=== PATIENT | female | born 1950 | race Caucasian/White ===

== ENCOUNTER 2018-02-19 07:14 | Day surgery (SDC) | payer MEDICARE ==
--- NOTE | 2018-02-10 16:38 | HP ---
CC: Dr. Padma Desouza * PREOPERATIVE HISTORY AND PHYSICAL: DATE OF ADMISSION/SURGERY: This patient is scheduled for same-day surgery admission by Dr. Allen on 02/19/18. DATE OF PREOPERATIVE HISTORY AND PHYSICAL EXAMINATION: 02/10/18. ATTENDING SURGEON: Dr. Opal Allen * (dictated by Maria Elena Michele NP). CHIEF COMPLAINT: Left breast nipple discharge. HISTORY OF PRESENT ILLNESS: The patient is a 67-year-old female, recently evaluated by Dr. Allen for left breast nipple discharge. The patient reports that for the past few months, her left breast was enlarged and about the same time, she noticed clear discharge from a duct in the left nipple. The nipple discharge was described as clear and spontaneous and unilateral. It did not appear bloody. She denies any other breast problems such as lumps or changes in the texture of the breast and she does do routine self-breast exam. She has never had radiation to the chest. She did have a breast biopsy 15 or 20 years ago, reportedly benign and knows that she has a clip in place. There are no first-degree relatives with breast cancer, but her maternal grandmother had breast cancer at age 76. There is no family history of ovarian cancer. She was on control pills for about 15 years, 38 years ago. She was 13 with her first menstrual period, 29 with the of her first child and she did breastfeed. She underwent an hysterectomy at age 40, although the ovaries were left in. Dr. Allen examined the patient and noted clear discharge from a central duct in the left breast. The discharge was heme negative. Dr. Allen has discussed the findings with the patient and has recommended left breast terminal duct excision as a same-day surgery procedure. She discussed the nature of the surgical procedure, the relevant risks and benefits and today, I reviewed the expected postoperative care and recovery. The patient has had a chance to ask questions and stated that she understands the information and is satisfied with the answers given to her questions. She will sign surgical consent on the day of surgery. PAST MEDICAL HISTORY: Significant for hypertension, type 2 diabetes mellitus, chronic non-alcoholic liver disease, and primary osteoarthritis. PAST SURGICAL HISTORY: section, July 1980; open cholecystectomy, October 1980; hysterectomy around 1989; partial thyroidectomy, date unknown; D and C x2 in the . OB HISTORY: 1, para 1. Status post hysterectomy. Last pelvic and Pap smear in 2015. Last mammogram, December 2017. MEDICATIONS: 1. Losartan/hydrochlorothiazide 50/12.5 mg 1 tablet daily every morning. 2. Pravachol 20 mg 1 tablet p.o. at bedtime. 3. Metformin 500 mg 2 tablets by mouth at bedtime, and she will hold that dose on the night before surgery. 4. Aspirin 81 mg p.o. daily, and she will hold that for 5 days before surgery. 5. Multivitamin daily. 6. Os-Saad plus D daily. ALLERGIES: PENICILLIN causes hives, SULFIDES cause shortness of breath and flushing of the face, HOLTER MONITOR GEL caused rash, CECLOR caused some type of unspecified reaction. FAMILY HISTORY: Maternal grandmother had breast cancer at age 76. No family history of ovarian cancer. No known anesthesia complications, bleeding tendencies, or clotting disorders. SOCIAL HISTORY: She is and lives alone. A friend will bring her to the hospital and pick her up after surgery. She is a non-smoker and rarely drinks alcohol. She denies the use of other substances. She routinely exercises with water, yoga, and Pilates. REVIEW OF SYSTEMS: Constitutional: No recent infections. No fevers, chills, excessive fatigue, or weight loss. Endocrine: Type 2 diabetes and she does not check fingersticks routinely, but her last hemoglobin A1c in November was 6.9 ; she has had thyroid disease and had a partial thyroidectomy many years ago. Hematologic: No easy bruising or bleeding. She did receive a blood transfusion in 1979 after the section. Breast Exam: As described in history of present illness. Respiratory: No dyspnea on exertion or chronic cough. Cardiovascular: No anginal chest pain or palpitations. Gastrointestinal : No nausea, vomiting, diarrhea, GI bleeding, or constipation. Genitourinary: No dysuria. Musculoskeletal: Osteoarthritis with no current complaints of joint or back pain. Neurologic: No headache, blurred vision. No areas of focal weakness or numbness. General: No previous anesthesia complications. No history of DVT or pulmonary embolism. While she has been on baby aspirin daily , she has noticed that she bleeds a little easier. PHYSICAL EXAMINATION GENERAL SURVEY: The patient is a 67-year-old female, well-developed, overweight , in no acute distress. VITAL SIGNS: Height 65 inches, weight 185 pounds, body mass index 30.8. Blood pressure 150/90, pulse 76 and regular, respiratory rate 16, temperature 97.4 tympanic. HEENT: Benign. NECK: Supple. No cervical lymphadenopathy. No supraclavicular lymphadenopathy. BREASTS: Slightly asymmetric with the left being slightly larger than the right. No skin dimpling or nipple retraction. Palpation of the right breast reveals no discrete masses and there is no nipple discharge; palpation of the left breast reveals no discrete masses, there is clear discharge from a central duct and the discharge is heme negative. No axillary adenopathy bilaterally. LUNGS: Breath sounds bilaterally clear and equal. HEART: Regular rate and rhythm. No murmurs or rubs appreciated. BACK: No CVA tenderness. ABDOMEN: Well-healed surgical scars. Active bowel sounds. Soft, nondistended , and nontender throughout. No obvious masses or organomegaly, or evidence of ventral hernia. PELVIC EXAM: Deferred. RECTAL EXAM: Deferred. EXTREMITIES: Warm without edema or skin ulceration. NEUROLOGIC: Alert and oriented x3. Steady gait. SKIN: Warm, dry, and intact. IMPRESSION: Left breast nipple discharge. PLAN: Same-day surgery admission to Dr. Allen's service on 02/19/18, for left breast terminal duct excision. SHELBY MICHELE, MATIAS [id number]/[facility] #: [id number] MICHAEL
[~2018-02-19 07:14] MED LIST: Buffered Lidocaine 0.9% SYRIN* 5 ML/SYR SYRINGE INTRADERM ONE; Sodium Citrate/Citric Acid* 15 ML UDC PO ONE
[2018-02-19] MEDS ORDERED: Clindamycin 900 MG IVPREMIX(* 900 MG/50 ML SDV IV ONE (07:22)
[2018-02-19] MEDS ORDERED: Sodium Citrate/Citric Acid* 15 ML UDC ONE (07:23)
[2018-02-19] MEDS ORDERED: Naloxone* 0.4 MG/ML 1 ML VIAL IV PRN (09:37)
[2018-02-19] MEDS ORDERED: Lidocaine 1% INJ* 10 MG/ML 30 ML SDV ONE (09:44)
[2018-02-19] MEDS ORDERED: Bupivacaine 0.5%* 50 ML VIAL ONE (09:44)
[2018-02-19] MEDS ORDERED: Midazolam* 1 MG/ML 2 ML VIAL (2 MG) ONE (09:59)
[2018-02-19] MEDS ORDERED: fentaNYL* 50 MCG/ML 2 ML VIAL (100 MCG VIAL) ONE (09:59)
[2018-02-19] MEDS ORDERED: Lidocaine 2% PF * 5 ML VIAL ONE (10:12)
[2018-02-19] MEDS ORDERED: Propofol* 10 MG/ML 20 ML BTL IV PUSH ONE (10:12)
--- NOTE | 2018-02-19 11:12 | BRIEFOPN ---
Brief Operative Note - Surgery Procedures: Procedures COLONOSCOPY (03/23/01) SKIN SUTURE NEC (12/18/94) 02/19/18 Op Note Pre-op dx: left breast nipple discharge Post-op dx: same Procedure: left breast terminal duct excision Surgeon: Alejandro Asst: Judd Anesth: local-MAC EBL: 10 cc SCDs on during surgery ABx: given pre-op Pt. tolerated the procedure well and was transferred to in a stable condition. CLFoster
[2018-02-19 11:59] VITALS: BP 128/78
--- NOTE | 2018-02-19 13:27 | OP ---
CC: Padma Desouza MD.* DATE OF OPERATION: 02/19/18 - SDS DATE OF : 50 SURGEON: Opal Allen MD DOCUMENT CONTROLLER: Judd. PRE-OP DIAGNOSIS: Left breast pathologic nipple discharge POST-OP DIAGNOSIS: Left breast pathologic nipple discharge OPERATIVE PROCEDURE: Left breast terminal duct excision INDICATIONS: Ms. Funes is a 67-year-old woman who presented to the office with symptomatic pathologic nipple discharge, prompting the plan for surgical intervention. DESCRIPTION OF PROCEDURE: She was brought to the operating room, placed on the OR table in a supine position and given IV sedation. The left breast was prepped and draped in the usual sterile fashion. After infiltrating with local anesthetic, a lacrimal probe was placed in the duct that was producing the discharge. This was somewhat difficult but it was very clear which duct was producing the discharge, so it was accurate. Then a curvilinear and circumareolar incision was made after infiltrating with local anesthetic and the subcutaneous tissue was divided with electrocautery in a subareolar fashion until the duct with the probe in it was encountered. This duct was then dissected free and doubly clamped and divided, and then ligated. The nipple side of the duct had a little bit of inspissated material that came out that was sent with the specimen ultimately. Then a cone of glandular tissue surrounding the duct was excised using electrocautery, marked in the usual fashion with the additional kassie of a double stitch marking the duct and handed off as a specimen. Hemostasis was assured with electrocautery. Once this appeared adequate closure was accomplished after instilling some additional local with 3-0 Vicryl in the subcutaneous layer and the skin was closed with 4- 0 Prolene in a subcuticular fashion. Steri-Strips and a dry sterile dressing were applied. All sponge and instrument counts were correct. The patient tolerated the procedure well and was transferred to Recovery in a stable condition. [id number]/[facility] #: [id number] [facility]
== END 2018-02-19 12:04 | disposition home or self-care (01) ==
LOC: OR 07:14
PROVIDERS: ATTEND Surgery
DX: D24.2 Benign neoplasm of left breast (principal); N64.52 Nipple discharge; I10 Essential (primary) hypertension; E11.9 Type 2 diabetes mellitus without complications; Z79.84 Long term (current) use of oral hypoglycemic drugs; M19.90 Unspecified osteoarthritis, unspecified site; K76.89 Other specified diseases of liver
CPT/HCPCS: 88307; A9270-GY; J2250; J2704; J3010

== ENCOUNTER 2018-11-16 06:18 | Inpatient (IN) | payer MEDICARE ==
--- NOTE | 2018-10-28 11:14 | HP ---
HISTORY AND PHYSICAL: DATE OF ADMISSION/SURGERY: 11/16/18. DATE OF OFFICE VISIT: 10/27/18. SURGEON: Danica Stoddard MD.* (DICTATED BY SANTANA SMITH) PROCEDURE: Left total knee arthroplasty. CHIEF COMPLAINT: Left knee pain. HISTORY OF PRESENT ILLNESS: Ms. Funes is a 67-year-old female with continued complaints of left knee pain. She has failed conservative treatment and elected to proceed with a left total knee arthroplasty. PAST MEDICAL HISTORY: Diabetes, hypertension, hyperlipidemia, and sleep apnea. PAST SURGICAL HISTORY: Hysterectomy, partial thyroidectomy, , D and C , left breast ductal excision, and cholecystectomy. CURRENT MEDICATIONS: 1. Trulicity 0.75 mg/0.5 mL injection once a week. 2. Atorvastatin calcium 10 mg daily. 3. Losartan potassium/hydrochlorothiazide 50/12.5 mg daily. 4. Metformin 500 mg 3 tablets once a day. 5. Aspirin 81 mg daily. ALLERGIES: PENICILLIN, SULFIDES, and CECLOR. FAMILY HISTORY: Coronary artery disease and diabetes. SOCIAL HISTORY: She is a 67-year-old female. She lives alone. She does not smoke or use drugs. Uses occasional alcohol. REVIEW OF SYSTEMS: A complete 14-point review of systems was reviewed with the patient. It was positive for diabetes. She denies history of DVT, PE, hepatitis, HIV or anesthesia problems. PHYSICAL EXAMINATION GENERAL: She is well developed, well nourished, in no acute distress. VITAL SIGNS: She stands 5 feet 5 inches tall, weighs 180 pounds. Her blood pressure is 138/86 and heart rate is 100. HEENT: Normocephalic, atraumatic. NECK: Supple. No palpable lymph nodes. PULMONARY: The lungs are clear to auscultation bilaterally. CARDIO: Regular rate and rhythm. Strong S1, S2. ABDOMEN: Soft, nontender, nondistended. NEUROLOGICAL: She is alert and oriented x3. MUSCULOSKELETAL: Left lower extremity: The skin is intact. There are no open wounds or abrasions. There is a moderate joint effusion of the left knee. She has some tenderness over the medial and lateral joint line. She walks with an antalgic type gait, favoring her left knee. Range of motion is 5 to 110 degrees of flexion with patellofemoral crepitus. She has 2+ dorsalis pedis pulse, intact sensation and her lower extremity muscle group strengths are intact at 5/5. ASSESSMENT AND PLAN: Ms. Funes is a 67-year-old female with end-stage osteoarthritis of the left knee. She has failed conservative treatment and elected to proceed with a left total knee arthroplasty. Her surgery is scheduled for 11/16/[address] Stoddard discussed the risks and benefits of the surgery at today's visit and all of her questions were answered. She will follow up with Dr. Stoddard 2 weeks after the surgery. SANTANA SMITH [id number]/[facility] #: [id number] MICHAEL
[~2018-11-16 06:18] MED LIST changes: -Sodium Citrate/Citric Acid* 15 ML UDC PO ONE; +Tranexamic Acid 1,000 MG in NS 0.9% 50 ML* (outpatient use) IV SCH
--- OUTSIDE RECORDS SUMMARY | 2018-11-16 06:21 | XMS REPORT | Continuity of Care Document ---
:1950 External Reference #:[id number] Author Name Rico Sue M.D. Address [address] [place] [address] Care Team Providers Name Role Phone Padma Desouza M.D. Primary Care Physician Unavailable Payers Type Date Identification Numbers Payment Provider Subscriber Policy Number: [id number] Medicare - [facility] Melissa Funes PayID: [id number] [address] [place] [address] Policy Number: [id number] [facility] Melissa Funes PayID: [id number] [address] [place] [address] Advance Directives Description No Information Available Problems Date Description Provider Status Onset: Essential hypertension Active Onset: 09/18/2015 Hypercholesterolemia Rico Sue M.D. Active Onset: 09/20/2015 Nuclear senile cataract Rico Sue M.D. Active Onset: 09/20/2015 Type 2 diabetes mellitus with mild Rico Sue M.D. 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 Onset: 10/09/2016 Type 2 diabetes mellitus with mild Rico Sue M.D. 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 Atorvastatin Active Tablets 10mg Unknown Calcium 000 Trulicity Active Solution 0.75mg/0.5 Inject Unknown 000 Pen-Inject ML 0.75MG Once A Week Losartan Active Tablets 50-12.5mg Cotton, Potassium/Peggs 000 Padma chlorothiazide M.D. Pravastatin Hx Tablets 20mg Cotton, Sodium 000 - Padma M.D. 018 Lisinopril Hx Tablets 10mg Cotton, 000 - Padma M.D. 016 Aspirin Ec Hx Tablets DR 81mg 1 daily Unknown 000 - 018 Lisinopril-Hydr Hx Tablets 10-12.5mg every Unknown ochlorothiazide 000 - day 017 Multiple Hx Tablets Unknown Vitamins 000 - 018 Calcium 500+D Hx Tablets 500-400mg- Unknown High Potency 000 - Unit 018 Immunizations Description No Information Available Vital Signs Description No Information Available Results Description No Information Available Procedures Date Code Description Status 05/11/2018 44401 Scanning Computerized Opthalmic Diagnostic Posterior Seg Completed Retina 05/11/2018 95074 Est Patient Comprehensive Exam Completed 10/16/2017 68492 Scanning Computerized Opthalmic Diagnostic Posterior Seg Completed Retina 10/16/2017 75358 Determination Of Refractive State Completed 10/16/2017 40341 Est Patient Comprehensive Exam Completed 04/14/2017 33843 Scanning Computerized Opthalmic Diagnostic Posterior Seg Completed Retina 04/14/2017 77013 Est Patient Comprehensive Exam Completed 10/09/2016 90448 Scanning Computerized Opthalmic Diagnostic Posterior Seg Completed Retina 10/09/2016 97895 Est Patient Comprehensive Exam Completed 09/20/2015 45554 Scanning Computerized Opthalmic Diagnostic Posterior Seg Completed Retina 09/20/2015 61814 Est Patient Comprehensive Exam Completed 09/19/2014 84301 Est Patient Comprehensive Exam Completed 09/19/2014 60277 Fundus Photography With Interpretation And Report Completed 09/19/2013 97871 Scanning Computerized Opthalmic Diagnostic Posterior Seg Completed Retina 09/19/2013 84792 Est Patient Comprehensive Exam Completed 09/09/2012 16382 Scanning Computerized Opthalmic Diagnostic Posterior Seg Completed Retina 09/09/2012 47943 Est Patient Intermediate Exam Completed 03/08/2012 05095 Scanning Computerized Opthalmic Diagnostic Posterior Seg Completed Retina 03/08/2012 46913 Determination Of Refractive State Completed 03/08/2012 06154 Est Patient Comprehensive Exam Completed 03/07/2011 82774 Scanning Computerized Opthalmic Diagnostic Posterior Seg Completed Retina 03/07/2011 00607 Est Patient Comprehensive Exam Completed 09/06/2010 36372 Est Patient Intermediate Exam Completed 03/07/2010 11803 Est Patient Intermediate Exam Completed 03/07/2010 18866 Determination Of Refractive State Completed 03/07/2010 76526 Scanning Laser W/Interp And Report Completed 09/06/2009 59567 Scanning Laser W/Interp And Report Completed 09/06/2009 77843 Est Patient Intermediate Exam Completed 03/06/2009 34592 Scanning Laser W/Interp And Report Completed 03/06/2009 20082 Est Patient Intermediate Exam Completed 10/12/2008 28260 Fundus Photography With Interpretation And Report Completed 10/12/2008 69042 Determination Of Refractive State Completed 10/12/2008 90086 Est Patient Intermediate Exam Completed 06/05/2008 09819 Scanning Laser W/Interp And Report Completed 06/05/2008 54880 Est Patient Intermediate Exam Completed 12/02/2007 66969 Est Patient Intermediate Exam Completed 12/02/2007 19518 Scanning Laser W/Interp And Report Completed 08/30/2007 33942 Scanning Laser W/Interp And Report Completed 08/30/2007 49939 Est Patient Comprehensive Exam Completed 06/01/2007 21445 Scanning Laser W/Interp And Report Completed 06/01/2007 27747 Est Patient Intermediate Exam Completed 06/05/2006 44522 Determination Of Refractive State Completed 06/05/2006 09332 Est Patient Comprehensive Exam Completed 05/30/2005 98302 Fundus Photography With Interpretation And Report Completed 05/30/2005 81859 Determination Of Refractive State Completed 05/30/2005 88833 Est Patient Comprehensive Exam Completed 02/23/2004 114 Polycarb SV Completed Encounters Type Date Location Provider Dx Diagnosis Office Visit 12/07/2006 Rico Cota, 250.00 Diabetes/ Type 2 W/O 1:00p gray STRANGE M.D. Complication Office Visit 02/23/2004 Rico Cota, 250.00 Diabetes/ Type 2 W/O 12:30p gray STRANGE M.D. Complication Plan of Treatment 11/15/2018 - Rico Sue M.D.[id number] Type 2 diabetes mellitus with mild nonproliferative diabetic retinopathy without macular edema, bilateralComments: Smoking can increase the risk of developing or worsening any eye related disease , as well as affect your overall health. If you are a smoker, we strongly recommend that you quit.If you are not a smoker, we strongly recommend that you do not start. I can detect diabetic changes in your eyes. Proper control of your diabetes is important for the health of your eyes. It is important that you keep all of your follow up appointments. Dr. Sue has sent a report to your primary care doctor, letting them know the current status of your retina.Follow up:6 Month Follow Up Diagnostic Refraction IOP Check Visual Field , 30-2 At your next visit, we are not planning to dilate your eyes. However, if you have any changes in your vision or new symptoms, there are certain situations that require us to dilate your eyes. If Dr. Sue requests any additional testing, that may require extra time. If you have any questions before your next appointment, please call our office at .H25.13 Age-related nuclear cataract, bilateralComments:You have been diagnosed with cataracts. If you are happy with your vision as it is now, then we willsee you at your next scheduled appointment. If you feel like your vision is getting worse before your scheduled appointment, please call Maria Elena or Rossy at .
--- OUTSIDE RECORDS SUMMARY | 2018-11-16 06:22 | XMS REPORT | Continuity of Care Document ---
:1950 External Reference #:[id number] Author Name Ankita Monteiro Care Team Providers Name Role Phone Padma Desouza MD Primary Care Physician Unavailable Payers Type Date Identification Numbers Payment Provider Subscriber Policy Number: [id number] Medicare Melissa Funes PayID: [id number] [address] [place] [address] Effective: 2015 Policy Number: [id number] Medicare Melissa Funes Expires: 2018 PayID: [id number] [address] [place] [address] Effective: 2015 Policy Number: [facility] Melissa Funes [id number] PayID: [id number] [address] [place] [address] Effective: 2012 Policy Number: [id number] [employer]ets Melissa Funes Expires: 2015 PayID: [id number] [address] [address] [place] [address] Effective: 2010 Policy Number: [id number] [facility] Melissa Funes Expires: 2012 Group Name: [facility] [address] [address] PayID: [id number] [place] Wilde [id number] Advance Directives Description No Information Available Problems Date Description Provider Status Onset: 12/06/2009 Type 2 diabetes mellitus Padma Desouza M.D. Active Onset: 12/06/2009 Benign essential hypertension Padma Desouza M.D. Active Onset: 11/09/2012 Chronic nonalcoholic liver disease Padma Desouza M.D. Active Onset: 12/21/2017 Localized, primary osteoarthritis Danica Stoddard M.D. Active Onset: 10/21/2018 Obstructive sleep apnea syndrome Padma Desouza M.D. Active Note: Dx 2006, never treated Family History Date Family Member(s) Problem(s) Comments General Diabetes General Heart Disease General Cancer General dimentia : (age 30 Father due to Auto Years) Accident Mother Heart Disease Mother Pacemaker Mother Atrial Fibrillation Siblings 3 1 sister and 2 brothers. All are First Brother due to Muscular () dystrophy : (age 30 Second Brother due to Muscular Years) dystrophy : (age 63 First Sister due to Alzheimer's Long course Years) Disease Social History Type Date Description Comments Sex Unknown Marital Status Lives With Alone Occupation 2010 Retired Tobacco Use Start: Unknown Never Smoked Exposed to 2nd hand Cigarettes smoke until age 22 ETOH Use Drinks Alcoholic Beverages Rarely Recreational Drug Use Denies Drug Use Tobacco Use Start: Unknown Patient has never smoked Smoking Status Reviewed: 11/11/18 Patient has never smoked Exercise Type/Frequency Exercises regularly aqua class 2x week, frequently carries firewood Allergies, Adverse Reactions, Alerts Date Description Reaction Status Severity Comments 06/16/2010 Penicillins HIVES Active Moderate 08/01/2010 Sulfites FLUSHED Active Moderate 07/04/2011 Holter Monitor Gel itchy spots Active rash 12/25/2014 Ceclor Active unknown 06/16/2010 NKDA Inactive Medications Medication Date Status Form Strength Qnty SIG Indications Ordering Provider Trulicmadelaine 05/26 Active Solution 0.75mg/0. 2ml inject Pen-Inject 5ML 0.75mg Cotton, once a M.D. week Atorvastatin 03/02 Active Tablets 10mg 90tab 1 by E78.5 Padma Calcium s mouth Cotton, every day M.D. Losartan 11/27 Active Tablets 50-12.5mg 30tab 1 by Padma Potassium/Hydroch s mouth Cotton, lorothiazide every day M.D. Freestyle Lite 12/21 Active 50uni for use Padma Test Strip ts once Cotton, daily M.D. Freestyle Lite 12/21 Active 50uni for Padma Lancets ts testing Cotton, once M.D. daily Metformin HCL ER 03/02 Active Tablets ER 500mg 270ta take 3 24HR bs tablets Cotton, by mouth M.D. once daily Blood Pressure 07/04 Active Kit 1unit 785.0 Padma Monitor /2010 s Leticia Desouza Wrist Splint 10/25 Active Misc 2unit wear at 782.0 [facility] Right And Left /2009 s night Leticia Desouza Aspirin Active Chewtabs 81mg 1 by Unknown /0000 mouth once daily Multi-Day Active Tablets 1 by Unknown Vitamins /0000 mouth every day Oscal+D Active 500/200mg daily Unknown /0000 Losartan 09/24 Hx Tablets 50mg 30tab 1 by [facility] Potassium s mouth Cotton, - every day M.D. 11/27 Losartan 08/24 Hx Tablets 50-12.5mg 30tab 1 by Nadiya Potassium/Hydroch s mouth Varn, N.P. lorothiazide - every day 09/24 Ventolin HFA 07/21 Hx Aerosol 108(90Bas 18uni Take 1 To e) ts 2 Puffs Varn, N.P. mcg/Act Every 4 Hours as Needed Asmanex HFA 07/17 Hx Aerosol 100mcg/Ac 13gm 1 R05 t inhalatio Varn, N.P. - n bid 08/16 Fluticasone 07/17 Hx Suspension 50mcg/Act 48gm 2 sprays R0 each Varn, N.P. - nostril 08/16 daily needed Cheratussin ac 06/16 Hx Solution 100-10mg/ 473ml 5 - 10 J06.9 5ML millilite Varn, N.P. - rs every 06/23 6 hours /2016 as needed cough Ventolin HFA 06/16 Hx Aerosol 108(90Bas 24gm 1 to 2 J06.9 e) inhalatio Varn, N.P. - mcg/Act ns every 06/30 4 hours /2016 as needed Bupropion HCL ER 06/16 Hx Tablets ER 150mg 90tab 1 by F32.9 Padma (XL) 24HR s mouth Cotton, - every day M.D. 10/07 Lisinopril-Hydroc 10/06 Hx Tablets 10-12.5mg 30tab 1 by Padma hlorothiazide s mouth Cotton, - every day M.D. 08/24 Triamcinolone 04/01 Hx Ointment 0.5% 30gm apply to R21 Padma Acetonide affected Cotton, - area M.D. 10/07 sparingly twice a day as needed for up to 2 weeks at a time Lisinopril 02/13 Hx Tablets 10mg 90tab take 1 s tablet by Cotton, - mouth M.D. 10/06 every day Pravachol 12/19 Hx Tablets 20mg 90tab take 1 E78.5 s tablet by Cotton, - mouth at M.D. 03/02 bedtime /2017 Hydrocortisone 11/15 Hx Lotion 2.5% 118un apply a 782.1 its thin film Cotton, - topically M.D. 11/20 two times /2014 a day Azithromycin 05/18 Hx Tablets 250mg 6tabs two tabs 786.2 day one, Hugo, - one daily M.D. 06/11 till Proair HFA 05/18 Hx Aerosol 108(90Bas 1unit two puffs 786.2 e) mcg/ac s every , - hours as M.D. 06/11 needed for wheeze and chest tightness . Transderm-Scop 11/13 Hx Patches 1.5mg 4unit apply to 250.00 72HR s skin Cotton, - behind M.D. 03/15 the ear /2011 once every 3 days Azithromycin 10/29 Hx Tablets 250mg 6tabs two tabs 461.9 Padma /2011 day one, Cotton, - one daily M.D. 11/08 till Fluticasone 10/29 Hx Suspension 50mcg/Act 1Mont 2 sprays 461.9 Padma Propionate h each Cotton, - nostril M.D. 11/12 daily needed Vivotif Luz 10/[address] 4caps 1 tablet every Cotton, - other day M.D. 03/15 until gone Freestyle Lite 09/18 Hx 100un two times Padma Lancets its daily or Cotton, - as needed M.D. 03/15 Glucometer - Free 09/05 Hx as Padma Style Lite /2010 directed Cotton, - M.D. 03/15 Freestyle Lite 09/05 Hx 100un use as Padma Test Strip its directed Cotton, - two times M.D. 03/15 daily or as needed dx:pcos/i gt Multi Vitamin 03/03 Hx Tablets 1 tablet once Cotton, - daily M.D. 04/05 OS-Saad 500 + D 03/03 Hx Tablets 500-200mg 1 tablet -Unit twice Cotton, - daily M.D. 04/05 Pravastatin 10/25 Hx Tablets 20mg 30tab Take 1 Padma s Tablet By Cotton, - Mouth AT M.D. 12/19 Bedtime Hydrochlorothiazi Hx Tablets 25mg 30tab 1/2 Unknown s tablet by - mouth 08/02 daily Metformin ER Hx 500mg 120un 4 tablets Padma /0000 its by mouth Cotton, - once M.D. 03/02 Pravastatin Hx Tablets 20mg 30tab 1 by Padma / s mouth Cotton, - once M.D. 10/25 daily at bedtime Omeprazole Hx 20mg 1 po hs Unknown /0000 - 12/21 Lisinopril Hx Tablets 40mg 30tab Take 1/2 Padma /0000 s Tablet Cotton, - Every Day M.D. 02/13 Doxycycline 00 Hx Capsules 100mg not Gonyou, Hyclate /0000 taking Alee E - PA-C 10/05 Hydrocodone-Aceta Hx Tablets 5-325mg not Gonyou, minophen /0000 taking Alee E, - PA-C 06/16 Calcium 1000 + D Hx Tablets 1000-800m once Unknown /0000 g-Unit daily - 10/07 Medications Administered in Office Medication Date Status Form Strength Qnty SIG Indications Ordering Provider Depomedrol Administered Injection Danica 40MG 018 Leticia Stoddard Depomedrol Administered Injection Danica 40MG 018 Leticia Stoddard Immunizations CPT Code Status Date Vaccine Reaction Lot # [id number] Given 07/21/2018 Influenza Virus Vaccine, Quadrivalent, Split, Preservative Free 83319 Given 07/17/2017 Pneumonia Vaccine [id number] 93998 Given 07/17/2017 Influenza Virus Vaccine, [id number] Quadrivalent, Split, Preservative Free 34735 Given 10/06/2016 Influenza Virus Vaccine, no immeditate [id number] Quadrivalent, Split Virus, reaction noted .. [place] [address] Given 04/01/2016 Pneumococcal Conjugate [id number] Vaccine 13 Valent For Intramuscular Use 46673 Given 10/02/2015 Influenza Virus Vaccine, [id number] Quadrivalent, Split, Preservative Free 71687 Given 09/26/2014 Flu Vaccine Split Virus [id number] Preservative Free For Indiv 3Yr Older 14201 Given 08/15/2013 Flu Vaccine Split Virus [id number] Preservative Free For Indiv 3Yr Older Q2037 Given 09/16/2012 Fluvirin Im 3Yrs And Older [id number] 00028 Given 09/16/2012 Tdap - [id number] Tetanus/Diptheria/Acellula r Pertussis 98079 Given 04/30/2012 Hepatitis A Vaccine Adult [id number] Dosage 01700 Given 04/30/2012 Zoster (Zostavax) [id number] 82687 Given 10/29/2011 Hepatitis A Vaccine Adult [id number] Dosage 15564 Given 09/04/2011 Influenza Virus 3Yrs & [id number] Over 59305 Given 08/02/2010 Influenza Virus 3Yrs & Over 37113 Given 10/16/2009 Influenza Virus Vaccine, Pandemic Formulation 27840 Given 10/16/2009 Administration Swine Flu Shot 30280 Given 09/13/2008 Influenza Virus 3Yrs & Over 80275 Given 09/13/2008 Influenza Virus 3Yrs & Over 28569 Given 08/17/2007 Influenza Virus 3Yrs & Over 56650 Given 08/31/2006 Influenza Virus 3Yrs & Over 07093 Given 08/31/2006 Influenza Virus 3Yrs & Over Vital Signs Date Vital Result Comment 11/11/2018 2:11pm Height 65 inches 5'5" Weight 181.00 lb Heart Rate 75 /min BP Systolic Sitting 127 mmHg BP Diastolic Sitting 73 mmHg O2 % BldC Oximetry 100 % BMI (Body Mass Index) 30.1 kg/m2 10/27/2018 8:13am Height 65 inches 5'5" Weight 179.00 lb Heart Rate 100 /min BP Systolic 138 mmHg BP Diastolic 86 mmHg BMI (Body Mass Index) 29.8 kg/m2 10/21/2018 10:24am Height 65 inches 5'5" Weight 179.00 lb Heart Rate 94 /min BP Systolic Sitting 140 mmHg BP Diastolic Sitting 88 mmHg O2 % BldC Oximetry 98 % BMI (Body Mass Index) 29.8 kg/m2 06/30/2018 8:15am Height 65 inches 5'5" Weight 186.00 lb Heart Rate 77 /min BP Systolic 134 mmHg BP Diastolic 79 mmHg Body Temperature 97.1 F Pain Level 2 BMI (Body Mass Index) 30.9 kg/m2 06/25/2018 9:27am Height 65 inches 5'5" Weight 183.00 lb Heart Rate 74 /min BP Systolic Sitting 120 mmHg BP Diastolic Sitting 77 mmHg O2 % BldC Oximetry 98 % BMI (Body Mass Index) 30.4 kg/m2 05/31/2018 9:01am Height 65 inches 5'5" Weight 186.00 lb BP Systolic 136 mmHg BP Diastolic 70 mmHg Respiratory Rate 18 /min Pain Level 4 BMI (Body Mass Index) 30.9 kg/m2 03/24/2018 8:03am Height 65 inches 5'5" Weight 186.00 lb Heart Rate 88 /min BP Systolic 144 mmHg BP Diastolic 76 mmHg BMI (Body Mass Index) 30.9 kg/m2 03/02/2018 8:54am Weight 187.00 lb Heart Rate 66 /min BP Systolic 138 mmHg BP Diastolic 76 mmHg Body Temperature 97.4 F O2 % BldC Oximetry 99 % 03/01/2018 3:30pm Heart Rate 72 /min BP Systolic Sitting 160 mmHg BP Diastolic Sitting 90 mmHg Respiratory Rate 18 /min Body Temperature 97.6 F 02/10/2018 1:56pm Height 65 inches 5'5" Weight 185.00 lb Heart Rate 76 /min BP Systolic 150 mmHg BP Diastolic 90 mmHg Respiratory Rate 16 /min Body Temperature 97.4 F BMI (Body Mass Index) 30.8 kg/m2 02/02/2018 10:19am Height 65 inches 5'5" Weight 185.00 lb Heart Rate 66 /min BP Systolic Sitting 144 mmHg BP Diastolic Sitting 82 mmHg Respiratory Rate 16 /min Body Temperature 97.3 F BMI (Body Mass Index) 30.8 kg/m2 12/21/2017 7:59am Height 65 inches 5'5" Weight 182.00 lb Heart Rate 76 /min BP Systolic 130 mmHg BP Diastolic 70 mmHg BMI (Body Mass Index) 30.3 kg/m2 11/27/2017 8:35am Height 65 inches 5'5" Weight 183.38 lb Heart Rate 79 /min BP Systolic 136 mmHg BP Diastolic 80 mmHg Body Temperature 98.1 F O2 % BldC Oximetry 98 % BMI (Body Mass Index) 30.5 kg/m2 10/08/2017 8:00am Height 65 inches 5'5" Weight 185.00 lb Heart Rate 72 /min BP Systolic Sitting 128 mmHg BP Diastolic Sitting 96 mmHg Respiratory Rate 14 /min O2 % BldC Oximetry 98 % BMI (Body Mass Index) 30.8 kg/m2 Neck Circumference in inches 16.5 09/24/2017 10:31am Weight 187.75 lb Heart Rate 87 /min BP Systolic 130 mmHg BP Diastolic 80 mmHg O2 % BldC Oximetry 98 % 07/17/2017 8:44am Weight 181.25 lb Heart Rate 84 /min BP Systolic 112 mmHg BP Diastolic 70 mmHg Body Temperature 97.3 F O2 % BldC Oximetry 97 % 06/23/2017 11:15am Height 65 inches 5'5" Weight 184.25 lb Heart Rate 93 /min BP Systolic 130 mmHg BP Diastolic 60 mmHg Body Temperature 98.1 F O2 % BldC Oximetry 98 % BMI (Body Mass Index) 30.7 kg/m2 06/16/2017 11:32am Weight 185.50 lb Heart Rate 89 /min BP Systolic 120 mmHg BP Diastolic 72 mmHg Body Temperature 98.7 F O2 % BldC Oximetry 97 % 10/06/2016 8:39am Weight 186.00 lb Heart Rate 57 /min BP Systolic Sitting 140 mmHg BP Diastolic Sitting 80 mmHg O2 % BldC Oximetry 98 % 04/01/2016 3:50pm Height 64 inches 5'4" Weight 178.00 lb Heart Rate 90 /min BP Systolic Sitting 140 mmHg BP Diastolic Sitting 74 mmHg Body Temperature 97.1 F O2 % BldC Oximetry 98 % BMI (Body Mass Index) 30.6 kg/m2 01/17/2016 3:40pm Height 64.25 inches 5'4.25" Weight 176.50 lb Heart Rate 53 /min BP Systolic Sitting 141 mmHg BP Diastolic Sitting 74 mmHg Body Temperature 97.0 F Pain Level 0 BMI (Body Mass Index) 30.1 kg/m2 01/15/2016 11:40am Height 64.25 inches 5'4.25" Weight 176.00 lb Heart Rate 60 /min BP Systolic Sitting 149 mmHg BP Diastolic Sitting 77 mmHg Body Temperature 97.2 F Pain Level 4 O2 % BldC Oximetry 97 % BMI (Body Mass Index) 30.0 kg/m2 10/02/2015 3:56pm Height 64.25 inches 5'4.25" Weight 178.00 lb Heart Rate 69 /min BP Systolic Sitting 135 mmHg BP Diastolic Sitting 76 mmHg Body Temperature 97.6 F O2 % BldC Oximetry 97 % BMI (Body Mass Index) 30.3 kg/m2 04/09/2015 11:02am Weight 174.00 lb Heart Rate 73 /min BP Systolic Sitting 141 mmHg BP Diastolic Sitting 87 mmHg Body Temperature 98.0 F 12/25/2014 1:57pm Height 64 inches 5'4" Weight 170.00 lb BP Systolic 140 mmHg BP Diastolic 82 mmHg Pain Level 4 BMI (Body Mass Index) 29.2 kg/m2 11/21/2014 4:41pm Height 64.5 inches 5'4.50" Weight 173.50 lb Heart Rate 58 /min BP Systolic Sitting 126 mmHg BP Diastolic Sitting 68 mmHg Body Temperature 97.8 F O2 % BldC Oximetry 98 % BMI (Body Mass Index) 29.3 kg/m2 09/26/2014 2:59pm Height 64.5 inches 5'4.50" Weight 169.00 lb Heart Rate 66 /min BP Systolic Sitting 128 mmHg BP Diastolic Sitting 74 mmHg Body Temperature 98.1 F BMI (Body Mass Index) 28.6 kg/m2 04/05/2014 9:02am Weight 170.50 lb Heart Rate 64 /min BP Systolic 120 mmHg BP Diastolic 58 mmHg Respiratory Rate 16 /min Body Temperature 97.1 F 12/21/2013 9:49am Weight 176.50 lb Heart Rate 62 /min BP Systolic Sitting 114 mmHg BP Diastolic Sitting 60 mmHg 11/15/2013 11:07am Weight 187.25 lb Heart Rate 70 /min BP Systolic Sitting 128 mmHg BP Diastolic Sitting 80 mmHg 08/15/2013 1:24pm Weight 186.00 lb Heart Rate 60 /min BP Systolic Sitting 142 mmHg BP Diastolic Sitting 76 mmHg 05/10/2013 9:21am Weight 182.00 lb Heart Rate 80 /min BP Systolic Sitting 122 mmHg BP Diastolic Sitting 76 mmHg 03/23/2013 3:09pm Height 182 inches 15'2" Heart Rate 68 /min BP Systolic Sitting 128 mmHg BP Diastolic Sitting 78 mmHg 12/17/2012 9:03am Height 64.5 inches 5'4.50" Weight 182.25 lb Heart Rate 80 /min BP Systolic Sitting 130 mmHg BP Diastolic Sitting 76 mmHg BMI (Body Mass Index) 30.8 kg/m2 09/16/2012 9:23am Height 64.5 inches 5'4.50" Weight 185.00 lb Heart Rate 78 /min BP Systolic Sitting 124 mmHg BP Diastolic Sitting 76 mmHg BMI (Body Mass Index) 31.3 kg/m2 06/11/2012 12:48pm Height 64.5 inches 5'4.50" Weight 182.00 lb Heart Rate 72 /min BP Systolic Sitting 122 mmHg BP Diastolic Sitting 74 mmHg BMI (Body Mass Index) 30.8 kg/m2 05/18/2012 4:04pm Height 64.5 inches 5'4.50" Weight 184.00 lb Heart Rate 88 /min BP Systolic Sitting 138 mmHg BP Diastolic Sitting 84 mmHg Body Temperature 98.6 F O2 % BldC Oximetry 96 % BMI (Body Mass Index) 31.1 kg/m2 03/16/2012 8:55am Height 64.5 inches 5'4.50" Weight 185.00 lb Heart Rate 72 /min BP Systolic Sitting 142 mmHg BP Diastolic Sitting 78 mmHg BMI (Body Mass Index) 31.3 kg/m2 11/13/2011 10:41am Height 64.5 inches 5'4.50" Weight 184.00 lb Heart Rate 80 /min BP Systolic Standing 138 mmHg BP Diastolic Standing 82 mmHg BMI (Body Mass Index) 31.1 kg/m2 10/29/2011 10:09am Height 64.5 inches 5'4.50" Weight 183.00 lb Heart Rate 76 /min BP Systolic Sitting 136 mmHg BP Diastolic Sitting 76 mmHg BMI (Body Mass Index) 30.9 kg/m2 10/15/2011 9:36am Height 64.5 inches 5'4.50" Weight 183.00 lb Heart Rate 80 /min BP Systolic Sitting 120 mmHg BP Diastolic Sitting 64 mmHg BMI (Body Mass Index) 30.9 kg/m2 09/04/2011 11:28am Height 64.5 inches 5'4.50" Weight 183.00 lb Heart Rate 76 /min BP Systolic Sitting 128 mmHg BP Diastolic Sitting 74 mmHg BMI (Body Mass Index) 30.9 kg/m2 07/04/2011 8:38am Height 64.5 inches 5'4.50" Weight 183.00 lb Heart Rate 68 /min supine: 60, standin BP Systolic Sitting 128 mmHg supine: 126/78 BP Diastolic Sitting 78 mmHg supine: 126/78 BMI (Body Mass Index) 30.9 kg/m2 06/12/2011 2:42pm Height 64.5 inches 5'4.50" Weight 182.00 lb Heart Rate 72 /min BP Systolic Sitting 112 mmHg BP Diastolic Sitting 64 mmHg BMI (Body Mass Index) 30.8 kg/m2 03/03/2011 3:39pm Weight 188.00 lb Heart Rate 72 /min BP Systolic 110 mmHg BP Diastolic 78 mmHg 10/25/2010 1:40pm Height 64.75 inches 5'4.75" Weight 187.00 lb Heart Rate 78 /min BP Systolic 118 mmHg BP Diastolic 80 mmHg BMI (Body Mass Index) 31.4 kg/m2 08/02/2010 4:14pm Weight 185.50 lb Heart Rate 60 /min BP Systolic 130 mmHg BP Diastolic 70 mmHg Results Test Date Facility Test Result H/L Range Note CBC Auto Diff 11/04/2018 [facility] White Blood 6.5 10^3/uL N 3.5-10.[address] [place] [address] [phone] Red Blood Count 4.11 10^6/uL N 4.00-5.40 Hemoglobin 12.2 g/dL N 12.0-16.0 Hematocrit 37 % N 35-47 Mean Corpuscular Volume 90 fL N 80-97 Mean Corpuscular Hemoglobin 30 pg N 27-31 Mean Corpuscular HGB Conc 33 g/dL N 31-36 Red Cell Distribution Width 14 % N 10.5-15 Platelet Count 226 10^3/uL N 150-450 Mean Platelet Volume 9.8 fL N 7.4-10.4 Abs Neutrophils 3.6 10^3/uL N 1.5-7.7 Abs Lymphocytes 2.3 10^3/uL N 1.0-4.8 Abs Monocytes 0.5 10^3/uL N 0-0.8 Abs Eosinophils 0.1 10^3/uL N 0-0.6 Abs Basophils 0 10^3/uL N 0-0.2 Abs Nucleated RBC 0 10^3/uL Granulocyte % 54.6 % Lymphocyte % 34.6 % Monocyte % 8.1 % Eosinophil % 2.1 % Basophil % 0.6 % Nucleated Red Blood Cells % 0 Urinalysis Profile 11/04/2018 [facility] Urine Color Straw [address] [place] [address] [phone] Urine Appearance Clear Urine Specific [place] 1.008 Low 1.010-1.030 Urine pH 7.0 N 5-9 Urine Urobilinogen Negative Negative Urine Ketones Negative Negative Urine Protein Negative Negative Urine Leukocytes Negative Negative Urine Blood Negative Negative Urine Nitrite Negative Negative Urine Bilirubin Negative Negative Urine Glucose Negative Negative Inr/Protime 11/04/2018 [facility] Inr 0.90 N 0.77-1.02 [address] [place] [address] [phone] Laboratory test 11/04/2018 [facility] Partial 33.3 seconds N 26.0-36.3 finding [address] [facility] [place] [address] PTT [phone] Comp Metabolic 11/04/2018 [facility] Sodium 138 mmol/L N 135- 145 Panel [address] [place] [address] [phone] Potassium 4.3 mmol/L N 3.5-5.0 Chloride 101 mmol/L N 101-111 Co2 Carbon Dioxide 31 mmol/L N 22-32 Anion Gap 6 mmol/L N 2-11 Glucose 109 mg/dL High 70-100 Blood Urea Nitrogen 13 mg/dL N 6-24 Creatinine 0.81 mg/dL N 0.51-0.95 BUN/Creatinine Ratio 16.0 N 8-20 Calcium 9.7 mg/dL N 8.6-10.3 Total Protein 7.1 g/dL N 6.4-8.9 Albumin 4.1 g/dL N 3.2-5.2 Globulin 3.0 g/dL N 2-4 Albumin/Globulin Ratio 1.4 N 1-3 Total Bilirubin 0.40 mg/dL N 0.2-1.0 Alkaline Phosphatase 78 U/L N 34-104 Alt 37 U/L N 7-52 Ast 31 U/L N 13-39 Egfr Non- 70.3 >60 Egfr 85.1 >60 1 Type & Screen 11/04/2018 [facility] Patient Blood Type O Positive [address] [place] [address] [phone] Antibody Screen NEGATIVE Urine Culture And 11/04/2018 [facility] Urine Culture SEE RESULT [address] [place] [address] [phone] Laboratory test 10/21/2018 [facility] Hemoglobin A1c 6.4 5-7 finding Lipid Profile 06/11/2018 [facility] Triglycerides 115 mg/dL 3 (Trig/Chol/HDL) [address] [place] [address] [phone] Cholesterol 100 mg/dL 4 HDL Cholesterol 45.4 mg/dL 5 LDL Cholesterol 32 mg/dL 6 Comp Metabolic Panel 06/11/2018 [facility] Sodium 138 mmol/L N 135-[address] [place] [address] [phone] Potassium 4.6 mmol/L N 3.5-5.0 Chloride 101 mmol/L N 101-111 Co2 Carbon Dioxide 30 mmol/L N 22-32 Anion Gap 7 mmol/L N 2-11 Glucose 102 mg/dL High 70-100 Blood Urea Nitrogen 14 mg/dL N 6-24 Creatinine 0.90 mg/dL N 0.51-0.95 BUN/Creatinine Ratio 15.6 N 8-20 Calcium 10.2 mg/dL N 8.6-10.3 Total Protein 6.9 g/dL N 6.4-8.9 Albumin 4.0 g/dL N 3.2-5.2 Globulin 2.9 g/dL N 2-4 Albumin/Globulin Ratio 1.4 N 1-3 Total Bilirubin 0.60 mg/dL N 0.2-1.0 Alkaline Phosphatase 63 U/L N 34-104 Alt 50 U/L N 7-52 Ast 43 U/L High 13-39 Egfr Non- 62.5 >60 Egfr 75.6 >60 7 Laboratory test 06/11/2018 [facility] Hemoglobin A1c 6.9 % High 4.0-5.6 [address] (Glyco HGB) [place] [address] [phone] Urine 06/11/2018 [facility] Ur Microalbumin < 15.[address] (mg/L) [place] [address] [phone] Urine Creatinine 126.07 mg/dL Urine Microalbumin/Creatinine TNP <31 9 Laboratory test 06/11/2018 [facility] Vitamin B12 333 pg/mL N 180-914 [address] [place] [address] [phone] Laboratory test 02/25/2018 [facility] Hemoglobin A1c 7.1 % High 4.0-5.[address] (Glyco HGB) [place] [address] [phone] Comp Metabolic 02/25/2018 [facility] Sodium 137 Low 139-[address] mmol/[place] [address] [phone] Potassium 4.4 mmol/L N 3.5-5.0 Chloride 101 mmol/L N 101-111 Co2 Carbon Dioxide 28 mmol/L N 22-32 Anion Gap 8 mmol/L N 2-11 Glucose 136 mg/dL High 70-100 Blood Urea Nitrogen 18 mg/dL N 6-24 Creatinine 0.94 mg/dL N 0.51-0.95 BUN/Creatinine Ratio 19.1 N 8-20 Calcium 10.1 mg/dL N 8.6-10.3 Total Protein 7.2 g/dL N 6.4-8.9 Albumin 3.9 g/dL N 3.2-5.2 Globulin 3.3 g/dL N 2-4 Albumin/Globulin Ratio 1.2 N 1-3 Total Bilirubin 0.40 mg/dL N 0.2-1.0 Alkaline Phosphatase 82 U/L N 34-104 Alt 79 U/L High 7-52 Ast 66 U/L High 13-39 Egfr Non- 59.4 >60 Egfr 76.4 >60 12 Laboratory test 02/19/2018 [facility] Surgical SEE RESULT [address] [place] [address] [phone] Laboratory test 02/19/2018 [facility] Point of Care 148 mg/dL High 70-10 [address] Glucose 0 [place] [address] [phone] Liver Function 09/10/2017 [facility] Total Protein 6.9 g/dL N 6.4-[address] [place] [address] [phone] Albumin 3.7 g/dL N 3.2-5.2 Globulin 3.2 g/dL N 2-4 Albumin/Globulin Ratio 1.2 N 1-3 Total Bilirubin 0.50 mg/dL N 0.2-1.0 Direct Bilirubin 0.10 mg/dL N 0.03-0.18 Indirect Bilirubin 0.4 mg/dL N 0.3-1.0 Alkaline Phosphatase 66 U/L N 34-104 Alt 71 U/L High 7-52 Ast 59 U/L High 13-39 Laboratory test 09/10/2017 [facility] Hemoglobin A1c 6.9 % High 4.0-5.6 [address] [place] [address] [phone] Lipid Profile 06/05/2017 [facility] Triglycerides 138 N 16 (Trig/Chol/HDL) [address] mg/[place] [address] [phone] Cholesterol 142 mg/dL N 17 HDL Cholesterol 44.2 mg/dL N 18 LDL Cholesterol 70 mg/dL N 19 Comp Metabolic Panel 06/05/2017 [facility] Sodium 132 mmol/L Low 133-[address] [place] [address] [phone] Potassium 4.4 mmol/L N 3.5-5.0 Chloride 98 mmol/L Low 101-111 Co2 Carbon Dioxide 28 mmol/L N 22-32 Anion Gap 6 mmol/L N 2-11 Glucose 133 mg/dL High 70-100 Blood Urea Nitrogen 15 mg/dL N 6-24 Creatinine 0.85 mg/dL N 0.51-0.95 BUN/Creatinine Ratio 17.6 N 8-20 Calcium 9.5 mg/dL N 8.6-10.3 Total Protein 7.2 g/dL N 6.4-8.9 Albumin 3.9 g/dL N 3.2-5.2 Globulin 3.3 g/dL N 2-4 Albumin/Globulin Ratio 1.2 N 1-3 Total Bilirubin 0.60 mg/dL N 0.2-1.0 Alkaline Phosphatase 59 U/L N 34-104 Alt 86 U/L High 7-52 Ast 73 U/L High 13-39 Egfr Non- 66.9 N >60 Egfr 86.1 N >60 20 Laboratory test 06/05/2017 [facility] Hemoglobin A1c 7.1 % High Less [address] (Glyco HGB) than 6.0 [place] [address] [phone] Urine 06/05/2017 [facility] Urine 172.44 N Microalbumin [address] Creatinine mg/[place] [address] [phone] Ur Microalbumin (mg/L) < 15.0 mg/L N Urine Microalbumin/Creatinine TNP ug/mg N <31 22 Laboratory test 10/06/2016 [facility] Hemoglobin A1c 6.5 5-7 finding Lipid Profile 03/31/2016 [facility] Triglycerides 153 mg/dL N 23 (Trig/Chol/HDL) [address] [place] [address] [phone] Cholesterol 154 mg/dL N 24 HDL Cholesterol 49.7 mg/dL N 25 LDL Cholesterol 74 mg/dL N 26 Comp Metabolic Panel 03/31/2016 [facility] Sodium 136 mmol/L N 133-[address] [place] [address] [phone] Potassium 4.6 mmol/L N 3.5-5.0 Chloride 102 mmol/L N 101-111 Co2 Carbon Dioxide 29 mmol/L N 22-32 Anion Gap 5 mmol/L N 2-11 Glucose 112 mg/dL High 70-100 Blood Urea Nitrogen 13 mg/dL N 6-24 Creatinine 0.91 mg/dL N 0.51-0.95 BUN/Creatinine Ratio 14.3 N 8-20 Calcium 9.5 mg/dL N 8.6-10.3 Total Protein 7.1 g/dL N 6.4-8.9 Albumin 3.9 g/dL N 3.2-5.2 Globulin 3.2 g/dL N 2-4 Albumin/Globulin Ratio 1.2 N 1-3 Total Bilirubin 0.50 mg/dL N 0.2-1.0 Alkaline Phosphatase 57 U/L N 34-104 Alt 31 U/L N 7-52 Ast 28 U/L N 13-39 Egfr Non- 62.0 N >60 Egfr 79.8 N >60 27 Laboratory test 03/31/2016 [facility] Hemoglobin A1c 6.0 % N Less [address] (Glyco HGB) than 6.0 [place] [address] [phone] Urine 03/31/2016 [facility] Ur Microalbumin 14.0 N Microalbumin [address] (mg/L) mg/[place] [address] [phone] Urine Creatinine 210.95 mg/dL N Urine Microalbumin/Creatinine 6.6 ug/mg N <31 Comp Metabolic Panel 09/20/2015 [facility] Sodium 135 mmol/L N 133-[address] [place] [address] [phone] Potassium 4.7 mmol/L N 3.5-5.0 Chloride 100 mmol/L Low 101-111 Co2 Carbon Dioxide 29 mmol/L N 22-32 Anion Gap 6 mmol/L N 2-11 Glucose 122 mg/dL High 70-100 Blood Urea Nitrogen 15 mg/dL N 6-24 Creatinine 0.85 mg/dL N 0.51-0.95 BUN/Creatinine Ratio 17.6 N 8-20 Calcium 9.5 mg/dL N 8.6-10.3 Total Protein 7.2 g/dL N 6.4-8.9 Albumin 4.1 g/dL N 3.2-5.2 Globulin 3.1 g/dL N 2-4 Albumin/Globulin Ratio 1.3 N 1-3 Total Bilirubin 0.40 mg/dL N 0.2-1.0 Alkaline Phosphatase 64 U/L N 34-104 Alt 28 U/L N 7-52 Ast 27 U/L N 13-39 Egfr Non- 67.3 N >60 Egfr 86.6 N >60 29 Laboratory test 09/20/2015 [facility] Hemoglobin A1c 6.3 % High Less [address] (Glyco HGB) than 6.0 [place] [address] [phone] Urine 03/13/2015 [facility] Ur Microalbumin < 5.0 N [address] (mg/L) mg/[place] [address] [phone] Urine Creatinine 75.40 mg/dL N Urine Microalbumin/Creatinine TNP ug/mg N <31 32 Comp Metabolic Panel 03/13/2015 [facility] Sodium 137 mmol/L N 133-[address] [place], [place] [id number] [phone] Potassium 4.3 mmol/L N 3.5-5.0 Chloride 104 mmol/L N 101-111 Co2 Carbon Dioxide 29 mmol/L N 22-32 Anion Gap 4 mmol/L N 2-11 Glucose 121 mg/dL High 70-100 Blood Urea Nitrogen 14 mg/dL N 6-24 Creatinine 0.87 mg/dL N 0.51-0.95 BUN/Creatinine Ratio 16.1 N 8-20 Calcium 9.3 mg/dL N 8.6-10.3 Total Protein 6.7 g/dL N 6.4-8.9 Albumin 3.9 g/dL N 3.2-5.2 Globulin 2.8 g/dL N 2-4 Albumin/Globulin Ratio 1.4 N 1-3 Total Bilirubin 0.30 mg/dL N 0.2-1.0 Alkaline Phosphatase 58 U/L N 34-104 Alt 26 U/L N 7-52 Ast 24 U/L N 13-39 Egfr Non- 65.6 N >60 Egfr 84.3 N >60 33 Lipid Profile 03/13/2015 [facility] Triglycerides 132 mg/dL N 34 (Trig/Chol/HDL) [address] [place] [address] [phone] Cholesterol 133 mg/dL N 35 HDL Cholesterol 47.9 mg/dL N 36 LDL Cholesterol 59 mg/dL N 37 Laboratory test 03/13/2015 [facility] TSH (Thyroid 0.80 N 0.34 -5.[address] Stimulating IU/[place] [address] Horm) [phone] Hemoglobin A1c 6.3 % High Less than 6.0 39 Comp Metabolic Panel 02/19/2015 [facility] Sodium 135 mmol/L N 133-[address] [place], [place] [id number] [phone] Potassium 4.6 mmol/L N 3.5-5.0 Chloride 102 mmol/L N 101-111 Co2 Carbon Dioxide 29 mmol/L N 22-32 Anion Gap 4 mmol/L N 2-11 Glucose 114 mg/dL High 70-100 Blood Urea Nitrogen 20 mg/dL N 6-24 Creatinine 0.89 mg/dL N 0.51-0.95 BUN/Creatinine Ratio 22.5 High 8-20 Calcium 9.4 mg/dL N 8.6-10.3 Total Protein 7.0 g/dL N 6.4-8.9 Albumin 4.0 g/dL N 3.2-5.2 Globulin 3.0 g/dL N 2-4 Albumin/Globulin Ratio 1.3 N 1-3 Total Bilirubin 0.30 mg/dL N 0.2-1.0 Alkaline Phosphatase 75 U/L N 34-104 Alt 26 U/L N 7-52 Ast 25 U/L N 13-39 Egfr Non- 63.9 N >60 Egfr 82.1 N >60 41 Laboratory test 02/19/2015 [facility] Hemoglobin A1c 6.5 % High Less than [address] 6[address]0 [place] [address] [phone] Laboratory test 09/22/2014 [facility] Hemoglobin A1c 7.2 % High Less than [address] 6[address]0 [place] [address] [phone] Comp Metabolic 09/22/2014 [facility] Sodium 139 N 133-[address] mmol/[place] [address] [phone] Potassium 4.4 mmol/L N 3.5-5.0 44 Chloride 104 mmol/L N 101-111 Co2 Carbon Dioxide 30 mmol/L N 22-32 Anion Gap 5 mmol/L N 2-11 Glucose 100 mg/dL N 70-100 Blood Urea Nitrogen 14 mg/dL N 6-24 Creatinine 0.91 mg/dL N 0.51-0.95 BUN/Creatinine Ratio 15.4 N 8-20 Calcium 9.4 mg/dL N 8.6-10.3 Total Protein 6.6 g/dL N 6.4-8.9 Albumin 3.9 g/dL N 3.2-5.2 Globulin 2.7 g/dL N 2-4 Albumin/Globulin Ratio 1.4 N 1-3 Total Bilirubin 0.40 mg/dL N 0.2-1.0 Alkaline Phosphatase 66 U/L N 34-104 Alt 34 U/L N 7-52 Ast 52 U/L High 13-39 Egfr Non- 62.4 N >60 Egfr 80.3 N >60 45 Laboratory test 05/17/2014 [facility] Hemoglobin A1c 6.3 % High Less than [address] 6[address] [place] [address] [phone] Comp Metabolic 02/15/2014 [facility] Sodium 137 N 133-[address] mmol/[place] [address] [phone] Potassium 4.5 mmol/L N 3.7-5.6 Chloride 103 mmol/L N 101-111 Co2 Carbon Dioxide 27 mmol/L N 22-32 Anion Gap 7 mmol/L N 2-11 Glucose 99 mg/dL N 70-100 Blood Urea Nitrogen 18 mg/dL N 6-24 Creatinine 0.89 mg/dL N 0.51-0.95 BUN/Creatinine Ratio 20.2 High 8-20 Calcium 9.4 mg/dL N 8.6-10.3 Total Protein 7.0 g/dL N 6.4-8.9 Albumin 4.1 g/dL N 3.2-5.2 Globulin 2.9 g/dL N 2-4 Albumin/Globulin Ratio 1.4 N 1-3 Total Bilirubin 0.50 mg/dL N 0.2-1.0 Alkaline Phosphatase 54 U/L N 34-104 Alt 28 U/L N 7-52 Ast 28 U/L N 13-39 Egfr Non- 64.1 N >60 Egfr 82.4 N >60 47 Lipid Profile 02/15/2014 [facility] Triglycerides 100 mg/dL N 48 (Trig/Chol/HDL) [address] [place] [address] [phone] Cholesterol 128 mg/dL N 49 HDL Cholesterol 42.6 mg/dL N 50 LDL Cholesterol 65 mg/dL N 51 Urine Microalbumin 02/15/2014 [facility] Ur Microalbumin 5.0 mg/ dL N <30 [address] (mg/L) [place] [address] [phone] Urine Creatinine 74.90 mg/dL N Urine Microalbumin/Creatinine 6.6 N Less Than 31 Laboratory test 02/15/2014 [facility] Hemoglobin A1c 6.1 % High Less than [address] [place] [address] [phone] Liver Function 12/21/2013 [facility] Total Protein 7.3 g/dL 6.4-8.[address] [place] [address] [phone] Albumin 4.1 g/dL 3.2-5.2 Globulin 3.2 g/dL 2-4 Albumin/Globulin Ratio 1.3 1-3 Total Bilirubin 0.40 mg/dL 0.2-1.0 Direct Bilirubin 0.10 mg/dL 0.03-0.18 Indirect Bilirubin 0.3 mg/dL 0.3-1.0 Alkaline Phosphatase 60 U/L 34-104 Alt 61 U/L High 7-52 Ast 46 U/L High 13-39 Comp Metabolic Panel 11/15/2013 [facility] Sodium 137 mmol/L 133-[address] [place] [address] [phone] Potassium 4.5 mmol/L 3.5-5.0 Chloride 101 mmol/L 101-111 Co2 Carbon Dioxide 30.0 mmol/L 22-32 Anion Gap 6.0 mmol/L 2-11 Glucose 120 mg/dL High 70-100 Blood Urea Nitrogen 9 mg/dL 6-24 Creatinine 0.80 mg/dL 0.50-1.40 BUN/Creatinine Ratio 11.3 8-20 Calcium 9.5 mg/dL 8.1-9.9 Total Protein 7.3 g/dL 6.2-8.1 Albumin 3.9 g/dL 3.2-5.2 Globulin 3.4 g/dL 2-4 Albumin/Globulin Ratio 1.1 1-3 Total Bilirubin 0.6 mg/dL 0.4-1.5 Alkaline Phosphatase 88 U/L 30-110 Alt 120 U/L High 14-54 Ast 111 U/L High 12-42 Egfr Non- 72.4 >60 Egfr 93.2 >60 54 Laboratory 11/15/2013 [facility] [place] (Anti-Nuclear Negative Negative test finding [address] AB) [place] [address] [phone] Laboratory 10/27/2013 [facility] TSH (Thyroid 0.95 miu/mL 0.34-5.60 test finding [address] Stimulating Horm) [place] [address] [phone] Hemoglobin A1c 6.7 % High Less than 6.0 55 Comp Metabolic Panel 04/25/2013 [facility] Sodium 138 mmol/L 133-[address] [place] [address] [phone] Potassium 4.6 mmol/L 3.5-5.0 Chloride 104 mmol/L 101-111 Co2 Carbon Dioxide 27.0 mmol/L 22-32 Anion Gap 7.0 mmol/L 2-11 Glucose 122 mg/dL High 70-100 Blood Urea Nitrogen 11 mg/dL 6-24 Creatinine 0.80 mg/dL 0.50-1.40 BUN/Creatinine Ratio 13.8 8-20 Calcium 9.7 mg/dL 8.1-9.9 Total Protein 6.7 g/dL 6.2-8.1 Albumin 3.6 g/dL 3.2-5.2 Globulin 3.1 g/dL 2-4 Albumin/Globulin Ratio 1.2 1-3 Total Bilirubin 0.5 mg/dL 0.4-1.5 Alkaline Phosphatase 65 U/L 30-110 Alt 71 U/L High 14-54 Ast 66 U/L High 12-42 Egfr Non- 72.7 >60 Egfr 93.5 >60 56 Lipid Profile 04/25/2013 [facility] Triglycerides 137 mg/dL 40-200 (Trig/Chol/HDL) [address] [place] [address] [phone] Cholesterol 124 mg/dL Less than 200 HDL Cholesterol 48 mg/dL 40-60 57 Cholesterol/HDL Ratio 2.6 Average 1-4.44 LDL Cholesterol 48.6 Less Than 100 58 Urine Microalbumin 04/25/2013 [facility] Ur Microalbumin 4.0 mg/ L [address] (mg/L) [place] [address] [phone] Urine Creatinine 69.9 mg/dL Urine Microalbumin/Creatinine 5.7 Less Than 31 Laboratory test 04/25/2013 [facility] Hemoglobin A1c 6.6 % High Less than [address] 6[address]0 [place] [address] [phone] Laboratory test 12/17/2012 [facility] Hemoglobin A1c 6.4 5-7 finding Liver Function 10/14/2012 [facility] Total Protein 7.1 g/dL 6.2-8.[address] [place] [address] [phone] Albumin 3.9 g/dL 3.2-5.2 Globulin 3.2 g/dL 2-4 Albumin/Globulin Ratio 1.2 1-3 Total Bilirubin 0.5 mg/dL 0.4-1.5 Direct Bilirubin 0.1 mg/dL 0.1-0.5 Indirect Bilirubin 0.4 mg/dL 0.3-1.0 Alkaline Phosphatase 78 U/L 30-110 Alt 75 U/L High 14-54 Ast 69 U/L High 12-42 Laboratory test 10/14/2012 [facility] TSH (Thyroid 1.45 0.34- 5.[address] Stimulating MIU/ML [place] [phone] Horm) [phone] Cytology 10/14/2012 [facility] Racheal RUN DATE: 61 Non-Fibrous Plasterer [address] [place] [address] <SEE NOTE> [phone] Comp Metabolic 09/09/2012 [facility] Sodium 138 mmol/L 133- [address] [place], [place] [id number] [phone] Potassium 4.4 mmol/L 3.5-5.0 Chloride 103 mmol/L 101-111 Co2 Carbon Dioxide 28.0 mmol/L 22-32 Anion Gap 7.0 mmol/L 2-11 Glucose 122 mg/dL High 70-100 Blood Urea Nitrogen 14 mg/dL 6-24 Creatinine 0.80 mg/dL 0.50-1.40 BUN/Creatinine Ratio 17.5 8-20 Calcium 9.7 mg/dL 8.1-9.9 Total Protein 7.3 GM/DL 6.2-8.1 Albumin 3.7 GM/DL 3.2-5.2 Globulin 3.6 GM/DL 2-4 Albumin/Globulin Ratio 1.0 1-3 Total Bilirubin 0.6 mg/dL 0.1-1.0 62 Alkaline Phosphatase 64 U/L 30-110 Alt 68 U/L High 14-54 Ast 64 U/L High 12-42 Egfr Non- 72.9 >60 Egfr 93.8 >60 63 Laboratory test 09/09/2012 [facility] Hemoglobin A1c 6.8 % High Less [address] than 6.0 [place] [address] [phone] Urine 03/08/2012 [facility] Microalbumin 7.[address] (MG/L) mg/[place] [address] [phone] Urine Creatinine 124.7 mg/dL Yogesh Alb/Creatinine Ratio 5.6 UG/MG Less Than 30 65 Comp Metabolic Panel 03/08/2012 [facility] Sodium 137 mmol/L 135-[address] [place] [address] [phone] Potassium 4.4 mmol/L 3.5-5.0 Chloride 105 mmol/L 101-111 Co2 (Carbon Dioxide) 28.0 mmol/L 22-32 Anion Gap 4.0 mmol/L 2-11 66 Glucose 114 mg/dL High 70-100 BUN 11 mg/dL 6-24 Creatinine 0.8 mg/dL 0.50-1.40 One Over Creatinine 1.25 BUN/Creatinine Ratio 13.8 8-20 Calcium 9.2 mg/dL 8.1-9.9 Total Protein 6.6 GM/DL 6.2-8.1 Albumin 3.6 GM/DL 3.2-5.2 Globulin 3.0 GM/DL 2-4 Albumin/Globulin Ratio 1.2 1-3 Bilirubin Total 0.5 mg/dL 0.4-1.5 67 Alkaline Phosphatase 68 U/L 30-110 Alt (SGPT) 56 U/L High 14-54 Ast (Sgot) 46 U/L High 12-42 eGFR Non- 72.9 > 60 eGFR 93.8 > 60 68 Lipid Profile 03/08/2012 [facility] Triglyceride 124 mg/dL 40 -200 (Trig/Chol/HDL) [address] [place] [address] [phone] Cholesterol 129 mg/dL Less Than 200 69 High Density Lipoprotein 50 mg/dL 40-60 70 Cholesterol/HDL Ratio 2.58 AVERAGE 1-4.44 Low Density Lipoprotein 54 mg/dL Less Than 100 71 Laboratory 03/08/2012 [facility] Hemoglobin 6.4 % High Less Than 72 test finding [address] A1c 6.0 [place] [address] [phone] Laboratory 01/17/2012 [facility] Hepatitis A Positive Negative 73 test finding 101 [facility] [place] [address] Total [phone] Hepatitis B Surface Ag Nonreactive Nonreactive Hepatitis B Core AB, Total Negative Negative 74 Hepatitis C Antibody Nonreactive Nonreactive Ferritin 123 NG/ML 11.0-307 Liver Function 01/17/2012 [facility] Total Protein 7.0 GM/DL 6.2-8.1 Panel 101 [place] [address] [phone] Albumin 3.6 GM/DL 3.2-5.2 Globulin 3.4 GM/DL 2-4 Albumin/Globulin Ratio 1.1 1-3 Bilirubin Total 0.5 mg/dL 0.4-1.5 75 Bilirubin Direct 0.1 mg/dL 0.1-0.5 Indirect Bilirubin 0.4 mg/dL 0.3-1.0 76 Alkaline Phosphatase 61 U/L 30-110 Alt (SGPT) 52 U/L 14-54 Ast (Sgot) 52 U/L High 12-42 Liver Function 12/13/2011 [facility] Total Protein 6.9 GM/DL 6.2-8.1 Panel [address] [place] [address] [phone] Albumin 3.7 GM/DL 3.2-5.2 Globulin 3.2 GM/DL 2-4 Albumin/Globulin Ratio 1.2 1-3 Bilirubin Total 0.7 mg/dL 0.4-1.5 77 Bilirubin Direct 0.1 mg/dL 0.1-0.5 Indirect Bilirubin 0.6 mg/dL 0.3-1.0 78 Alkaline Phosphatase 59 U/L 30-110 Alt (SGPT) 55 U/L High 14-54 Ast (Sgot) 46 U/L High 12-42 CMP Panel 11/10/2011 [facility] Sodium 139 mmol/L 135-145 [address] [place] [address] [phone] Potassium 4.3 mmol/L 3.5-5.0 Chloride 102 mmol/L 101-111 Co2 (Carbon Dioxide) 29.0 mmol/L 22-32 Anion Gap 8.0 mmol/L 2-11 79 Glucose 100 mg/dL 70-100 BUN 11 mg/dL 6-24 Creatinine 0.8 mg/dL 0.50-1.40 One Over Creatinine 1.25 BUN/Creatinine Ratio 13.8 8-20 Calcium 9.5 mg/dL 8.1-9.9 Total Protein 7.0 GM/DL 6.2-8.1 Albumin 3.8 GM/DL 3.2-5.2 Globulin 3.2 GM/DL 2-4 Albumin/Globulin Ratio 1.2 1-3 Bilirubin Total 0.6 mg/dL 0.4-1.5 80 Alkaline Phosphatase 60 U/L 30-110 Alt (SGPT) 58 U/L High 14-54 Ast (Sgot) 46 U/L High 12-42 eGFR Non- 72.9 > 60 eGFR 93.8 > 60 81 Laboratory test 11/10/2011 [facility] Hemoglobin A1c 6.6 % High Less Than [address] 6[address] [place] [address] [phone] Urine Culture & 10/04/2011 [facility] M -------- [address] -------- [place] [address] <SEE [phone] NOTE> Laboratory test 06/12/2011 [facility] TSH 1.15 0.34-5.[address] MIU/[place] [address] [phone] Lipid Profile 05/31/2011 [facility] Triglyceride 95 mg/dL 40- 200 (Trig/Chol/HDL) [address] [place] [address] [phone] Cholesterol 107 mg/dL Less Than 200 84 High Density Lipoprotein 41 mg/dL 40-60 85 Cholesterol/HDL Ratio 2.61 AVERAGE 1-4.44 Low Density Lipoprotein 47 mg/dL Less Than 100 86 Urine Microalbumin 05/31/2011 [facility] Microalbumin (MG/L) 8.0 mg/L Random [address] [place] [address] [phone] Urine Creatinine 91.30 mg/dL Yogesh Alb/Creatinine Ratio 8.7 UG/MG Less Than 30 87 Laboratory test 05/31/2011 [facility] Hemoglobin A1c 6.8 % High Less Than [address] 6[address] [place] [address] [phone] Laboratory test 02/28/2011 [facility] TSH 1.07 0.34-5.[address] MIU/[place] [address] [phone] Hemoglobin A1c 7.0 % High Less Than 6.0 89 Lipid Profile 09/06/2010 [facility] Triglyceride 178 mg/dL 40 -200 (Trig/Chol/HDL) [address] [place] [address] [phone] Cholesterol 127 mg/dL Less Than 200 90 High Density Lipoprotein 41 mg/dL 40-60 91 Cholesterol/HDL Ratio 3.10 AVERAGE 1-4.44 Low Density Lipoprotein 50 mg/dL Less Than 100 92 Comp Metabolic Panel 09/06/2010 [facility] Sodium 134 mmol/L Low 135-[address] [place] [address] [phone] Potassium 4.6 mmol/L 3.5-5.0 Chloride 101 mmol/L 101-111 Co2 (Carbon Dioxide) 27.0 mmol/L 22-32 Anion Gap 6.0 mmol/L 2-11 93 Glucose 107 mg/dL High 70-100 94 BUN 12 mg/dL 6-24 Creatinine 0.90 mg/dL 0.50-1.40 One Over Creatinine 1.10 BUN/Creatinine Ratio 13.3 8-20 Calcium 9.0 mg/dL 8.1-9.9 Total Protein 6.7 GM/DL 6.2-8.1 Albumin 3.7 GM/DL 3.6-5.4 Globulin 3.0 GM/DL 2-4 Albumin/Globulin Ratio 1.2 1-3 Bilirubin Total 0.5 mg/dL 0.4-1.5 95 Alkaline Phosphatase 60 U/L 30-110 Alt (SGPT) 46 U/L 14-54 Ast (Sgot) 38 U/L 12-42 eGFR Non- 68.1 > 60 eGFR 82.4 > 60 96 Urine Microalbumin 09/06/2010 [facility] Microalbumin (MG/L) 3.0 mg/L Random [address] [place] [address] [phone] Urine Creatinine 77.37 mg/dL Yogesh Alb/Creatinine Ratio 3.8 UG/MG Less Than 30 97 Laboratory test 09/06/2010 [facility] TSH 1.19 MIU/ML 0.34- 5.[address] [place] [address] [phone] Hemoglobin A1c 6.8 % High Less Than 6.0 98 1 Because ethnic data is not always readily available, this report includes an eGFR for both -Americans and non- Americans. The National Kidney Disease Education Program (NKDEP) does not endorse the use of the MDRD equation for patients that are not between the ages of 18 and 70, are , have extremes of body size, muscle mass, or nutritional status, or are non- or non-. According to the National Kidney Foundation, irrespective of diagnosis, the stage of the disease is based on the level of kidney function: Stage Description GFR(mL/min/1.73 m(2)) 1 Kidney damage with normal or decreased GFR 90 2 Kidney damage with mild decrease in GFR 60-89 3 Moderate decrease in GFR 30-59 4 Severe decrease in GFR 15-29 5 Kidney failure <15 (or dialysis) 2 SEE RESULT BELOW Name: MELISSA FUNES : [address]: Danica Stoddard MD Acct: [id number] Unit: [id number] AGE: 68 Location: [facility] Re11/04/18 SEX: F Status: REG REF SPEC: [id number] EWELINA: 11/04/18-[address]: Danica Stoddard MD REQ: [id number] RECD: 11/04/18 STATUS: COMP _ SOURCE: URINE SPDESC: ORDERED: Urine Culture QUERIES: Urine Source: Clean Catch Procedure Result Reported Site Urine Culture Final 11/05/18- 1224 ML No Growth (<1,000 CFU/mL) * ML - Main Lab . END OF REPORT DEPARTMENT OF PATHOLOGY, [address] [place] [address] Umesh Le M.D. Director [facility] # [id number] 3 Desirable: <150 Borderline High: 150-199 High: 200-499 Very High: >500 4 Desirable: <200 Borderline High: 200-239 High: >239 5 Low: <40 Desirable: 40-60 High: >60 6 Desirable: <100 Near Optimal: 100-129 Borderline High: 130-159 High: 160-189 Very High: >189 7 Because ethnic data is not always readily available, this report includes an eGFR for both -Americans and non- Americans. The National Kidney Disease Education Program (NKDEP) does not endorse the use of the MDRD equation for patients that are not between the ages of 18 and 70, are , have extremes of body size, muscle mass, or nutritional status, or are non- or non-. According to the National Kidney Foundation, irrespective of diagnosis, the stage of the disease is based on the level of kidney function: Stage Description GFR(mL/min/1.73 m(2)) 1 Kidney damage with normal or decreased GFR 90 2 Kidney damage with mild decrease in GFR 60-89 3 Moderate decrease in GFR 30-59 4 Severe decrease in GFR 15-29 5 Kidney failure <15 (or dialysis) 8 Therapeutic target for the treatment of diabetes mellitus patients is <7% HBA1C, and in selective patients <6.0%. Please refer to [place] [employer] diabetic care guidelines for further information. 9 Unable to calculate due to low microalbumin 10 Normal Range 180 to 914 Indeterminate Range 145 to 180 Deficient Range <145 11 Therapeutic target for the treatment of diabetes mellitus patients is <7% HBA1C, and in selective patients <6.0%. Please refer to [place] [employer] diabetic care guidelines for further information. 12 Because ethnic data is not always readily available, this report includes an eGFR for both -Americans and non- Americans. The National Kidney Disease Education Program (NKDEP) does not endorse the use of the MDRD equation for patients that are not between the ages of 18 and 70, are , have extremes of body size, muscle mass, or nutritional status, or are non- or non-. According to the National Kidney Foundation, irrespective of diagnosis, the stage of the disease is based on the level of kidney function: Stage Description GFR(mL/min/1.73 m(2)) 1 Kidney damage with normal or decreased GFR 90 2 Kidney damage with mild decrease in GFR 60-89 3 Moderate decrease in GFR 30-59 4 Severe decrease in GFR 15-29 5 Kidney failure <15 (or dialysis) 13 SEE RESULT BELOW Name: MELISSA FUNES : [address]: Opal Allen MD Acct: [id number] Unit: [id number] AGE: 67 Location: [place] Re02/19/18 SEX: F [place] [facility] [place]: [id number] EWELINA: 02/19/18-3 [facility] [address]: Opal Allen MD REQ: [id number] RECD: 02/19/18 STATUS: SOUT _ ORDERED: LEVEL 5 FINAL DIAGNOSIS Breast, left, terminal duct dissection and excision: -- Sclerosing Intraductal papillomas (3 foci, 3 mm largest), with associated microcalcifications. 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 -- No evidence of neoplasia or atypia identified. PRE-OPERATIVE DIAGNOSIS Left breast nipple discharge; usual markings with double stitch martinez the duct GROSS DESCRIPTION The specimen is received in formalin labeled, Left Breast Terminal Duct, Usual Markings, Double Stitch Martinez the Duct, and consists of a 4.3 x 4.2 x 2.5 cm yellow- pink ovoid portion of fibrofatty soft tissue with four attached sutures which are designated as follows: long-lateral, short-superior, medium-medial and double-duct. The duct is located on the mid superior anterior surface. There is a 0.3 x 0.2 x 0.2 cm probable cyst within the medial specimen which abuts the superior deep margin. Additionally, there is a discrete 0.3 x 0.3 x 0.2 cm landaverde-white indurated focus medial to the cyst, 0.1 cm from the inferior anterior margin. The remaining cut surface consists predominantly of yellow lobulated adipose tissue with a small amount of interspersed landaverde-pink fibrous tissue. The specimen is inked as follows: superior anterior-blue, inferior anterior-green, deep-black and duct -red, serially sectioned from lateral to medial and client relations representative sections are submitted in cassettes A through H to include duct in cassettes C through E, cyst in cassettes F and G and indurated focus in cassette H. Signed (signature on file) Umesh Le MD [address] END OF REPORT DEPARTMENT OF PATHOLOGY, [address] [place] [address] Umesh Le M.D. Director [facility] # [id number] Associate Dean Of Women: [id number] Therapeutic target for the treatment of diabetes mellitus patients is <7% HBA1C, and in selective patients <6.0%. Please refer to [place] [employer] diabetic care guidelines for further information. 16 Desirable <150 Borderline high 150-199 High 200-499 Very High >500 17 Desirable <200 Borderline high 200-239 High >239 18 Low <40 Desirable: 40-60 High: >60 19 Desirable: <100 mg/dL Near Optimal: 100-129 mg/dL Borderline High: 130-159 mg/dL High: 160-189 mg/dL Very High: >189 mg/dL 20 Because ethnic data is not always readily available, this report includes an eGFR for both -Americans and non- Americans. The National Kidney Disease Education Program (NKDEP) does not endorse the use of the MDRD equation for patients that are not between the ages of 18 and 70, are , have extremes of body size, muscle mass, or nutritional status, or are non- or non-. According to the National Kidney Foundation, irrespective of diagnosis, the stage of the disease is based on the level of kidney function: Stage Description GFR(mL/min/1.73 m(2)) 1 Kidney damage with normal or decreased GFR 90 2 Kidney damage with mild decrease in GFR 60-89 3 Moderate decrease in GFR 30-59 4 Severe decrease in GFR 15-29 5 Kidney failure <15 (or dialysis) 21 Therapeutic target for the treatment of diabetes Mellitus patients is <7% HBA1C, and in selective patients <6.0%.Please refer to [place] [employer] Diabetic care guidelines for further information. 22 Unable to calculate due to low microalbumin 23 Desirable <150 Borderline high 150-199 High 200-499 Very High >500 24 Desirable <200 Borderline high 200-239 High >239 25 Low <40 Desirable: 40-60 High: >60 26 Desirable: <100 mg/dL Near Optimal: 100-129 mg/dL Borderline High: 130-159 mg/dL High: 160-189 mg/dL Very High: >189 mg/dL 27 Because ethnic data is not always readily available, this report includes an eGFR for both -Americans and non- Americans. The National Kidney Disease Education Program (NKDEP) does not endorse the use of the MDRD equation for patients that are not between the ages of 18 and 70, are , have extremes of body size, muscle mass, or nutritional status, or are non- or non-. According to the National Kidney Foundation, irrespective of diagnosis, the stage of the disease is based on the level of kidney function: Stage Description GFR(mL/min/1.73 m(2)) 1 Kidney damage with normal or decreased GFR 90 2 Kidney damage with mild decrease in GFR 60-89 3 Moderate decrease in GFR 30-59 4 Severe decrease in GFR 15-29 5 Kidney failure <15 (or dialysis) 28 Therapeutic target for the treatment of diabetes Mellitus patients is <7% HBA1C, and in selective patients <6.0%.Please refer to [place] [employer] Diabetic care guidelines for further information. 29 Because ethnic data is not always readily available, this report includes an eGFR for both -Americans and non- Americans. The National Kidney Disease Education Program (NKDEP) does not endorse the use of the MDRD equation for patients that are not between the ages of 18 and 70, are , have extremes of body size, muscle mass, or nutritional status, or are non- or non-. According to the National Kidney Foundation, irrespective of diagnosis, the stage of the disease is based on the level of kidney function: Stage Description GFR(mL/min/1.73 m(2)) 1 Kidney damage with normal or decreased GFR 90 2 Kidney damage with mild decrease in GFR 60-89 3 Moderate decrease in GFR 30-59 4 Severe decrease in GFR 15-29 5 Kidney failure <15 (or dialysis) 30 Therapeutic target for the treatment of diabetes Mellitus patients is <7% HBA1C, and in selective patients <6.0%.Please refer to [place] [employer] Diabetic care guidelines for further information. 31 PT IS FASTING 32 Unable to calculate due to low microalbumin 33 Because ethnic data is not always readily available, this report includes an eGFR for both -Americans and non- Americans. The National Kidney Disease Education Program (NKDEP) does not endorse the use of the MDRD equation for patients that are not between the ages of 18 and 70, are , have extremes of body size, muscle mass, or nutritional status, or are non- or non-. According to the National Kidney Foundation, irrespective of diagnosis, the stage of the disease is based on the level of kidney function: Stage Description GFR(mL/min/1.73 m(2)) 1 Kidney damage with normal or decreased GFR 90 2 Kidney damage with mild decrease in GFR 60-89 3 Moderate decrease in GFR 30-59 4 Severe decrease in GFR 15-29 5 Kidney failure <15 (or dialysis) 34 Desirable <150 Borderline high 150-199 High 200-499 Very High >500 35 Desirable <200 Borderline high 200-239 High >239 36 Low <40 Desirable: 40-60 High: >60 37 Desirable: <100 mg/dL Near Optimal: 100-129 mg/dL Borderline High: 130-159 mg/dL High: 160-189 mg/dL Very High: >189 mg/dL 38 PT IS FASTING 39 Therapeutic target for the treatment of diabetes Mellitus patients is <7% HBA1C, and in selective patients <6.0%.Please refer to [place] [employer] Diabetic care guidelines for further information. 40 FASTING 41 Because ethnic data is not always readily available, this report includes an eGFR for both -Americans and non- Americans. The National Kidney Disease Education Program (NKDEP) does not endorse the use of the MDRD equation for patients that are not between the ages of 18 and 70, are , have extremes of body size, muscle mass, or nutritional status, or are non- or non-. According to the National Kidney Foundation, irrespective of diagnosis, the stage of the disease is based on the level of kidney function: Stage Description GFR(mL/min/1.73 m(2)) 1 Kidney damage with normal or decreased GFR 90 2 Kidney damage with mild decrease in GFR 60-89 3 Moderate decrease in GFR 30-59 4 Severe decrease in GFR 15-29 5 Kidney failure <15 (or dialysis) 42 Therapeutic target for the treatment of diabetes Mellitus patients is <7% HBA1C, and in selective patients <6.0%.Please refer to [place] [employer] Diabetic care guidelines for further information. 43 --- 09/24/14 0731 --- Hemoglobin A1c previously reported as: 9.7 H % Corrected result! Wrong result was 9.7 . Therapeutic target for the treatment of diabetes Mellitus patients is <7% HBA1C, and in selective patients <6.0%.Please refer to [place] [employer] Diabetic care guidelines for further information. 44 Potassium reference range changed effective 09/10/14 45 Because ethnic data is not always readily available, this report includes an eGFR for both -Americans and non- Americans. The National Kidney Disease Education Program (NKDEP) does not endorse the use of the MDRD equation for patients that are not between the ages of 18 and 70, are , have extremes of body size, muscle mass, or nutritional status, or are non- or non-. According to the National Kidney Foundation, irrespective of diagnosis, the stage of the disease is based on the level of kidney function: Stage Description GFR(mL/min/1.73 m(2)) 1 Kidney damage with normal or decreased GFR 90 2 Kidney damage with mild decrease in GFR 60-89 3 Moderate decrease in GFR 30-59 4 Severe decrease in GFR 15-29 5 Kidney failure <15 (or dialysis) 46 Therapeutic target for the treatment of diabetes Mellitus patients is <7% HBA1C, and in selective patients <6.0%.Please refer to [place] [employer] Diabetic care guidelines for further information. 47 Because ethnic data is not always readily available, this report includes an eGFR for both -Americans and non- Americans. The National Kidney Disease Education Program (NKDEP) does not endorse the use of the MDRD equation for patients that are not between the ages of 18 and 70, are , have extremes of body size, muscle mass, or nutritional status, or are non- or non-. According to the National Kidney Foundation, irrespective of diagnosis, the stage of the disease is based on the level of kidney function: Stage Description GFR(mL/min/1.73 m(2)) 1 Kidney damage with normal or decreased GFR 90 2 Kidney damage with mild decrease in GFR 60-89 3 Moderate decrease in GFR 30-59 4 Severe decrease in GFR 15-29 5 Kidney failure <15 (or dialysis) 48 Desirable <150 Borderline high 150-199 High 200-499 Very High >500 49 Desirable <200 Borderline high 200-239 High >239 50 Low <40 Desirable: 40-60 High: >60 51 Desirable <100 Near Optimal 100-129 Borderline high 130-159 High 160-189 Very High >189 52 Microalbuminuria in a random sample is defined as: Microalbumin/Creatinine ratio of 30-299 ug/mg. 53 Therapeutic target for the treatment of diabetes Mellitus patients is <7% HBA1C, and in selective patients <6.0%.Please refer to [place] [employer] Diabetic care guidelines for further information. 54 Because ethnic data is not always readily available, this report includes an eGFR for both -Americans and non- Americans. The National Kidney Disease Education Program (NKDEP) does not endorse the use of the MDRD equation for patients that are not between the ages of 18 and 70, are , have extremes of body size, muscle mass, or nutritional status, or are non- or non-. According to the National Kidney Foundation, irrespective of diagnosis, the stage of the disease is based on the level of kidney function: Stage Description GFR(mL/min/1.73 m(2)) 1 Kidney damage with normal or decreased GFR 90 2 Kidney damage with mild decrease in GFR 60-89 3 Moderate decrease in GFR 30-59 4 Severe decrease in GFR 15-29 5 Kidney failure <15 (or dialysis) 55 Therapeutic target for the treatment of diabetes Mellitus patients is <7% HBA1C, and in selective patients <6.0%.Please refer to [place] [employer] Diabetic care guidelines for further information. 56 Because ethnic data is not always readily available, this report includes an eGFR for both -Americans and non- Americans. The National Kidney Disease Education Program (NKDEP) does not endorse the use of the MDRD equation for patients that are not between the ages of 18 and 70, are , have extremes of body size, muscle mass, or nutritional status, or are non- or non-. According to the National Kidney Foundation, irrespective of diagnosis, the stage of the disease is based on the level of kidney function: Stage Description GFR(mL/min/1.73 m(2)) 1 Kidney damage with normal or decreased GFR 90 2 Kidney damage with mild decrease in GFR 60-89 3 Moderate decrease in GFR 30-59 4 Severe decrease in GFR 15-29 5 Kidney failure <15 (or dialysis) 57 HDL Interpretation: Undesirable: High Risk: Less than 40 mg/dL Desirable: Low Risk: Greater than 60 mg/dL 58 LDL Interpretation: Low Risk Optimal Level: LDL Less than 100 mg/dL Near or Above Optimal: LDL 100-129 mg/dL Borderline High Risk: LDL 130-159 mg/dL High Risk: LDL 160-189 mg/dL Very High Risk: LDL Greater than 189 mg/dL 59 Microalbuminuria in a random sample is defined as: Microalbumin/Creatinine ratio of 30-299 ug/mg. 60 Therapeutic target for the treatment of diabetes Mellitus patients is <7% HBA1C, and in selective patients <6.0%.Please refer to [place] [employer] Diabetic care guidelines for further information. 61 RUN DATE: 10/14/12 [facility] LAB LIVE PAGE 1 RUN TIME: [address] [place] [address] Specimen Inquiry Name: MELISSA FUNES : [address]: Rocky Wolfe MD Acct: [id number] Unit: [id number] AGE: 61 Location: THYROID Re10/14/12 SEX: F Status: REG REF SPEC: [id number] EWELINA: 10/14/12- DR: Serge Meza MD REQ: [id number] RECD: 10/14/12 STATUS: UVALDO CHILD DR: Rocky Wolfe MD ENTERED: 10/14/12 SP TYPE: RACHEAL Desouza MD, Zoraida Fitch _ ORDERED: FN ASP DEEP, FNA [facility], LEVEL IV, FNA IMMEDIATE S FINAL DIAGNOSIS THYROID, RIGHT, US guided, fine needle aspiration: Benign thyroid nodule: Hyperplastic type (see comment) COMMENTS: The specimen demonstrates abundant watery colloid, a moderate amount of benign appearing follicular epithelium arranged in uniform sheets, medium sized follicles and only occasional small groups. No features of papillary carcinoma are seen. Cystic degenerative changes are seen. In this clinical setting the risk of malignancy is less than 3%. Clinical management of this thyroid nodule should be based on clinical and radiographic features as well as the above. A cell block was prepared in the evaluation of this specimen. Smears and cell block reveal similar findings. 1. THYROID - RIGHT, FINE NEEDLE ASPIRATION CONTINUED ON NEXT PAGE * ML=Testing performed at Main Lab DEPARTMENT OF PATHOLOGY, [address] [place] [address] Umesh Le M.D. Director [facility] Permit #[id number] RUN DATE: 10/14/12 [facility] LAB LIVE PAGE 2 RUN TIME: [address] [place] [address] Specimen Inquiry Patient: MELISSA FUNES [id number] (Continued) CLINICAL HISTORY (Continued) CLINICAL HISTORY 1.5 cm nodule right mid pole thyroid IMMEDIATE INTERPRETATION THYROID, RIGHT, US guided, fine needle aspiration, PASS 1- INADEQUATE PASS 2-ADEQUATE PRE-OPERATIVE DIAGNOSIS GROSS DESCRIPTION US guided, fine needle aspiration 6- alcohol fixed slide(s) and 1 air dried slide 2 - passes Needle rinse in Cytolyt solution for cell block. Signed (signature on file) Umesh Le MD 1045 END OF REPORT * ML=Testing performed at Main Lab DEPARTMENT OF PATHOLOGY, [address] [place] [address] Umesh Le M.D. Director [facility] Permit #[id number] 62 A metabolite of Naproxen, O-desmethylnaproxen, has been shown to interfere with the Jendrassik-Carlos method for measuring total bilirubin. Samples from patients who have taken Naproxen have shown spurious elevation in total bilirubin levels. 63 Because ethnic data is not always readily available, this report includes an eGFR for both -Americans and non- Americans. The National Kidney Disease Education Program (NKDEP) does not endorse the use of the MDRD equation for patients that are not between the ages of 18 and 70, are , have extremes of body size, muscle mass, or nutritional status, or are non- or non-. According to the National Kidney Foundation, irrespective of diagnosis, the stage of the disease is based on the level of kidney function: Stage Description GFR(mL/min/1.73 m(2)) 1 Kidney damage with normal or decreased GFR 90 2 Kidney damage with mild decrease in GFR 60-89 3 Moderate decrease in GFR 30-59 4 Severe decrease in GFR 15-29 5 Kidney failure <15 (or dialysis) 64 Therapeutic target for the treatment of diabetes Mellitus patients is <7% HBA1C, and in selective patients <6.0%.Please refer to [place] [employer] Diabetic care guidelines for further information. 65 MICROALBUMINURIA IN A RANDOM SAMPLE IS DEFINED : MICROALBUMIN/CREATININE RATIO OF 30-299 ug/mg. . 66 Anion gap measurement may be of limited value in the presence of any alkalosis, especially in a combined acid base disorder. . 67 A metabolite of Naproxen, O-desmethylnaproxen, has been shown to interfere with the Jendrassik-Carlos method for measuring total bilirubin. Samples from patients who have taken Naproxen have shown spurious elevation in total bilirubin levels. 68 Because ethnic data is not always readily available, this report includes an eGFR for both -Americans and non- Americans. The National Kidney Disease Education Program (NKDEP) does not endorse the use of the MDRD equation for patients that are not between the ages of 18 and 70, are , have extremes of body size, muscle mass, or nutritional status, or are non- or non-. According to the National Kidney Foundation, irrespective of diagnosis, the stage of the disease is based on the level of kidney function: Stage Description GFR(mL/min/1.73 m(2)) 1 Kidney damage with normal or decreased GFR 90 2 Kidney damage with mild decrease in GFR 60-89 3 Moderate decrease in GFR 30-59 4 Severe decrease in GFR 15-29 5 Kidney failure <15 (or dialysis) 69 CHOLESTEROL INTERPRETATION: Desirable: Less than 200 MG/DL Borderline-High Risk: 200-239 MG/DL High-Risk: 240 MG/DL and over 70 HDL INTERPRETATION: Undesirable: High Risk: Less than 40 MG/DL Desirable: Low Risk: Greater than 60 MG/DL 71 LDL INTERPRETATION: Low Risk Optimal Level: LDL Less than 100 MG/DL Near or Above Optimal: LDL 100-129 MG/DL Borderline High Risk: LDL 130-159 MG/DL High Risk: LDL 160-189 MG/DL Very High Risk: LDL Greater than 189 MG/DL 72 THERAPEUTIC TARGET FOR THE TREATMENT OF DIABETES MELLITUS PATIENTS IS <7% HBA1C, AND IN SELECTIVE PATIENTS <6.0%. PLEASE REFER TO [employer] [employer] DIABETIC CARE GUIDELINES FOR FURTHER INFORMATION. 73 Test Performed by: [facility] Dpt of Lab Med and Pathology [address] [place] [address] Crew Clerk: Davey Valdivia III, M.D. 74 Test Performed by: [facility] Dpt of Lab Med and Pathology [address] [place] [address] Crew Clerk: Davey Valdivia III, M.D. 75 A metabolite of Naproxen, O-desmethylnaproxen, has been shown to interfere with the Jendrassik-Carlos method for measuring total bilirubin. Samples from patients who have taken Naproxen have shown spurious elevation in total bilirubin levels. 76 Please note updated reference range, effective 05/30/10 77 A metabolite of Naproxen, O-desmethylnaproxen, has been shown to interfere with the Jendrassik-Excello method for measuring total bilirubin. Samples from patients who have taken Naproxen have shown spurious elevation in total bilirubin levels. 78 Please note updated reference range, effective 05/30/10 79 Anion gap measurement may be of limited value in the presence of any alkalosis, especially in a combined acid base disorder. . 80 A metabolite of Naproxen, O-desmethylnaproxen, has been shown to interfere with the Jendrassik-Carlos method for measuring total bilirubin. Samples from patients who have taken Naproxen have shown spurious elevation in total bilirubin levels. 81 Because ethnic data is not always readily available, this report includes an eGFR for both -Americans and non- Americans. The National Kidney Disease Education Program (NKDEP) does not endorse the use of the MDRD equation for patients that are not between the ages of 18 and 70, are , have extremes of body size, muscle mass, or nutritional status, or are non- or non-. According to the National Kidney Foundation, irrespective of diagnosis, the stage of the disease is based on the level of kidney function: Stage Description GFR(mL/min/1.73 m(2)) 1 Kidney damage with normal or decreased GFR 90 2 Kidney damage with mild decrease in GFR 60-89 3 Moderate decrease in GFR 30-59 4 Severe decrease in GFR 15-29 5 Kidney failure <15 (or dialysis) 82 THERAPEUTIC TARGET FOR THE TREATMENT OF DIABETES MELLITUS PATIENTS IS <7% HBA1C, AND IN SELECTIVE PATIENTS <6.0%. PLEASE REFER TO [employer] [employer] DIABETIC CARE GUIDELINES FOR FURTHER INFORMATION. 83 RUN DATE: 10/06/11 [facility] NMI LIVE PAGE 1 RUN TIME: 1032 Specimen Inquiry RUN USER: INTERFACE Name: MELISSA FUNES Status: DEP CLI Re10/04/11 Age/Sex: 60/F Unit#: [id number] Location: [facility]. : 50 SPEC #: [id number] EWELINA: 10/04/11 STATUS: COMP REQ #: [id number] RECD: 10/04/11 [facility] DR: Angel STRANGEGregoria SOURCE: URINE ENTR: 10/04/[address]: Deo STRANGE, Padma Fitch SPDC: ORDERED: URINE C S QUERIES: SPECIMEN DESCRIPTION: URINE, CLEAN CATCH Procedure Result Verified Site > URINE CULTURE SENSITIVI Final 10/06/11- 1032 ML Organism 1 PROTEUS MIRABILIS/PENNERI COLONY COUNT >100,000 ORGANISMS/ML (MANY) 1. PROTEUS MIRABILIS/PENNERI RX M.I.C. ------ --------- AMIKACIN S <=2 LEVOFLOXACIN S <=0.12 AMPICILLIN S <=2 CEFAZOLIN S <=4 CEFTRIAXONE S <=1 CIPROFLOXACIN S <=0.25 GENTAMICIN S <=1 CEFTAZIDIME S <=1 NITROFURANTOIN R 128 TRIMETH-SULFA S <=20 *These antibiotics are not available in the [facility] Formulary. Contact the Microbiology Department for any additional antibiotic reporting. ML - [facility] Permit #[id number] [address] [place] [address] DEPARTMENT OF PATHOLOGY, [address] [place] [address] [facility] Permit #[id number] Leticia Gomez M.D. Educational Manager 84 CHOLESTEROL INTERPRETATION: Desirable: Less than 200 MG/DL Borderline-High Risk: 200-239 MG/DL High-Risk: 240 MG/DL and over 85 HDL INTERPRETATION: Undesirable: High Risk: Less than 40 MG/DL Desirable: Low Risk: Greater than 60 MG/DL 86 LDL INTERPRETATION: Low Risk Optimal Level: LDL Less than 100 MG/DL Near or Above Optimal: LDL 100-129 MG/DL Borderline High Risk: LDL 130-159 MG/DL High Risk: LDL 160-189 MG/DL Very High Risk: LDL Greater than 189 MG/DL 87 MICROALBUMINURIA IN A RANDOM SAMPLE IS DEFINED : MICROALBUMIN/CREATININE RATIO OF 30-299 ug/mg. . 88 THERAPEUTIC TARGET FOR THE TREATMENT OF DIABETES MELLITUS PATIENTS IS <7% HBA1C, AND IN SELECTIVE PATIENTS <6.0%. PLEASE REFER TO [place] [employer] DIABETIC CARE GUIDELINES FOR FURTHER INFORMATION. 89 THERAPEUTIC TARGET FOR THE TREATMENT OF DIABETES MELLITUS PATIENTS IS <7% HBA1C, AND IN SELECTIVE PATIENTS <6.0%. PLEASE REFER TO [place] [employer] DIABETIC CARE GUIDELINES FOR FURTHER INFORMATION. 90 CHOLESTEROL INTERPRETATION: Desirable: Less than 200 MG/DL Borderline-High Risk: 200-239 MG/DL High-Risk: 240 MG/DL and over 91 HDL INTERPRETATION: Undesirable: High Risk: Less than 40 MG/DL Desirable: Low Risk: Greater than 60 MG/DL 92 LDL INTERPRETATION: Low Risk Optimal Level: LDL Less than 100 MG/DL Near or Above Optimal: LDL 100-129 MG/DL Borderline High Risk: LDL 130-159 MG/DL High Risk: LDL 160-189 MG/DL Very High Risk: LDL Greater than 189 MG/DL 93 Anion gap measurement may be of limited value in the presence of any alkalosis, especially in a combined acid base disorder. . 94 Note change in reference range as of 06/29/08. The change was based on recommendations from the [place] [employer]. 95 A metabolite of Naproxen, O-desmethylnaproxen, has been shown to interfere with the Jendrassik-Carlos method for measuring total bilirubin. Samples from patients who have taken Naproxen have shown spurious elevation in total bilirubin levels. 96 Because ethnic data is not always readily available, this report includes an eGFR for both -Americans and non- Americans. The National Kidney Disease Education Program (NKDEP) does not endorse the use of the MDRD equation for patients that are not between the ages of 18 and 70, are , have extremes of body size, muscle mass, or nutritional status, or are non- or non-. According to the National Kidney Foundation, irrespective of diagnosis, the stage of the disease is based on the level of kidney function: Stage Description GFR(mL/min/1.73 m(2)) 1 Kidney damage with normal or decreased GFR 90 2 Kidney damage with mild decrease in GFR 60-89 3 Moderate decrease in GFR 30-59 4 Severe decrease in GFR 15-29 5 Kidney failure <15 (or dialysis) 97 MICROALBUMINURIA IN A RANDOM SAMPLE IS DEFINED : MICROALBUMIN/CREATININE RATIO OF 30-299 ug/mg. . 98 THERAPEUTIC TARGET FOR THE TREATMENT OF DIABETES MELLITUS PATIENTS IS <7% HBA1C, AND IN SELECTIVE PATIENTS <6.0%. PLEASE REFER TO [employer] [employer] DIABETIC CARE GUIDELINES FOR FURTHER INFORMATION. Procedures Date Code Description Status 10/31/2018 30893 Sleep Study Unattended,HRT Rate,Oxygen Sat,Resp Completed Effort/Airflow 10/21/2018 28584 EKG Tracing & Interpretation Completed 06/30/2018 81372 Inject/Drain Joint/Bursa Major W/O US Completed 05/11/2018 [id number] Diabetic Retinal Eye Exam Completed 03/24/2018 23492 Inject/Drain Joint/Bursa Major W/O US Completed 02/19/2018 81681 Nipple Exploration Completed 12/11/2017 [id number] Mammogram Completed 10/16/2017 [id number] Diabetic Retinal Eye Exam Completed 04/14/2017 [id number] Diabetic Retinal Eye Exam Completed 10/31/2016 [id number] Mammogram Completed 10/09/2016 [id number] Diabetic Retinal Eye Exam Completed 06/11/2016 [id number] Bone Mineral Density Test Completed 2015 [id number] Mammogram Completed 09/20/2015 [id number] Diabetic Retinal Eye Exam Completed 09/19/2014 [id number] Diabetic Retinal Eye Exam Completed 08/31/2014 [id number] Mammogram Completed 09/30/2013 [id number] Diabetic Retinal Eye Exam Completed 07/14/2013 [id number] Mammogram Completed 09/10/2012 [id number] Diabetic Retinal Eye Exam Completed 05/18/2012 49978 EKG Tracing & Interpretation Completed 03/30/2012 [id number] Mammogram Completed 06/19/2011 17808 Holter Monitor Completed 06/12/2011 20215 EKG Tracing & Interpretation Completed 03/20/2011 [id number] Colonoscopy Completed 11/05/2010 [id number] Mammogram Completed 11/05/2010 [id number] Bone Mineral Density Test Completed 06/15/2009 82050 EKG Tracing & Interpretation Completed 06/07/2008 13470 EKG Tracing & Interpretation Completed 01/31/2008 62209 EKG, Interpretation Only Completed 01/31/2008 59516 EKG, Interpretation Only Completed 01/25/2007 [id number] EKG Tracing & Interpretation Completed 12/03/2005 [id number] Mammogram Completed Encounters Type Date Location Provider Dx Diagnosis Office Visit 10/21/2018 [facility] [place] Z01.818 Encounter for other 10:20a Douglas Desouza M.D. preprocedural [place] examination E11.9 Type 2 diabetes mellitus without complications I10 Essential (primary) hypertension G47.33 Obstructive sleep apnea (adult) (pediatric) M17.12 Unilateral primary osteoarthritis, left knee Office Visit 05/31/2018 [facility] M17.12 Unilateral primary 9:00a [facility] osteoarthritis, left [facility] knee M25.562 Pain in left knee M25.462 Effusion, left knee Office Visit 03/02/2018 9:00a [facility] Saida Rouse E11.9 Type 2 diabetes Douglas Desouza M.D. mellitus without [place] complications R74.0 Nonspec elev of levels of transamns & lactic acid dehydrgnse M25.562 Pain in left knee I10 Essential (primary) hypertension E78.5 Hyperlipidemia, unspecified Office Visit 02/02/2018 10:15a [facility] Opal Ruperto N64.52 Nipple discharge [facility] MD Office Visit 12/21/2017 8:00a [facility] Danicakayleen Stoddard M17.12 Unilateral [facility] primary [facility] osteoarthritis, left knee M25.562 Pain in left knee M25.462 Effusion, left knee Office Visit 11/27/2017 8:40a [facility] Saida Rouse I10 Essential ( primary) Douglas Desouza M.D. hypertension [place] N64.52 Nipple discharge E11.9 Type 2 diabetes mellitus without complications M25.562 Pain in left knee Office Visit 10/08/2017 8:00a [facility] Araceli Wolf MD R05 Cough [facility] R06.83 Snoring R06.00 Dyspnea, unspecified R53.83 Other fatigue Office Visit 09/24/2017 10:20a [facility] [place] E11.9 Type 2 diabetes Douglas Desouza M.D. mellitus without [place] complications I10 Essential (primary) hypertension F32.89 Other specified depressive episodes Office Visit 07/17/2017 8:40a [facility] Internal Nadiya Nguyen, F32.9 Major depressive Medicine - N.P. disorder, single [place] episode, unspecified R05 Cough Z23 Encounter for immunization Office Visit 06/16/2017 11:40a [facility] Internal Nadiya Nguyen, J06.9 Acute upper Medicine - N.P. respiratory [place] infection, unspecified F32.9 Major depressive disorder, single episode, unspecified Office Visit 10/06/2016 8:40a [facility] Internal [place] E11.9 Type 2 diabetes Douglas Desouza M.D. mellitus without [place] complications I10 Essential (primary) hypertension E78.2 Mixed hyperlipidemia R05 Cough Z12.31 Encntr screen mammogram for malignant neoplasm of breast Z23 Encounter for immunization Office Visit 01/17/2016 3:40p [facility] [place] S61.311D Laceration w/o Douglas Desouza M.D. fb of l idx fngr [place] w damage to nail, subs Office Visit 01/15/2016 11:40a [facility] Internal Master Cain NP S61.311D Laceration w/o Medicine - fb of l idx fngr [place] w damage to nail, subs Office Visit 10/02/2015 4:00p [facility] [place] Z00.00 Encntr for Douglas Desouza M.D. general adult [place] medical exam w/o abnormal findings E11.9 Type 2 diabetes mellitus without complications I10 Essential (primary) hypertension M77.11 Lateral epicondylitis, right elbow Z12.31 Encntr screen mammogram for malignant neoplasm of breast Z23 Encounter for immunization Office Visit 04/09/2015 11:00a [facility] [place] 250.00 Diabetes Douglas Desouza M.D. Mellitus W/O [place] Compl Type II Or Unspec Controlled 401.1 Hypertension Benign 790.4 Transaminase Or Lactic Acid Dehydrogenase Elevation Nonspec Office Visit 12/25/2014 2:00p [facility]opedic Teresa Nguyen, 727.41 Ganglion Joint [facility] 715.14 Osteoarthrosis Localized Prim Hand Office Visit 11/21/2014 4:30p [facility] Internal Master Cain NP 727.49 Cyst Synovial Medicine - Other [place] Office Visit 09/26/2014 3:00p [facility] [place] V70.0 Examination Douglas Desouza M.D. [facility] Routine AT Health Care Facility 250.00 Diabetes Mellitus W/O Compl Type II Or Unspec Controlled 401.1 Hypertension Benign 790.4 Transaminase Or Lactic Acid Dehydrogenase Elevation Nonspec V04.81 Need For Prophylactic Vaccination & Inoculation/Influenza Office Visit 04/05/2014 9:00a [facility] [place] 250.00 Julianna Desouza M.D. Mellitus W/O [place] Compl Type II Or Unspec Controlled 401.1 Hypertension Benign 790.4 Transaminase Or Lactic Acid Dehydrogenase Elevation Nonspec Office Visit 12/21/2013 9:40a [facility] [place] 790.4 Transaminase Or Douglas Desouza M.D. Lactic Acid [place] Dehydrogenase Elevation Nonspec 250.00 Diabetes Mellitus W/O Compl Type II Or Unspec Controlled 401.1 Hypertension Benign Office Visit 11/15/2013 11:00a [facility] [place] 250.00 Julianna Desouza M.D. Mellitus W/O [place] Compl Type II Or Unspec Controlled 401.1 Hypertension Benign 790.4 Transaminase Or Lactic Acid Dehydrogenase Elevation Nonspec 787.1 Heartburn 782.1 Rash & Other [place]onspec Skin Eruption Office Visit 08/15/2013 1:20p [facility] [place] 250.00 Julianna Desouza M.D. Mellitus W/O [place] Compl Type II Or Unspec Controlled 401.1 Hypertension Benign v04.81 Need For Prophylactic Vaccination & Inoculation/Influenza 787.02 Nausea Alone Office Visit 05/10/2013 9:20a [facility] [place] V70.0 Examination Douglas Desouza M.D. 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 W/O Compl Type II [place] Or Unspec Controlled 571.8 Liver Disease Chronic Nonalcoholic Other 401.1 Hypertension Benign Office Visit 09/16/2012 9:20a [facility] [place] 250.00 Julianna Desouza M.D. Mellitus W/O [place] Compl Type II Or Unspec Controlled 401.1 Hypertension Benign 790.4 Transaminase Or Lactic Acid Dehydrogenase Elevation Nonspec 246.9 Thyroid Disorders Unspec V04.81 Need For Prophylactic Vaccination & Inoculation/Influenza V06.1 Jqdqpkotgh-Sxksmkf-Glfpjijl Combined (DTaP) Office Visit 06/11/2012 12:40p [facility] Internal Medicine Daisy Hugo M.D. 786.2 Cough [place] 246.9 Thyroid Disorders Unspec Office Visit 05/18/2012 4:00p [facility] Internal Viry Hugo 786.2 Cough Medicine Daisy Kelly [place] Office Visit 03/16/2012 9:00a [facility] [place] V70.0 Examination Douglas Desouza M.D. 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 Mellitus W/O [place] Compl Type II Or Unspec Controlled 401.1 Hypertension Benign 272.0 Hypercholesterolemia Pure 790.4 Transaminase Or Lactic Acid Dehydrogenase Elevation Nonspec Office Visit 10/29/2011 10:00a DO Not Use Nadiya Nguyen, 461.9 [facility] Un[facility] v05.3 Viral Hepatitis Vaccination & Inoculation Office Visit 10/15/2011 DO Not Use Nadiya Nguyen, 599.0 UTI Urinary Tract 9:40a [facility] N.P. Infection Site Not Spec Office Visit 09/04/2011 DO Not Use [place] 401.1 Hypertension 11:20a Constantine SanD. Benign 780.4 Dizziness & Giddiness v04.81 Need For Prophylactic Vaccination & Inoculation/Influenza Office Visit 07/04/2011 DO Not Use [place] 785.0 Tachycardia 8:40a Margarita Desouza M.D. Unspec Office Visit 06/12/2011 DO Not Use [place] 250.00 Diabetes 2:40p Margarita Desouza M.D. Mellitus W/O Compl Type II Or Unspec Controlled 401.1 Hypertension Benign 272.0 Hypercholesterolemia Pure 785.0 Tachycardia Unspec Office Visit 03/03/2011 DO Not Use [place] 250.00 Diabetes 3:30p Margarita Desouza M.D. Mellitus W/O Compl Type II Or Unspec Controlled 401.1 Hypertension Benign 723.1 Cervicalgia Office Visit 10/25/2010 DO Not Use [place] V70.0 Examination 1:45p Margarita Desouza M.D. General Medical Routine AT Health Care Facility 250.00 Diabetes Mellitus W/O Compl Type II Or Unspec Controlled 401.1 Hypertension Benign 782.0 Skin Sensation Disturbance Office Visit 08/02/2010 DO Not Use [place] 250.00 Diabetes 4:00p Margarita Desouza M.D. Mellitus W/O Compl Type II Or Unspec Controlled 401.1 Hypertension Benign 272.0 Hypercholesterolemia Pure V04.81 Need For Prophylactic Vaccination & Inoculation/Influenza Office Visit 02/12/2010 DO Not Use [place], 250.00 Diabetes 10:45a Margarita Gooden M.D. 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 W/O Compl Type II Or Unspec Controlled 401.1 Hypertension Benign V04.81 Need For Prophylactic Vaccination & Inoculation/Influenza Office Visit 06/15/2009 DO Not Use [place], 250.02 Diabetes 8:45a Margarita Gooden M.D. Mellitus W/O Compl Type II Or Unspec Type Uncontrol 401.1 Hypertension Benign 272.0 Hypercholesterolemia Pure V70.0 Examination General Medical Routine AT Health Care Facility Office Visit 02/07/2009 DO Not Use [place], 250.02 Diabetes 4:00p Margarita Gooden M.D. Mellitus W/O Compl Type II Or Unspec Type Uncontrol 401.1 Hypertension Benign 272.0 Hypercholesterolemia Pure Office Visit 10/09/2008 DO Not Use [place], 250.00 Diabetes 4:00p Margarita Gooden M.D. Mellitus W/O Compl Type II Or Unspec Controlled 272.0 Hypercholesterolemia Pure 401.1 Hypertension Benign Office Visit 06/07/2008 DO Not Use [place], V70.0 Examination 8:45a Margarita Gooden M.D. General Medical Routine AT Health Care Facility 401.1 Hypertension Benign Office Visit 03/22/2008 DO Not Use [place], 250.00 Diabetes 4:00p Margarita Gooden M.D. Mellitus W/O Compl Type II Or Unspec Controlled 401.1 Hypertension Benign Office Visit 02/21/2008 DO Not Use [place], 250.00 Diabetes 10:00a Margarita Gooden M.D. Mellitus W/O Compl Type II Or Unspec Controlled 401.1 Hypertension Benign Office Visit 12/22/2007 DO Not Use [place], 242.90 Thyrotoxicosis W/O 4:00p Margarita Gooden M.D. Goiter Other Cause W/O Crisis Or Storm 250.00 Diabetes Mellitus W/O Compl Type II Or Unspec Controlled 401.1 Hypertension Benign Office Visit 08/17/2007 DO Not Use [place], 242.90 Thyrotoxicosis W/O 4:00p Margarita Gooden M.D. Goiter Other Cause W/O Crisis Or Storm 250.00 Diabetes Mellitus W/O Compl Type II Or Unspec Controlled 401.1 Hypertension Benign V04.81 Need For Prophylactic Vaccination & Inoculation/Influenza Office Visit 05/17/2007 DO Not Use [place], 250.00 Diabetes 9:45a Margarita Gooden M.D. Mellitus W/O Compl Type II Or Unspec Controlled 401.1 Hypertension Benign 780.79 Malaise And Fatigue Other 786.05 Shortness Of Breath Office Visit 01/25/2007 DO Not Use [place], 401.1 Hypertension 10:45a Margarita Gooden M.D. Benign V70.0 Examination General Medical Routine AT Health Care Facility Office Visit 11/23/2006 DO Not Use [place], 250.00 Diabetes 8:45a Margarita Gooden M.D. Mellitus W/O Compl Type II Or Unspec Controlled 401.1 Hypertension Benign 272.0 Hypercholesterolemia Pure Office Visit 08/31/2006 DO Not Use [place], 250.00 Diabetes 8:45a Margarita Gooden M.D. 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 Unspec Cause Due To Spec Agents Other Office Visit 07/17/2006 DO Not Use [place], 690.10 Seborrheic 2:00p Margarita Gooden M.D. Dermatitis Unspec Office Visit 05/26/2006 DO Not Use [place], 250.00 Diabetes 8:30a Margarita Gooden M.D. Mellitus W/O Compl Type II Or Unspec Controlled 401.1 Hypertension Benign 780.79 Malaise And Fatigue Other Plan of Treatment Future Appointment(s):01/21/2019 8:40 am - Padma Desouza M.D. at [facility] Internal Medicine - Vudxuuhfl72/21/2019 9:15 am - Danica Stoddard M.D. at [facility]11/16/2018 7:30 am - AARON Lorenzo at [facility]11/16/2018 7:30 am - SANTANA Hinds at [facility]06/30/2019 11:00 am - Padma Desouza M.D. at [facility] Internal Medicine - Elmuvkoqb33/08/2019 7:30 am - Danica Stoddard M.D. at [facility]11/11/2018 - Padma Desouza M.D.G47.33 Obstructive sleep apnea (adult) (pediatric)Comments:You have severe sleep apnea.You must use CPAP while on sedating or pain medication when napping or sleeping.If you have any sleepiness while driving you MUST avoid operating a vehicle or machinery. If you have difficulty with your equipment, or need to replace your mask or hoses, please contact your homecare agency. A weight change of 20 pounds or more may have an effect on your equipment; if you areexperiencing problems please call for an appointment.Follow up:pls move February app to january
--- OUTSIDE RECORDS SUMMARY | 2018-11-16 06:23 | XMS REPORT | Continuity of Care Document ---
:1950 External Reference #:[id number] Author Name Sabine Mon Care Team Providers Name Role Phone Padma Desouza MD Primary Care Physician Unavailable Payers Type Date Identification Numbers Payment Provider Subscriber Policy Number: [id number] Medicare Melissa Funes PayID: [id number] [address] [place] [address] Effective: 2015 Policy Number: [id number] Medicare Melissa Funes Expires: 2018 PayID: [id number] [address] [place] [address] Effective: 2015 Policy Number: [facility] Melissa Funes [id number] PayID: [id number] [address] [place] [address] Effective: 2012 Policy Number: [id number] Facets Melissa Funes Expires: 2015 PayID: [id number] [address] [address] C[place]IL[place] Wilde [address] Effective: 2010 Policy Number: [id number] [facility] Blue Melissa Funes Expires: 2012 Group Name: [facility] [address] [address] PayID: [id number] CECILIA Wilde [id number] Advance Directives Description No Information Available Problems [...] Patient has never smoked Smoking Status Reviewed: 10/27/18 Patient has never smoked Exercise Type/Frequency Exercises regularly aqua class 2x week, frequently carries My [employer] Allergies, Adverse Reactions, Alerts Date Description Reaction Status Severity Comments 06/16/2010 Penicillins HIVES Active Moderate 08/01/2010 Sulfites FLUSHED Active Moderate 07/04/2011 Holter Monitor Gel itchy spots Active rash 12/25/2014 Ceclor Active unknown 06/16/2010 NKDA Inactive Medications Medication Date Status Form Strength Qnty SIG Indications Ordering Provider Trulicity 05/26 Active Solution 0.75mg/0. 2ml inject Pen-Inject [...] 3 24HR bs tablets Cotton, by mouth M.DCarolyne once daily Blood Pressure 07/04 Active Kit 1unit 785.0 Padma Monitor /2010 s Leticia Desouza Wrist Splint 10/25 Active Misc 2unit wear at 782.0 [facility] Right And Left /2009 s night Leticia Desouza Aspirin Active Chewtabs 81mg 1 by Unknown /0000 mouth once daily Multi-Day Active Tablets 1 by Unknown Vitamins /0000 mouth every day Oscal+D Active 500/200mg daily Unknown /0000 Losartan 09/24 Hx Tablets 50mg 30tab [address] [facility] Potassium s mouth Cotton, - every [...] two puffs 786.2 e) mcg/ac s every 2 , - hours as M.D. 06/11 needed [...] Suspension 50mcg/Act 1Mont 2 sprays 461.9 Padma h each Cotton, - nostril M.D. 11/12 [...] Hydrochlorothiazi Hx Tablets 25mg 30tab 1/2 Unknown de s tablet by - mouth 08/02 daily Metformin ER Hx 500mg 120un 4 tablets Padma its by mouth Cotton, - once M.D. 03/02 Pravastatin Hx Tablets 20mg 30tab 1 by Padma / s mouth Cotton, - once M.D. 10/25 daily at bedtime Omeprazole Hx 20mg 1 po hs Unknown /0000 - 12/21 Lisinopril Hx Tablets 40mg 30tab Take 1/2 Padma /0000 s Tablet Cotton, - Every Day M.D. 02/13 Doxycycline 0000 Hx Capsules 100mg not Gonyou, Hyclate /0000 taking Alee E - PA-C 10/05 Hydrocodone-Aceta Hx Tablets 5-325mg not Gonyou, minophen /0000 taking Alee E - PA-C 06/16 Calcium 1000 + D Hx Tablets 1000-800m once Unknown /0000 g-Unit daily - 10/07 Medications Administered in Office Medication Date Status Form Strength Qnty SIG Indications Ordering Provider Depomedrol Administered Injection Danica 40MG 018 Leticia Stoddard Depomedrol Administered Injection Danica 40MG 018 Leticia Stoddard Immunizations CPT Code Status Date Vaccine Reaction Lot # [id number] Given 07/21/2018 Influenza Virus Vaccine, Quadrivalent, Split, Preservative Free 20062 Given 07/17/2017 Pneumonia Vaccine [id number] 60497 Given 07/17/2017 Influenza Virus Vaccine, [id number] Quadrivalent, Split, Preservative Free 18291 Given 10/06/2016 Influenza Virus Vaccine, no immeditate [id number] Quadrivalent, Split Virus, reaction [place] .. [place] [address] Given 04/01/2016 Pneumococcal Conjugate [id number] Vaccine 13 Valent For Intramuscular Use 49565 Given 10/02/2015 Influenza Virus Vaccine, [id number] Quadrivalent, Split, Preservative Free 48756 Given 09/26/2014 Flu Vaccine Split Virus [id number] Preservative Free For Indiv 3Yr Older 35893 Given 08/15/2013 Flu Vaccine Split Virus [id number] Preservative Free For Indiv 3Yr Older [id number] Given 09/16/2012 Fluvirin Im 3Yrs And Older [id number] 80701 Given 09/16/2012 Tdap - [id number] Tetanus/Diptheria/Acellula r Pertussis 67983 Given 04/30/2012 Hepatitis A Vaccine Adult [id number] Dosage 77370 Given 04/30/2012 Zoster (Zostavax) [id number] 89536 Given 10/29/2011 Hepatitis A Vaccine Adult [id number] Dosage 90159 Given 09/04/2011 Influenza Virus 3Yrs & [id number] Over 74028 Given 08/02/2010 Influenza Virus 3Yrs & Over 89034 Given 10/16/2009 Influenza Virus Vaccine, Pandemic Formulation 79595 Given 10/16/2009 Administration Swine Flu Shot 21976 Given 09/13/2008 Influenza Virus 3Yrs & Over 62104 Given 09/13/2008 Influenza Virus 3Yrs & Over 48301 Given 08/17/2007 Influenza Virus 3Yrs & Over 63387 Given 08/31/2006 Influenza Virus 3Yrs & Over 08492 Given 08/31/2006 Influenza Virus 3Yrs & Over Vital Signs Date Vital Result Comment 10/27/2018 8:13am Height 65 inches 5'5" Weight [...] Date Facility Test Result H/L Range Note Laboratory test 10/21/2018 [facility] In House Hemoglobin A1c 6.4 5-7 finding Lipid Profile 06/11/2018 [facility] Triglycerides 115 mg/dL 1 (Trig/Chol/HDL) [address] [place] [address] [phone] Cholesterol 100 mg/dL 2 HDL Cholesterol 45.4 mg/dL 3 LDL Cholesterol 32 mg/dL 4 Comp Metabolic Panel 06/11/2018 [facility] Sodium 138 mmol/L N 135-[address] [place] [address] [phone] Potassium 4.6 mmol/L N 3.5-5.0 Chloride 101 [...] Egfr Non- 62.5 >60 Egfr 75.6 >60 5 Laboratory test 06/11/2018 [facility] Hemoglobin A1c 6.9 % High 4.0-5.[address] (Glyco HGB) [place] [address] [phone] Urine 06/11/2018 [facility] Ur Microalbumin < 15.0 Microalbumin 101 (mg/L) [place] [address] [phone] Urine Creatinine 126.07 mg/dL Urine Microalbumin/Creatinine TNP <31 7 Laboratory test 06/11/2018 [facility] Vitamin B12 333 pg/mL N 180-[address] [place] [address] [phone] Laboratory test 02/25/2018 [facility] Hemoglobin A1c 7.1 % High 4.0-5.6 9 finding 101 (Glyco HGB) [place] [address] [phone] Comp Metabolic 02/25/2018 [facility] Sodium 137 mmol/L Low 139 -[address] [place] [address] [phone] Potassium 4.4 mmol/L N 3.5-5.0 Chloride 101 [...] Egfr Non- 59.4 >60 Egfr 76.4 >60 10 Laboratory test 02/19/2018 [facility] Surgical SEE RESULT [address] [place] [address] [phone] Laboratory test 02/19/2018 [facility] Point of Care 148 mg/dL High 70-10 [address] Glucose 0 [place] [address] [phone] Liver Function 09/10/2017 [facility] Total Protein 6.9 g/dL N 6.4-[address]9 [place] [address] [phone] Albumin 3.7 g/dL N 3.2-5.2 Globulin 3.2 g/dL N 2-4 Albumin/Globulin Ratio 1.2 N 1-3 Total Bilirubin 0.50 mg/dL N 0.2-1.0 Direct Bilirubin 0.10 mg/dL N 0.03-0.18 Indirect Bilirubin 0.4 mg/dL N 0.3-1.0 Alkaline Phosphatase 66 U/L N 34-104 Alt 71 U/L High 7-52 Ast 59 U/L High 13-39 Laboratory test 09/10/2017 [facility] Hemoglobin A1c 6.9 % High 4.0-5.6 [address] [place] [address] [phone] Lipid Profile 06/05/2017 [facility] Triglycerides 138 N 14 (Trig/Chol/HDL) [address] mg/[place] [address] [phone] Cholesterol 142 mg/dL N 15 HDL Cholesterol 44.2 mg/dL N 16 LDL Cholesterol 70 mg/dL N 17 Comp Metabolic Panel 06/05/2017 [facility] Sodium 132 mmol/L Low 133-[address] [place] [address] [phone] Potassium 4.4 mmol/L N 3.5-5.0 Chloride 98 [...] 66.9 N >60 Egfr 86.1 N >60 18 Laboratory test 06/05/2017 [facility] Hemoglobin A1c 7.1 % High Less [address] (Glyco HGB) than 6.0 [place] [address] [phone] Urine 06/05/2017 [facility] Urine 172.44 N Microalbumin [address] Creatinine mg/[place] [address] [phone] Ur Microalbumin (mg/L) < 15.0 mg/L N Urine Microalbumin/Creatinine TNP ug/mg N <31 20 Laboratory test 10/06/2016 [facility] House Hemoglobin A1c 6.5 5-7 finding Urine Microalbumin 03/31/2016 [facility] Ur Microalbumin 14.0 mg /L N Random [address] (mg/L) [place] [address] [phone] Urine Creatinine 210.95 mg/dL N Urine Microalbumin/Creatinine 6.6 ug/mg N <31 Laboratory test 03/31/2016 [facility] Hemoglobin A1c 6.0 % N Less than [address] (Glyco HGB) 6.0 [place] [address] [phone] Comp Metabolic 03/31/2016 [facility] Sodium 136 N 133-[address] [place] mmol/[place] [address] [phone] Potassium 4.6 mmol/L N 3.5-5.0 Chloride 102 [...] 62.0 N >60 Egfr 79.8 N >60 22 Lipid Profile 03/31/2016 [facility] Triglycerides 153 mg/dL N 23 (Trig/Chol/HDL) [address] [place] [address] [phone] Cholesterol 154 mg/dL N 24 HDL Cholesterol 49.7 mg/dL N 25 LDL Cholesterol 74 mg/dL N 26 Comp Metabolic Panel 09/20/2015 [facility] Sodium 135 mmol/L N 133-[address] [place] [address] [phone] Potassium 4.7 mmol/L N 3.5-5.0 Chloride 100 [...] 67.3 N >60 Egfr 86.6 N >60 27 Laboratory test 09/20/2015 [facility] Hemoglobin A1c 6.3 % High Less [address] (Glyco HGB) than 6.0 [place] [address] [phone] Urine 03/13/2015 [facility] Ur Microalbumin < 5.0 N [address] (mg/L) mg/[place] [address] [phone] Urine Creatinine 75.40 mg/dL N Urine Microalbumin/Creatinine TNP ug/mg N <31 30 Comp Metabolic Panel 03/13/2015 [facility] Sodium 137 mmol/L N 133-[address] [place] [address] [phone] Potassium 4.3 mmol/L N 3.5-5.0 Chloride 104 [...] 65.6 N >60 Egfr 84.3 N >60 31 Lipid Profile 03/13/2015 [facility] Triglycerides 132 mg/dL N 32 (Trig/Chol/HDL) [address] [place] [address] [phone] Cholesterol 133 mg/dL N 33 HDL Cholesterol 47.9 mg/dL N 34 LDL Cholesterol 59 mg/dL N 35 Laboratory test 03/13/2015 [facility] TSH (Thyroid 0.80 N 0.34 -5.60 [address] Stimulating IU/[place] [address] Horm) [phone] Hemoglobin A1c 6.3 % High Less than 6.0 37 Comp Metabolic Panel 02/19/2015 [facility] Sodium 135 mmol/L N 133-[address] [place] [address] [phone] Potassium 4.6 mmol/L N 3.5-5.0 Chloride 102 [...] 63.9 N >60 Egfr 82.1 N >60 39 Laboratory test 02/19/2015 [facility] Hemoglobin A1c 6.5 % High Less than [address] 6.0 [place] [address] [phone] Comp Metabolic 09/22/2014 [facility] Sodium 139 N 133-[address] mmol/[place] [address] [phone] Potassium 4.4 mmol/L N 3.5-5.0 41 Chloride 104 mmol/L N 101-111 Co2 Carbon [...] 62.4 N >60 Egfr 80.3 N >60 42 Laboratory test 09/22/2014 [facility] Hemoglobin A1c 7.2 % High Less than [address] 6[address]0 [place] [address] [phone] Laboratory test 05/17/2014 [facility] Hemoglobin A1c 6.3 % High Less than [address] 6[address]0 [place] [address] [phone] Comp Metabolic 02/15/2014 [facility] Sodium 137 N 133-[address] mmol/[place] [address] [phone] Potassium 4.5 mmol/L N 3.7-5.6 Chloride 103 [...] 64.1 N >60 Egfr 82.4 N >60 45 Lipid Profile 02/15/2014 [facility] Triglycerides 100 mg/dL N 46 (Trig/Chol/HDL) [address] [place] [address] [phone] Cholesterol 128 mg/dL N 47 HDL Cholesterol 42.6 mg/dL N 48 LDL Cholesterol 65 mg/dL N 49 Urine Microalbumin 02/15/2014 [facility] Ur Microalbumin 5.0 mg/ dL N <[address] (mg/L) [place] [address] [phone] Urine Creatinine 74.90 mg/dL N Urine Microalbumin/Creatinine 6.6 N Less Than 31 Laboratory test 02/15/2014 [facility] Hemoglobin A1c 6.1 % High Less than [address] 6[address]0 [place] [address] [phone] Liver Function 12/21/2013 [facility] Total Protein 7.3 g/dL 6.4-8.[address] [place] [address] [phone] Albumin 4.1 g/dL 3.2-5.2 Globulin 3.2 g/dL 2-4 Albumin/Globulin Ratio 1.3 1-3 Total Bilirubin 0.40 mg/dL 0.2-1.0 Direct Bilirubin 0.10 mg/dL 0.03-0.18 Indirect Bilirubin 0.3 mg/dL 0.3-1.0 Alkaline Phosphatase 60 U/L 34-104 Alt 61 U/L High 7-52 Ast 46 U/L High 13-39 Comp Metabolic Panel 11/15/2013 [facility] Sodium 137 mmol/L 133-[address] [place] [address] [phone] Potassium 4.5 mmol/L 3.5-5.0 Chloride 101 mmol/L [...] Egfr Non- 72.4 >60 Egfr 93.2 >60 52 Laboratory 11/15/2013 [facility] Rosetta (Anti-Nuclear Negative Negative test finding [address] AB) [place] [address] [phone] Laboratory 10/27/2013 [facility] TSH (Thyroid 0.95 miu/mL 0.34-5.[address] Stimulating Horm) [place] [address] [phone] Hemoglobin A1c 6.7 % High Less than 6.0 53 Comp Metabolic Panel 04/25/2013 [facility] Sodium 138 mmol/L 133-[address] [place] [address] [phone] Potassium 4.6 mmol/L 3.5-5.0 Chloride 104 mmol/L [...] Egfr Non- 72.7 >60 Egfr 93.5 >60 54 Lipid Profile 04/25/2013 [facility] Triglycerides 137 mg/dL 40-200 (Trig/Chol/HDL) [address] [place] [address] [phone] Cholesterol 124 mg/dL Less than 200 HDL Cholesterol 48 mg/dL 40-60 55 Cholesterol/HDL Ratio 2.6 Average 1-4.44 LDL Cholesterol 48.6 Less Than 100 56 Urine Microalbumin 04/25/2013 [facility] Ur Microalbumin 4.0 mg/ L [address] (mg/L) [place] [address] [phone] Urine Creatinine 69.9 mg/dL Urine Microalbumin/Creatinine 5.7 Less Than 31 Laboratory test 04/25/2013 [facility] Hemoglobin A1c 6.6 % High Less than [address]0 [place] [address] [phone] Laboratory test 12/17/2012 [facility] Hemoglobin A1c 6.4 5-7 finding Liver Function 10/14/2012 [facility] Total Protein 7.1 g/dL 6.2-8.[address] [place] [address] [phone] Albumin 3.9 g/dL 3.2-5.2 Globulin 3.2 g/dL 2-4 Albumin/Globulin Ratio 1.2 1-3 Total Bilirubin 0.5 mg/dL 0.4-1.5 Direct Bilirubin 0.1 mg/dL 0.1-0.5 Indirect Bilirubin 0.4 mg/dL 0.3-1.0 Alkaline Phosphatase 78 U/L 30-110 Alt 75 U/L High 14-54 Ast 69 U/L High 12-42 Laboratory test 10/14/2012 [facility] TSH (Thyroid 1.45 0.34- 5.[address] Stimulating MIU/ML [place] [phone] Horm) [phone] Cytology 10/14/2012 [facility] Racheal RUN DATE: [address] 10/14/ [place] [address] <SEE NOTE> [phone] Comp Metabolic 09/09/2012 [facility] Sodium 138 mmol/L 133- [address] [place] [address] [phone] Potassium 4.4 mmol/L 3.5-5.0 Chloride 103 mmol/L [...] 1.0 1-3 Total Bilirubin 0.6 mg/dL 0.1-1.0 60 Alkaline Phosphatase 64 U/L 30-110 Alt 68 U/L High 14-54 Ast 64 U/L High 12-42 Egfr Non- 72.9 >60 Egfr 93.8 >60 61 Laboratory test 09/09/2012 [facility] Hemoglobin A1c 6.8 % High Less [address] than 6.0 [place] [address] [phone] Urine 03/08/2012 [facility] Microalbumin 7.[address] (MG/L) mg/[place] [address] [phone] Urine Creatinine 124.7 mg/dL Yogesh Alb/Creatinine Ratio 5.6 UG/MG Less Than 30 63 Comp Metabolic Panel 03/08/2012 [facility] Sodium 137 mmol/L 135-[address] [place] [address] [phone] Potassium 4.4 mmol/L 3.5-5.0 Chloride 105 mmol/L 101-111 Co2 (Carbon Dioxide) 28.0 mmol/L 22-32 Anion Gap 4.0 mmol/L 2-11 64 Glucose 114 mg/dL High 70-100 BUN 11 mg/dL 6-24 Creatinine 0.8 mg/dL 0.50-1.40 One Over Creatinine 1.25 BUN/Creatinine Ratio 13.8 8-20 Calcium 9.2 mg/dL 8.1-9.9 Total Protein 6.6 GM/DL 6.2-8.1 Albumin 3.6 GM/DL 3.2-5.2 Globulin 3.0 GM/DL 2-4 Albumin/Globulin Ratio 1.2 1-3 Bilirubin Total 0.5 mg/dL 0.4-1.5 65 Alkaline Phosphatase 68 U/L 30-110 Alt (SGPT) 56 U/L High 14-54 Ast (Sgot) 46 U/L High 12-42 eGFR Non- 72.9 > 60 eGFR 93.8 > 60 66 Lipid Profile 03/08/2012 [facility] Triglyceride 124 mg/dL 40 -200 (Trig/Chol/HDL) [address] [place], [place] [phone] Cholesterol 129 mg/dL Less Than 200 67 High Density Lipoprotein 50 mg/dL 40-60 68 Cholesterol/HDL Ratio 2.58 AVERAGE 1-4.44 Low Density Lipoprotein 54 mg/dL Less Than 100 69 Laboratory 03/08/2012 [facility] Hemoglobin 6.4 % High Less Than 70 test finding 101 [facility] A1c 6.0 [place], [place] [phone] [phone] Laboratory 01/17/2012 [facility] Hepatitis A Positive Negative 71 test finding 101 [facility] [place] [address] Total [phone] Hepatitis B Surface Ag Nonreactive Nonreactive Hepatitis B Core AB, Total Negative Negative 72 Hepatitis C Antibody Nonreactive Nonreactive Ferritin 123 NG/ML 11.0-307 Liver Function 01/17/2012 [facility] Total Protein 7.0 GM/DL 6.2-8.1 Panel [address] [place] [address] [phone] Albumin 3.6 GM/DL 3.2-5.2 Globulin 3.4 GM/DL 2-4 Albumin/Globulin Ratio 1.1 1-3 Bilirubin Total 0.5 mg/dL 0.4-1.5 73 Bilirubin Direct 0.1 mg/dL 0.1-0.5 Indirect Bilirubin 0.4 mg/dL 0.3-1.0 74 Alkaline Phosphatase 61 U/L 30-110 Alt (SGPT) 52 U/L 14-54 Ast (Sgot) 52 U/L High 12-42 Liver Function 12/13/2011 [facility] Total Protein 6.9 GM/DL 6.2-8.1 Panel [address] [place] [address] [phone] Albumin 3.7 GM/DL 3.2-5.2 Globulin 3.2 GM/DL 2-4 Albumin/Globulin Ratio 1.2 1-3 Bilirubin Total 0.7 mg/dL 0.4-1.5 75 Bilirubin Direct 0.1 mg/dL 0.1-0.5 Indirect Bilirubin 0.6 mg/dL 0.3-1.0 76 Alkaline Phosphatase 59 U/L 30-110 Alt (SGPT) 55 U/L High 14-54 Ast (Sgot) 46 U/L High 12-42 CMP Panel 11/10/2011 [facility] Sodium 139 mmol/L 135-[address] [place], [place] [phone] Potassium 4.3 mmol/L 3.5-5.0 Chloride 102 mmol/L 101-111 Co2 (Carbon Dioxide) 29.0 mmol/L 22-32 Anion Gap 8.0 mmol/L 2-11 77 Glucose 100 mg/dL 70-100 BUN 11 mg/dL 6-24 Creatinine 0.8 mg/dL 0.50-1.40 One Over Creatinine 1.25 BUN/Creatinine Ratio 13.8 8-20 Calcium 9.5 mg/dL 8.1-9.9 Total Protein 7.0 GM/DL 6.2-8.1 Albumin 3.8 GM/DL 3.2-5.2 Globulin 3.2 GM/DL 2-4 Albumin/Globulin Ratio 1.2 1-3 Bilirubin Total 0.6 mg/dL 0.4-1.5 78 Alkaline Phosphatase 60 U/L 30-110 Alt (SGPT) 58 U/L High 14-54 Ast (Sgot) 46 U/L High 12-42 eGFR Non- 72.9 > 60 eGFR 93.8 > 60 79 Laboratory test 11/10/2011 [facility] Hemoglobin A1c 6.6 % High Less [address] 6[address]0 [place], [place] [address]85 [phone] Urine Culture & 10/04/2011 [facility] M ------- [address] ------- [place] [address] -- <SEE [phone] NOTE> Laboratory test 06/12/2011 [facility] TSH 1.15 0.34-5.[address] MIU/ML 0 [place] [address] [phone] Urine 05/31/2011 [facility] Microalbumin 8.[address] (MG/L) mg/[place] [address] [phone] Urine Creatinine 91.30 mg/dL Yogesh Alb/Creatinine Ratio 8.7 UG/MG Less Than 30 82 Laboratory test 05/31/2011 [facility] Hemoglobin A1c 6.8 % High Less Than [address] 6[address]0 [place] [address] [phone] Lipid Profile 05/31/2011 [facility] Triglyceride 95 mg/dL 40- 200 (Trig/Chol/HDL) [address] [place] [address] [phone] Cholesterol 107 mg/dL Less Than 200 84 High Density Lipoprotein 41 mg/dL 40-60 85 Cholesterol/HDL Ratio 2.61 AVERAGE 1-4.44 Low Density Lipoprotein 47 mg/dL Less Than 100 86 Laboratory test 02/28/2011 [facility] TSH 1.07 MIU/ML 0.34- 5.[address] [place] [address] [phone] Hemoglobin A1c 7.0 % High Less Than 6.0 87 Urine Microalbumin 09/06/2010 [facility] Microalbumin (MG/L) 3.0 mg/L Random [address] [place] [address] [phone] Urine Creatinine 77.37 mg/dL Yogesh Alb/Creatinine Ratio 3.8 UG/MG Less Than 30 88 Comp Metabolic Panel 09/06/2010 [facility] Sodium 134 mmol/L Low 135-[address] [place] [address] [phone] Potassium 4.6 mmol/L 3.5-5.0 Chloride 101 mmol/L 101-111 Co2 (Carbon Dioxide) 27.0 mmol/L 22-32 Anion Gap 6.0 mmol/L 2-11 89 Glucose 107 mg/dL High 70-100 90 BUN 12 mg/dL 6-24 Creatinine 0.90 mg/dL 0.50-1.40 One Over Creatinine 1.10 BUN/Creatinine Ratio 13.3 8-20 Calcium 9.0 mg/dL 8.1-9.9 Total Protein 6.7 GM/DL 6.2-8.1 Albumin 3.7 GM/DL 3.6-5.4 Globulin 3.0 GM/DL 2-4 Albumin/Globulin Ratio 1.2 1-3 Bilirubin Total 0.5 mg/dL 0.4-1.5 91 Alkaline Phosphatase 60 U/L 30-110 Alt (SGPT) 46 U/L 14-54 Ast (Sgot) 38 U/L 12-42 eGFR Non- 68.1 > 60 eGFR 82.4 > 60 92 Lipid Profile 09/06/2010 [facility] Triglyceride 178 mg/dL 40 -200 (Trig/Chol/HDL) [address] [place] [address] [phone] Cholesterol 127 mg/dL Less Than 200 93 High Density Lipoprotein 41 mg/dL 40-60 94 Cholesterol/HDL Ratio 3.10 AVERAGE 1-4.44 Low Density Lipoprotein 50 mg/dL Less Than 100 95 Laboratory test 09/06/2010 [facility] TSH 1.19 MIU/ML 0.34- 5.60 finding [address] [place] [address] [phone] Hemoglobin A1c 6.8 % High Less Than 6.0 96 1 Desirable: <150 Borderline High: 150-199 High: 200-499 Very High: >500 2 Desirable: <200 Borderline High: 200-239 High: >239 3 Low: <40 Desirable: 40-60 High: >60 4 Desirable: <100 Near Optimal: 100-129 Borderline High: 130-159 High: 160-189 Very High: >189 5 Because ethnic data is not always readily [...] 15-29 5 Kidney failure <15 (or dialysis) 6 Therapeutic target for the treatment of diabetes mellitus patients is <7% HBA1C, and in selective patients <6.0%. Please refer to [place] [employer] diabetic care guidelines for further information. 7 Unable to calculate due to low microalbumin 8 Normal Range 180 to 914 Indeterminate Range 145 to 180 Deficient Range <145 9 Therapeutic target for the treatment of diabetes mellitus patients is <7% HBA1C, and in selective patients <6.0%. Please refer to [place] [employer] diabetic care guidelines for further information. 10 Because ethnic data is not always readily [...] 15-29 5 Kidney failure <15 (or dialysis) 11 SEE RESULT BELOW Name: MELISSA FUNES : [address]: Opal Allen MD Acct: [id number] Unit: [id number] AGE: 67 Location: [place] Re02/19/18 SEX: F Status: ANALIA GOULD SPEC: [id number] EWELINA: 02/19/18-1043 [facility] DR: Opal Allen MD REQ: [id number] RECD: 02/19/18-1054 STATUS: SOUT _ ORDERED: LEVEL 5 FINAL [...] serially sectioned from lateral to medial and sales representative consultant sections are submitted in cassettes A through H to include duct in cassettes C through E, cyst in cassettes F and G and indurated focus in cassette H. Signed (signature on file) Umesh Le MD [id number] END OF REPORT DEPARTMENT OF PATHOLOGY, [address] [place] [address] Umesh Le M.D. 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 Please refer to [place] [employer] diabetic care guidelines for further information. 14 Desirable <150 Borderline high 150-199 High 200-499 Very High >500 15 Desirable <200 Borderline high 200-239 High >239 16 Low <40 Desirable: 40-60 High: >60 17 Desirable: <100 mg/dL Near Optimal: 100-129 mg/dL Borderline High: 130-159 mg/dL High: 160-189 mg/dL Very High: >189 mg/dL 18 Because ethnic data is not always readily [...] 15-29 5 Kidney failure <15 (or dialysis) 19 Therapeutic target for the treatment of diabetes Mellitus patients is <7% HBA1C, and in selective patients <6.0%.Please refer to [place] [employer] Diabetic care guidelines for further information. 20 Unable to calculate due to low microalbumin 21 Therapeutic target for the treatment of diabetes Mellitus patients is <7% HBA1C, and in selective patients <6.0%.Please refer to [place] [employer] Diabetic care guidelines for further information. 22 Because ethnic data is not always readily [...] 15-29 5 Kidney failure <15 (or dialysis) 23 Desirable <150 Borderline high 150-199 High [...] and in selective patients <6.0%.Please refer to [place] [employer] Diabetic care guidelines for further information. 29 PT IS FASTING 30 Unable to calculate due to low microalbumin 31 Because ethnic data is not always readily [...] 15-29 5 Kidney failure <15 (or dialysis) 32 Desirable <150 Borderline high 150-199 High 200-499 Very High >500 33 Desirable <200 Borderline high 200-239 High >239 34 Low <40 Desirable: 40-60 High: >60 35 Desirable: <100 mg/dL Near Optimal: 100-129 mg/dL Borderline High: 130-159 mg/dL High: 160-189 mg/dL Very High: >189 mg/dL 36 PT IS FASTING 37 Therapeutic target for the treatment of diabetes Mellitus patients is <7% HBA1C, and in selective patients <6.0%.Please refer to [place] [employer] Diabetic care guidelines for further information. 38 FASTING 39 Because ethnic data is not always readily [...] 15-29 5 Kidney failure <15 (or dialysis) 40 Therapeutic target for the treatment of diabetes Mellitus patients is <7% HBA1C, and in selective patients <6.0%.Please refer to [place] [employer] Diabetic care guidelines for further information. 41 Potassium reference range changed effective 09/10/14 42 Because ethnic data is not always readily [...] 15-29 5 Kidney failure <15 (or dialysis) 43 --- 09/24/14 0731 --- Hemoglobin A1c previously reported as: 9.7 H % Corrected result! Wrong result was 9.7 . Therapeutic target for the treatment of diabetes Mellitus patients is <7% HBA1C, and in selective patients <6.0%.Please refer to [place] [employer] Diabetic care guidelines for further information. 44 Therapeutic target for the treatment of diabetes Mellitus patients is <7% HBA1C, and in selective patients <6.0%.Please refer to [place] [employer] Diabetic care guidelines for further information. 45 Because ethnic data is not always [...] 5 Kidney failure <15 (or dialysis) 46 Desirable <150 Borderline high 150-199 High 200-499 Very High >500 47 Desirable <200 Borderline high 200-239 High >239 48 Low <40 Desirable: 40-60 High: >60 49 Desirable <100 Near Optimal 100-129 Borderline high 130-159 High 160-189 Very High >189 50 Microalbuminuria in a random sample is defined as: Microalbumin/Creatinine ratio of 30-299 ug/mg. 51 Therapeutic target for the treatment of diabetes Mellitus patients is <7% HBA1C, and in selective patients <6.0%.Please refer to [place] [employer] Diabetic care guidelines for further information. 52 Because ethnic data is not always readily [...] 15-29 5 Kidney failure <15 (or dialysis) 53 Therapeutic target for the treatment of diabetes Mellitus patients is <7% HBA1C, and in selective patients <6.0%.Please refer to [place] [employer] Diabetic care guidelines for further [...] 5 Kidney failure <15 (or dialysis) 55 HDL Interpretation: Undesirable: High Risk: Less than 40 mg/dL Desirable: Low Risk: Greater than 60 mg/dL 56 LDL Interpretation: Low Risk Optimal Level: LDL Less than 100 mg/dL Near or Above Optimal: LDL 100-129 mg/dL Borderline High Risk: LDL 130-159 mg/dL High Risk: LDL 160-189 mg/dL Very High Risk: LDL Greater than 189 mg/dL 57 Microalbuminuria in a random sample is defined as: Microalbumin/Creatinine ratio of 30-299 ug/mg. 58 Therapeutic target for the treatment of diabetes Mellitus patients is <7% HBA1C, and in selective patients <6.0%.Please refer to [place] [employer] Diabetic care guidelines for further information. 59 RUN DATE: 10/14/12 [facility] LAB LIVE PAGE 1 RUN TIME: [address] [place] [address] Specimen Inquiry Name: MELISSA FUNES : [address]: Rocky Wolfe MD Acct: [id number] Unit: [id number] AGE: 61 Location: THYROID Re10/14/12 SEX: F Status: REG REF SPEC: [id number] EWELINA: 10/14/12- GLENROY DR: Derrick STRANGE, Serge Ramirez REQ: [id number] RECD: 10/14/12 STATUS: UVALDO CHILD DR: Law STRANGE,Rocky ENTERED: 10/14/12 SP TYPE: RACHEAL Desouza MD, Zoraida Fitch _ ORDERED: FN ASP DEEP, FNA Imme St Add, LEVEL IV, FNA IMMEDIATE S FINAL DIAGNOSIS [...] performed at Main Lab DEPARTMENT OF PATHOLOGY, [facility] Training Advisor [place] [address] Umesh Le M.D. Director [facility] Permit #[id number] RUN DATE: 10/14/12 [facility] LAB LIVE PAGE 2 RUN TIME: [address] [place] [id number] Specimen Inquiry Patient: MELISSA FUNES [id number] (Continued) CLINICAL HISTORY (Continued) CLINICAL HISTORY 1.5 [...] performed at Main Lab DEPARTMENT OF PATHOLOGY, [address] [place] [address] Umesh Le M.D. Director [facility] Permit #[id number] 60 A metabolite of Naproxen, O-desmethylnaproxen, has been shown to interfere with the Jendrassik-Delleker method for measuring total bilirubin. Samples from patients who have taken Naproxen have shown spurious elevation in total bilirubin levels. 61 Because ethnic data is not always readily [...] 15-29 5 Kidney failure <15 (or dialysis) 62 Therapeutic target for the treatment of diabetes Mellitus patients is <7% HBA1C, and in selective patients <6.0%.Please refer to [place] [employer] Diabetic care guidelines for further information. 63 MICROALBUMINURIA IN A RANDOM SAMPLE IS DEFINED : MICROALBUMIN/CREATININE RATIO OF 30-299 ug/mg. . 64 Anion gap measurement may be of limited value in the presence of any alkalosis, especially in a combined acid base disorder. . 65 A metabolite of Naproxen, O-desmethylnaproxen, has been shown to interfere with the Jendrassik-Delleker method for measuring total bilirubin. Samples from patients who have taken Naproxen have shown spurious elevation in total bilirubin levels. 66 Because ethnic data is not always readily [...] 15-29 5 Kidney failure <15 (or dialysis) 67 CHOLESTEROL INTERPRETATION: Desirable: Less than 200 MG/DL Borderline-High Risk: 200-239 MG/DL High-Risk: 240 MG/DL and over 68 HDL INTERPRETATION: Undesirable: High Risk: Less than 40 MG/DL Desirable: Low Risk: Greater than 60 MG/DL 69 LDL INTERPRETATION: Low Risk Optimal Level: LDL Less than 100 MG/DL Near or Above Optimal: LDL 100-129 MG/DL Borderline High Risk: LDL 130-159 MG/DL High Risk: LDL 160-189 MG/DL Very High Risk: LDL Greater than 189 MG/DL 70 THERAPEUTIC TARGET FOR THE TREATMENT OF DIABETES MELLITUS PATIENTS IS <7% HBA1C, AND IN SELECTIVE PATIENTS <6.0%. PLEASE REFER TO [place] [employer] DIABETIC CARE GUIDELINES FOR FURTHER INFORMATION. 71 Test Performed by: [facility] Dpt of Lab Med and Pathology [address] [place] [address] Care Specialist: Davey Valdivia III, M.D. 72 Test Performed by: [facility] Dpt of Lab Med and Pathology [address] [place] [address] Care Specialist: Davey Valdivia III, M.D. 73 A metabolite of Naproxen, O-desmethylnaproxen, has been shown to interfere with the Jendrassik-Delleker method for measuring total bilirubin. Samples from patients who have taken Naproxen have shown spurious elevation in total bilirubin levels. 74 Please note updated reference range, effective 05/30/10 75 A metabolite of Naproxen, O-desmethylnaproxen, has been shown to interfere with the Jendrassik-Carlos method for measuring total bilirubin. Samples from patients who have taken Naproxen have shown spurious elevation in total bilirubin levels. 76 Please note updated reference range, effective 05/30/10 77 Anion gap measurement may be of limited value in the presence of any alkalosis, especially in a combined acid base disorder. . 78 A metabolite of Naproxen, O-desmethylnaproxen, has been shown to interfere with the Jendrassik-Carlos method for measuring total bilirubin. Samples from patients who have taken Naproxen have shown spurious elevation in total bilirubin levels. 79 Because ethnic data is not always readily [...] 15-29 5 Kidney failure <15 (or dialysis) 80 THERAPEUTIC TARGET FOR THE TREATMENT OF DIABETES MELLITUS PATIENTS IS <7% HBA1C, AND IN SELECTIVE PATIENTS <6.0%. PLEASE REFER TO [place] [employer] DIABETIC CARE GUIDELINES FOR FURTHER INFORMATION. 81 RUN DATE: 10/06/11 [facility] NMI LIVE PAGE 1 RUN TIME: 1032 Specimen Inquiry RUN USER: INTERFACE Name: MELISSA FUNES Status: ANALIA CLI Re10/04/11 Age/Sex: 60/F Unit#: [id number] Location: [facility] : 50 SPEC #: [id number] EWELINA: 10/04/11 STATUS: DARNELL REQ #: [id number] RECD: 10/04/[address]: Gregoria Ortiz MD SOURCE: URINE ENTR: 10/04/[address]: Deo STRANGE, Padma Fitch SPDESC: ORDERED: URINE C S QUERIES: SPECIMEN DESCRIPTION: [...] *These antibiotics are not available in the [facility] Formulary. Contact the Microbiology Department for any additional antibiotic reporting. - [facility] [place] [facility] Permit #[id number] [address] [place] [address] DEPARTMENT OF PATHOLOGY, [address] [place] [address] [facility] Permit #[id number] Umesh Le M.D. Director Felicitas Cueva M.D. Seat Cover Maker 82 MICROALBUMINURIA IN A RANDOM SAMPLE IS DEFINED : MICROALBUMIN/CREATININE RATIO OF 30-299 ug/mg. . 83 THERAPEUTIC TARGET FOR THE TREATMENT OF DIABETES MELLITUS PATIENTS IS <7% HBA1C, AND IN SELECTIVE PATIENTS <6.0%. PLEASE REFER TO [place] [employer] DIABETIC CARE GUIDELINES FOR FURTHER INFORMATION. 84 CHOLESTEROL INTERPRETATION: Desirable: Less than 200 [...] Risk: LDL Greater than 189 MG/DL 87 THERAPEUTIC TARGET FOR THE TREATMENT OF DIABETES MELLITUS PATIENTS IS <7% HBA1C, AND IN SELECTIVE PATIENTS <6.0%. PLEASE REFER TO [place] [employer] DIABETIC CARE GUIDELINES FOR FURTHER INFORMATION. 88 MICROALBUMINURIA IN A RANDOM SAMPLE IS DEFINED : MICROALBUMIN/CREATININE RATIO OF 30-299 ug/mg. . 89 Anion gap measurement may be of limited value in the presence of any alkalosis, especially in a combined acid base disorder. . 90 Note change in reference range as of 08/21/08. The change was based on recommendations from the [place] [employer]. 91 A metabolite of Naproxen, O-desmethylnaproxen, has been shown to interfere with the Jendrassik-Carlos method for measuring total bilirubin. Samples from patients who have taken Naproxen have shown spurious elevation in total bilirubin levels. 92 Because ethnic data is not always readily [...] 15-29 5 Kidney failure <15 (or dialysis) 93 CHOLESTEROL INTERPRETATION: Desirable: Less than 200 MG/DL Borderline-High Risk: 200-239 MG/DL High-Risk: 240 MG/DL and over 94 HDL INTERPRETATION: Undesirable: High Risk: Less than 40 MG/DL Desirable: Low Risk: Greater than 60 MG/DL 95 LDL INTERPRETATION: Low Risk Optimal Level: LDL Less than 100 MG/DL Near or Above Optimal: LDL 100-129 MG/DL Borderline High Risk: LDL 130-159 MG/DL High Risk: LDL 160-189 MG/DL Very High Risk: LDL Greater than 189 MG/DL 96 THERAPEUTIC TARGET FOR THE TREATMENT OF DIABETES MELLITUS PATIENTS IS <7% HBA1C, AND IN SELECTIVE PATIENTS <6.0%. PLEASE REFER TO [place] [employer] DIABETIC CARE GUIDELINES FOR FURTHER INFORMATION. Procedures Date Code Description Status 10/21/2018 81189 EKG Tracing & Interpretation Completed 06/30/201888201 Inject/Drain Joint/Bursa Major W/O US Completed 05/11/2018 405225362 Diabetic Retinal Eye Exam Completed 03/24/201869793 Inject/Drain Joint/Bursa Major W/O US Completed 02/19/2018 62513 Nipple Exploration Completed 12/11/2017 [id number] Mammogram Completed 10/16/2017 [id number] Diabetic Retinal Eye Exam Completed 04/14/2017 966520098 Diabetic Retinal Eye Exam Completed 10/31/2016 10691855 Mammogram Completed 10/09/2016 129504294 Diabetic Retinal Eye Exam Completed 06/11/2016 826832820 Bone Mineral Density Test Completed 2015 84355767 Mammogram Completed 09/20/2015 588575810 Diabetic Retinal Eye Exam Completed 09/19/2014 752649088 Diabetic Retinal Eye Exam Completed 08/31/2014 10494844 Mammogram Completed 09/30/2013 190035701 Diabetic Retinal Eye Exam Completed 07/14/2013 54021304 Mammogram Completed 09/10/2012 089468906 Diabetic Retinal Eye Exam Completed 05/18/2012 30626 EKG Tracing & Interpretation Completed 03/30/2012 80944590 Mammogram Completed 06/19/2011 36856 Holter Monitor Completed 06/12/2011 51827 EKG Tracing & Interpretation Completed 03/20/2011 55995412 Colonoscopy Completed 11/05/2010 61174665 Mammogram Completed 11/05/2010 489881741 Bone Mineral Density Test Completed 06/15/2009 48059 EKG Tracing & Interpretation Completed 06/07/2008 24538 EKG Tracing & Interpretation Completed 01/31/2008 67081 EKG, Interpretation Only Completed 01/31/2008 99366 EKG, Interpretation Only Completed 01/25/2007 75824 EKG Tracing & Interpretation Completed 12/03/2005 28389563 Mammogram Completed Encounters Type Date Location Provider Dx Diagnosis Office Visit 05/31/2018 Orthopedic Danica Stoddard, M17.12 Unilateral primary 9:00a [facility] osteoarthritis, left knee M25.562 Pain in left knee M25.462 Effusion, left knee Office Visit 03/02/2018 9:00a [facility] Internal Padma E11.9 Type 2 diabetes Medicine - Leticia Desouza mellitus without Edna complications R74.0 Nonspec elev of levels of transamns & lactic acid dehydrgnse M25.562 Pain in left knee I10 Essential (primary) hypertension E78.5 Hyperlipidemia, unspecified Office Visit 02/02/2018 10:15a Surgical Opal Ruperto N64.52 Nipple discharge [facility] MD Alejandro Office Visit 12/21/2017 8:00a Orthopedic Danica Stoddard, M17.12 Unilateral [facility] primary C.M.A. osteoarthritis, left knee M25.562 Pain in left knee M25.462 Effusion, left knee Office Visit 11/27/2017 8:40a [facility] Internal Padma I10 Essential ( primary) Douglas Desouza M.D. hypertension Edna N64.52 Nipple discharge E11.9 Type 2 diabetes mellitus without complications M25.562 Pain in left knee Office Visit 10/08/2017 8:00a Pulmonology And Sleep Araceli Wolf MD R05 Cough [facility] R06.83 Snoring R06.00 Dyspnea, unspecified R53.83 Other fatigue Office Visit 09/24/2017 10:20a [facility] Internal Padma E11.9 Type 2 diabetes Douglas Desouza M.D. mellitus without Edna complications I10 Essential (primary) hypertension F32.89 Other specified depressive episodes Office Visit 07/17/2017 8:40a [facility] Internal Nadiya Nguyen, F32.9 Major depressive Medicine - N.P. disorder, single Edna episode, unspecified R05 Cough Z23 Encounter for immunization Office Visit 06/16/2017 11:40a [facility] Internal Nadiya Nguyen, J06.9 Acute upper Medicine - N.P. respiratory Edna infection, unspecified F32.9 Major depressive disorder, single episode, unspecified Office Visit 10/06/2016 8:40a [facility] Internal aPdma E11.9 Type 2 diabetes Douglas Desouza M.D. mellitus without Edna complications I10 Essential (primary) hypertension E78.2 Mixed hyperlipidemia R05 Cough Z12.31 Encntr screen mammogram for malignant neoplasm of breast Z23 Encounter for immunization Office Visit 01/17/2016 3:40p [facility] Internal Padma S61.311D Laceration w/o Douglas Desouza M.D. fb of l idx fngr Edna w damage to nail, subs Office Visit 01/15/2016 11:40a [facility] Internal Master Cain NP S61.311D Laceration w/o Medicine - fb of l idx fngr Edna w damage to nail, subs Office Visit 10/02/2015 4:00p [facility] Internal Padma Z00.00 Encntr for Douglas Desouza M.D. general adult Edna medical exam w/o abnormal findings E11.9 Type 2 diabetes mellitus without complications I10 Essential (primary) hypertension M77.11 Lateral epicondylitis, right elbow Z12.31 Encntr screen mammogram for malignant neoplasm of breast Z23 Encounter for immunization Office Visit 04/09/2015 11:00a [facility] Internal Padma 250.00 Diabetes Douglas Desouza M.D. Mellitus W/O Edna Compl Type II Or Unspec Controlled 401.1 Hypertension Benign 790.4 Transaminase Or Lactic Acid Dehydrogenase Elevation Nonspec Office Visit 12/25/2014 2:00p Orthopedic Teresa Nguyen 727.41 Ganglion Joint [facility] Wasserman 715.14 Osteoarthrosis Localized Prim Hand Office Visit 11/21/2014 4:30p [facility] Internal Master Cain NP 727.49 Cyst Synovial Medicine - [facility] Office Visit 09/26/2014 3:00p [facility] Internal Padma V70.0 Examination Douglas Desouza M.D. [facility] Routine AT Health Care Facility 250.00 Diabetes Mellitus W/O Compl Type II Or Unspec Controlled 401.1 Hypertension Benign 790.4 Transaminase Or Lactic Acid Dehydrogenase Elevation Nonspec V04.81 Need For Prophylactic Vaccination & Inoculation/Influenza Office Visit 04/05/2014 9:00a [facility] Internal Padma 250.00 Julianna Desouza M.D. Mellitus W/O Edna Compl Type II Or Unspec Controlled 401.1 Hypertension Benign 790.4 Transaminase Or Lactic Acid Dehydrogenase Elevation Nonspec Office Visit 12/21/2013 9:40a [facility] Internal Padma 790.4 Transaminase Or Douglas Desouza M.D. Lactic Acid Edna Dehydrogenase Elevation Nonspec 250.00 Diabetes Mellitus W/O Compl Type II Or Unspec Controlled 401.1 Hypertension Benign Office Visit 11/15/2013 11:00a [facility] Internal Padma 250.00 Julianna Desouza M.D. Mellitus W/O Edna Compl Type II Or Unspec Controlled 401.1 Hypertension Benign 790.4 Transaminase Or Lactic Acid Dehydrogenase Elevation Nonspec 787.1 Heartburn 782.1 Rash & Other Nonspec Skin Eruption Office Visit 08/15/2013 1:20p [facility] Internal Padma 250.00 Julianna Desouza M.D. Mellitus W/O Edna Compl Type II Or Unspec Controlled 401.1 Hypertension Benign v04.81 Need For Prophylactic Vaccination & Inoculation/Influenza 787.02 Nausea Alone Office Visit 05/10/2013 9:20a [facility] Internal Padma V70.0 Examination Douglas Desouza M.D. [facility] Routine AT Health Care Facility V72.31 Routine Can Labeler Examination V76.10 Screening For Malignant Neoplasm Breast 250.00 Diabetes Mellitus W/O Compl Type II Or Unspec Controlled 401.1 Hypertension Benign 571.8 Liver Disease Chronic Nonalcoholic Other 246.9 Thyroid Disorders Unspec Office Visit 03/23/2013 3:00p [facility] Internal Nurse Visit A 401.1 Hypertension Medicine - Benign Edna Office Visit 12/17/2012 9:00a [facility] Internal Padma 250.00 Diabetes Sary Desouza M.D. W/O Compl Type II Edna Or Unspec Controlled 571.8 Liver Disease Chronic Nonalcoholic Other 401.1 Hypertension Benign Office Visit 09/16/2012 9:20a [facility] Internal Padma 250.00 Julianna Desouza M.D. Mellitus W/O Edna Compl Type II Or Unspec Controlled 401.1 Hypertension Benign 790.4 Transaminase Or Lactic Acid Dehydrogenase Elevation Nonspec 246.9 Thyroid Disorders Unspec V04.81 Need For Prophylactic Vaccination & Inoculation/Influenza V06.1 Mahatqftug-Klowgbx-Tnyqgrlj Combined (DTaP) Office Visit 06/11/2012 12:40p [facility] Internal Medicine - Viry Hugo M.D. 786.2 Cough Edna 246.9 Thyroid Disorders Unspec Office Visit 05/18/2012 4:00p [facility] Internal Viyr Hugo 786.2 Cough Douglas Villa M.D. Edna Office Visit 03/16/2012 9:00a [facility] Internal Padma V70.0 Examination Douglas Desouza M.D. [facility] Routine AT Health Care Facility V72.31 Routine Can Labeler Examination V76.10 Screening For Malignant Neoplasm Breast 250.00 Diabetes Mellitus W/O Compl Type II Or Unspec Controlled 401.1 Hypertension Benign 790.4 Transaminase Or Lactic Acid Dehydrogenase Elevation Nonspec Office Visit 11/13/2011 11:00a [facility] Internal Padma 250.00 Julianna Desouza M.D. Mellitus W/O Edna Compl Type II Or Unspec Controlled 401.1 Hypertension Benign 272.0 Hypercholesterolemia Pure 790.4 Transaminase Or Lactic Acid Dehydrogenase Elevation Nonspec Office Visit 10/29/2011 10:00a DO Not Use Nadiya Wendy, 461.9 Sinusitis Acute Otm Consultant-Edna N.P. Unspec v05.3 Viral Hepatitis Vaccination & Inoculation Office Visit 10/15/2011 DO Not Use Nadiya Nguyen, 599.0 UTI Urinary Tract 9:40a Otm Consultant-Edna N.P. Infection Site Not Spec Office Visit 09/04/2011 DO Not Use Padma 401.1 Hypertension 11:20a Margarita Desouza M.D. 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 Mellitus [...] And Fatigue Other Plan of Treatment Future Appointment(s):11/29/2018 8:15 am - Danica Stoddard M.D. at [facility].06/30/2019 11:00 am - Padma Desouza M.D. at [facility] Internal Medicine [facility]02/18/2019 9:00 am - Padma Desouza M.D. at [facility] Internal Medicine [facility]11/16/2018 7:30 am - Danica Stoddard M.D. at [facility]10/27/2018 - Danica Stoddard M.D.M25.562 Pain in left kneeFollow up:Follow up: 2 weeks after hpvokmaW83.462 Effusion, left kneeM17.12 Unilateral primary osteoarthritis, left knee
--- OUTSIDE RECORDS SUMMARY | 2018-11-16 06:23 | XMS REPORT | Continuity of Care Document ---
:1950 External Reference #:[id number] Author Name Raheem Latonya Care Team Providers Name Role Phone Padma Desouza MD Primary Care Physician Unavailable Payers Type Date Identification Numbers Payment Provider Subscriber Policy Number: [id number] Medicare Melissa Funes PayID: [id number] [address] [place] [address] Effective: 2015 Policy Number: [id number] Medicare Melissa Funes Expires: 2018 PayID: [id number] [address] [place] [address] Effective: 2015 Policy Number: [facility] Melissa Funes [id number] PayID: [id number] [address] [place] [address] Effective: 2012 Policy Number: [id number] [employer]ets Melissa Funes Expires: 2015 PayID: [id number] [address] [address] [place] [address] Effective: 2010 Policy Number: [id number] [facility] Blue Melissa Funes Expires: 2012 Group Name: [facility] [address] [address] PayID: [id number] [place]de [id number] Advance Directives Description No Information Available Problems Date Description Provider Status Onset: 12/06/2009 Type 2 diabetes mellitus Padma Desouza M.D. Active Onset: 12/06/2009 Benign essential hypertension Padma Desouza M.D. Active Onset: 11/09/2012 Chronic nonalcoholic liver disease Padma Desouza M.D. Active Onset: 10/02/2015 Essential hypertension Padma Desouza M.D. Active Onset: 12/21/2017 Localized, primary osteoarthritis Danica Stoddard M.D. Active Family History Date Family Member(s) Problem(s) Comments [...] 22 ETOH Use Drinks Alcoholic Beverages Rarely Tobacco Use Start: Unknown Patient has never smoked Recreational Drug Use Denies Drug Use Smoking Status Reviewed: 10/21/18 Patient has never smoked Exercise Type/Frequency Exercises regularly aqua class 2x week, frequently carries firewood Allergies, Adverse Reactions, Alerts Date Description Reaction Status Severity Comments 06/16/2010 Penicillins HIVES Active Moderate 08/01/2010 Sulfites FLUSHED Active Moderate 07/04/2011 Holter Monitor Gel itchy spots Active rash 12/25/2014 Ceclor Active unknown 06/16/2010 NKDA Inactive Medications Medication Date Status Form Strength Qnty SIG Indications Ordering Provider Suzanne 05/26 Active Solution 0.75mg/0. 2ml inject Pen-Inject [...] 10/25 Active Misc 2unit wear at 782.0 Padma Right And Left /2009 s night Leticia Desouza Aspirin Active Chewtabs 81mg 1 by Unknown /0000 mouth once daily Multi-Day Active Tablets 1 by Unknown Vitamins /0000 mouth every day Oscal+D Active 500/200mg daily Unknown /0000 Losartan 09/24 Hx Tablets 50mg 30tab 1 by [facility] Potassium s mouth Cotton, - every day [...] each Varn, N.P. - nostril 08/16 daily as needed Cheratussin ac 06/16 Hx Solution 100-10mg/ [...] Cotton, - mouth at M.D. 03/02 bedtime Hydrocortisone 11/15 Hx Lotion 2.5% 118un apply [...] Hx Patches 1.5mg 4unit apply to 250.00 Padma 72HR s skin Cotton, - behind M.D. 03/15 the ear once every 3 days Azithromycin 10/29 Hx Tablets 250mg 6tabs two tabs 461.9 Padma day one, Cotton, - one daily M.D. 11/08 till Fluticasone 10/29 Hx Suspension 50mcg/Act 1Mont 2 sprays 461.9 Padma Propionate h each Cotton, - nostril M.D. 11/12 daily needed Vivotif Luz 10/[address] 4caps 1 tablet Padma /2011 every Cotton, - other day M.D. 03/15 until gone Freestyle Lite 09/18 Hx 100un two times Padma Lancets its daily or Cotton, - as needed M.D. 03/15 Glucometer - Free 09/05 Hx as Padma Style Lite /2010 directed Cotton, - M.D. 03/15 Freestyle Lite 09/05 Hx 100un use as Padma Test Strip its directed Cotton, - two times M.D. 03/15 daily or /2011 as needed dx:pcos/i gt Multi Vitamin 03/03 Hx Tablets 1 tablet Padma once Cotton, - daily M.D. 04/05 OS-Saad [...] ER Hx 500mg 120un 4 tablets Padma / its by mouth Cotton, - once M.D. 03/02 daily Pravastatin Hx Tablets 20mg 30tab 1 by Padma / s mouth Cotton, - once M.D. 10/25 daily at bedtime Omeprazole Hx 20mg 1 po hs Unknown /0000 - 12/21 Lisinopril Hx Tablets 40mg 30tab Take 1/2 Padma /0000 s Tablet Cotton, - Every Day M.D. 02/13 Doxycycline 0000 Hx Capsules 100mg not Gonyou, Hyclate /0000 taking Alee E, - PA-C 10/05 Hydrocodone-Aceta 00 Hx Tablets 5-325mg not Gonyou, minophen /0000 [...] Code Status Date Vaccine Reaction Lot # [id number] Given 07/21/2018 Influenza Virus Vaccine, Quadrivalent, Split, Preservative Free [id number] Given 07/17/2017 Pneumonia Vaccine [id number] 43829 Given 07/17/2017 Influenza Virus Vaccine, [id number] Quadrivalent, Split, Preservative Free 25768 Given 10/06/2016 Influenza Virus Vaccine, no immeditate [id number] Quadrivalent, Split Virus, [place] [address] Given 04/01/2016 Pneumococcal Conjugate [id number] Vaccine 13 Valent For Intramuscular Use 26294 Given 10/02/2015 Influenza Virus Vaccine, [id number] Quadrivalent, Split, Preservative Free 11743 Given 09/26/2014 Flu Vaccine Split Virus [id number] Preservative Free For Indiv 3Yr Older 27461 Given 08/15/2013 Flu Vaccine Split Virus [id number] Preservative Free For Indiv 3Yr Older [id number] Given 09/16/2012 Fluvirin Im 3Yrs And Older [id number] 35194 Given 09/16/2012 Tdap - [id number] Tetanus/Diptheria/Acellula r Pertussis 35860 Given 04/30/2012 Hepatitis A Vaccine Adult [id number] Dosage 42323 Given 04/30/2012 Zoster (Zostavax) [id number] 84274 Given 10/29/2011 Hepatitis A Vaccine Adult [id number] Dosage 20257 Given 09/04/2011 Influenza Virus 3Yrs & [id number] Over 64594 Given 08/02/2010 Influenza Virus 3Yrs & Over 29031 Given 10/16/2009 Influenza Virus Vaccine, Pandemic Formulation 68394 Given 10/16/2009 Administration Swine Flu Shot 19052 Given 09/13/2008 Influenza Virus 3Yrs & Over 53440 Given 09/13/2008 Influenza Virus 3Yrs & Over 91096 Given 08/17/2007 Influenza Virus 3Yrs & Over 94507 Given 08/31/2006 Influenza Virus 3Yrs & Over 28024 Given 08/31/2006 Influenza Virus 3Yrs & Over Vital Signs Date Vital Result Comment 10/21/2018 10:24am Height 65 inches 5'5" Weight [...] Test Result H/L Range Note Laboratory test 06/11/2018 [facility] Vitamin B12 333 pg/mL N 180-914 1 finding [address] [place] [address] [phone] Lipid Profile 06/11/2018 [facility] Triglycerides 115 mg/dL 2 (Trig/Chol/HDL) [address] [place] [address] [phone] Cholesterol 100 mg/dL 3 HDL Cholesterol 45.4 mg/dL 4 LDL Cholesterol 32 mg/dL 5 Comp Metabolic Panel 06/11/2018 [facility] Sodium 138 mmol/L N 135-145 [address] [place] [address] [phone] Potassium 4.6 mmol/L N 3.5-5.0 Chloride 101 [...] Egfr Non- 62.5 >60 Egfr 75.6 >60 6 Urine Microalbumin 06/11/2018 [facility] Ur Microalbumin < 15.[address] (mg/L) [place] [address] [phone] Urine Creatinine 126.07 mg/dL Urine Microalbumin/Creatinine TNP <31 7 Laboratory test 06/11/2018 [facility] Hemoglobin A1c 6.9 % High 4.0-5.6 [address] (Glyco HGB) [place] [address] [phone] Laboratory test 02/25/2018 [facility] Hemoglobin A1c 7.1 % High 4.0-5.6 [address] (Glyco HGB) [place] [address] [phone] Comp Metabolic 02/25/2018 [facility] Sodium 137 Low 139-[address] mmol/[place] [address] [phone] Potassium 4.4 mmol/L N 3.5-5.0 Chloride 101 [...] U/L High 7-52 Ast 66 U/L High 1339 Egfr Non- 59.4 >60 Egfr 76.4 >60 10 Laboratory test 02/19/2018 [facility] Surgical SEE RESULT [address] [place] [address] [phone] Laboratory test 02/19/2018 [facility] Point of Care 148 mg/dL High 70-10 [address] Glucose 0 [place] [address] [phone] Liver Function 09/10/2017 [facility] Total Protein 6.9 g/dL N 6.4-[address] [place] [address] [phone] Albumin 3.7 g/dL N 3.2-5.2 Globulin 3.2 g/dL N 2-4 Albumin/Globulin Ratio 1.2 N 1-3 Total Bilirubin 0.50 mg/dL N 0.2-1.0 Direct Bilirubin 0.10 mg/dL N 0.03-0.18 Indirect Bilirubin 0.4 mg/dL N 0.3-1.0 Alkaline Phosphatase 66 U/L N 34-104 Alt 71 U/L High 7-52 Ast 59 U/L High 13-39 Laboratory test 09/10/2017 [facility] Hemoglobin A1c 6.9 % High 4.0-5.6 [address] [place] [address] [phone] Lipid Profile 06/05/2017 [facility] Triglycerides 138 N 14 (Trig/Chol/HDL) [address] mg/[place] [address] [phone] Cholesterol 142 mg/dL N 15 HDL Cholesterol 44.2 mg/dL N 16 LDL Cholesterol 70 mg/dL N 17 Comp Metabolic Panel 06/05/2017 [facility] Sodium 132 mmol/L Low 133-[address] [place] [address] [phone] Potassium 4.4 mmol/L N 3.5-5.0 Chloride 98 [...] 86.1 N >60 18 Laboratory test 06/05/2017 [facility] Hemoglobin A1c 7.1 % High Less [address] (Glyco HGB) than 6.0 [place] [address] [phone] Urine 06/05/2017 [facility] Urine 172.44 [address] Microalbumin [address] Creatinine mg/[place] [address] [phone] Ur Microalbumin (mg/L) < 15.0 mg/L N Urine Microalbumin/Creatinine TNP ug/mg N <31 20 Laboratory test 10/06/2016 [facility] Hemoglobin A1c 6.5 5-7 finding Lipid Profile 03/31/2016 [facility] Triglycerides 153 mg/dL N 21 (Trig/Chol/HDL) [address] [place] [address] [phone] Cholesterol 154 mg/dL N 22 HDL Cholesterol 49.7 mg/dL N 23 LDL Cholesterol 74 mg/dL N 24 Comp Metabolic Panel 03/31/2016 [facility] Sodium 136 mmol/L N 133-[address] [place] [address] [phone] Potassium 4.6 mmol/L N 3.5-5.0 Chloride 102 [...] 62.0 N >60 Egfr 79.8 N >60 25 Laboratory test 03/31/2016 [facility] Hemoglobin A1c 6.0 % N Less [address] (Glyco HGB) than 6.0 [place] [address] [phone] Urine 03/31/2016 [facility] Ur Microalbumin 14.[address] Microalbumin [address] (mg/L) mg/[place] [address] [phone] Urine Creatinine 210.95 mg/dL N Urine Microalbumin/Creatinine 6.6 ug/mg N <31 Comp Metabolic Panel 09/20/2015 [facility] Sodium 135 mmol/L N 133-[address] [place] [address] [phone] Potassium 4.7 mmol/L N 3.5-5.0 Chloride 100 [...] 86.6 N >60 27 Laboratory test 09/20/2015 [facility] Hemoglobin A1c 6.3 % High Less [address] (Glyco HGB) than 6.0 [place] [address] [phone] Urine 03/13/2015 [facility] Ur Microalbumin < 5.0 N [address] (mg/L) mg/[place] [address] [phone] Urine Creatinine 75.40 mg/dL N Urine Microalbumin/Creatinine TNP ug/mg N <31 30 Comp Metabolic Panel 03/13/2015 [facility] Sodium 137 mmol/L N 133-[address] [place], [place] [address] [phone] Potassium 4.3 mmol/L N 3.5-5.0 Chloride 104 [...] 84.3 N >60 31 Lipid Profile 03/13/2015 [facility] Triglycerides 132 mg/dL N 32 (Trig/Chol/HDL) [address] [place] [address] [phone] Cholesterol 133 mg/dL N 33 HDL Cholesterol 47.9 mg/dL N 34 LDL Cholesterol 59 mg/dL N 35 Laboratory test 03/13/2015 [facility] TSH (Thyroid 0.80 N 0.34 -5.60 [address] Stimulating IU/[place] [address] Horm) [phone] Hemoglobin A1c 6.3 % High Less than 6.0 37 Laboratory test 02/19/2015 [facility] Hemoglobin A1c 6.5 % High Less 38, [address] than 6[address]0 [place] [address] [phone] Comp Metabolic 02/19/2015 [facility] Sodium 135 N 133-[address] mmol/[place] [address] [phone] Potassium 4.6 mmol/L N 3.5-5.0 Chloride 102 [...] 63.9 N >60 Egfr 82.1 N >60 40 Comp Metabolic Panel 09/22/2014 [facility] Sodium 139 mmol/L N 133-[address] [place] [address] [phone] Potassium 4.4 mmol/L N 3.5-5.0 41 Chloride [...] 80.3 N >60 42 Laboratory test 09/22/2014 [facility] Hemoglobin A1c 7.2 % High Less than [address] 6[address]0 [place] [address] [phone] Laboratory test 05/17/2014 [facility] Hemoglobin A1c 6.3 % High Less than [address] 6[address]0 [place] [address] [phone] Comp Metabolic 02/15/2014 [facility] Sodium 137 N 133-[address] mmol/[place] [address] [phone] Potassium 4.5 mmol/L N 3.7-5.6 Chloride 103 [...] 82.4 N >60 45 Lipid Profile 02/15/2014 [facility] Triglycerides 100 mg/dL N 46 (Trig/Chol/HDL) [address] [place] [address] [phone] Cholesterol 128 mg/dL N 47 HDL Cholesterol 42.6 mg/dL N 48 LDL Cholesterol 65 mg/dL N 49 Urine Microalbumin 02/15/2014 [facility] Ur Microalbumin 5.0 mg/ dL N <30 [address] (mg/L) [place] [address] [phone] Urine Creatinine 74.90 mg/dL N Urine Microalbumin/Creatinine 6.6 N Less Than 31 Laboratory test 02/15/2014 [facility] Hemoglobin A1c 6.1 % High Less than [address] 6[address] [place] [address] [phone] Liver Function 12/21/2013 [facility] Total Protein 7.3 g/dL 6.4-8.[address] [place] [address] [phone] Albumin 4.1 g/dL 3.2-5.2 Globulin 3.2 g/dL 2-4 Albumin/Globulin Ratio 1.3 1-3 Total Bilirubin 0.40 mg/dL 0.2-1.0 Direct Bilirubin 0.10 mg/dL 0.03-0.18 Indirect Bilirubin 0.3 mg/dL 0.3-1.0 Alkaline Phosphatase 60 U/L 34-104 Alt 61 U/L High 7-52 Ast 46 U/L High 13-39 Comp Metabolic Panel 11/15/2013 [facility] Sodium 137 mmol/L 133-[address] [place] [address] [phone] Potassium 4.5 mmol/L 3.5-5.0 Chloride 101 mmol/L [...] >60 Egfr 93.2 >60 52 Laboratory 11/15/2013 [facility] [place] (Anti-Nuclear Negative Negative test finding [address]) [place] [address] [phone] Laboratory 10/27/2013 [facility] TSH (Thyroid 0.95 miu/mL 0.34-5.[address] Stimulating Horm) [place] [address] [phone] Hemoglobin A1c 6.7 % High Less than 6.0 53 Laboratory test 04/25/2013 [facility] Hemoglobin A1c 6.6 % High Less than [address] [place] [address] [phone] Comp Metabolic 04/25/2013 [facility] Sodium 138 133-[address] mmol/[place] [address] [phone] Potassium 4.6 mmol/L 3.5-5.0 Chloride 104 mmol/L [...] Egfr Non- 72.7 >60 Egfr 93.5 >60 55 Lipid Profile 04/25/2013 [facility] Triglycerides 137 mg/dL 40-200 (Trig/Chol/HDL) [address] [place] [address] [phone] Cholesterol 124 mg/dL Less than 200 HDL Cholesterol 48 mg/dL 40-60 56 Cholesterol/HDL Ratio 2.6 Average 1-4.44 LDL Cholesterol 48.6 Less Than 100 57 Urine Microalbumin 04/25/2013 [facility] Ur Microalbumin 4.0 mg/ L [address] (mg/L) [place] [address] [phone] Urine Creatinine 69.9 mg/dL Urine Microalbumin/Creatinine 5.7 Less Than 31 Laboratory test 12/17/2012 [facility] Hemoglobin A1c 6.4 5-7 finding Cytology Non-Electronic Service Technician 10/14/2012 [facility] Racheal RUN DATE: [address] [place] [address] <SEE NOTE> [phone] Laboratory test 10/14/2012 [facility] TSH (Thyroid 1.45 0.34- 5.[address] Stimulating Horm) MIU/[place] [address] [phone] Liver Function 10/14/2012 [facility] Total Protein 7.1 g/dL 6.2-8.[address] [place] [address] [phone] Albumin 3.9 g/dL 3.2-5.2 Globulin 3.2 g/dL 2-4 Albumin/Globulin Ratio 1.2 1-3 Total Bilirubin 0.5 mg/dL 0.4-1.5 Direct Bilirubin 0.1 mg/dL 0.1-0.5 Indirect Bilirubin 0.4 mg/dL 0.3-1.0 Alkaline Phosphatase 78 U/L 30-110 Alt 75 U/L High 14-54 Ast 69 U/L High 12-42 Laboratory test 09/09/2012 [facility] Hemoglobin A1c 6.8 % High Less than [address] 6[address] [place] [address] [phone] Comp Metabolic 09/09/2012 [facility] Sodium 138 133-[address] mmol/L [place], [place] [address] [phone] Potassium 4.4 mmol/L 3.5-5.0 Chloride 103 mmol/L [...] 1.0 1-3 Total Bilirubin 0.6 mg/dL 0.1-1.0 61 Alkaline Phosphatase 64 U/L 30-110 Alt 68 U/L High 14-54 Ast 64 U/L High 12-42 Egfr Non- 72.9 >60 Egfr 93.8 >60 62 Laboratory test 03/08/2012 [facility] Hemoglobin A1c 6.4 % High Less Than [address] 6[address] [place] [address] [phone] Lipid Profile 03/08/2012 [facility] Triglyceride 124 40-200 (Trig/Chol/HDL) [address] mg/[place] [address] [phone] Cholesterol 129 mg/dL Less Than 200 64 High Density Lipoprotein 50 mg/dL 40-60 65 Cholesterol/HDL Ratio 2.58 AVERAGE 1-4.44 Low Density Lipoprotein 54 mg/dL Less Than 100 66 Comp Metabolic Panel 03/08/2012 [facility] Sodium 137 mmol/L 135-[address] [place] [address] [phone] Potassium 4.4 mmol/L 3.5-5.0 Chloride 105 mmol/L 101-111 Co2 (Carbon Dioxide) 28.0 mmol/L 22-32 Anion Gap 4.0 mmol/L 2-11 67 Glucose 114 mg/dL High 70-100 BUN 11 mg/dL 6-24 Creatinine 0.8 mg/dL 0.50-1.40 One Over Creatinine 1.25 BUN/Creatinine Ratio 13.8 8-20 Calcium 9.2 mg/dL 8.1-9.9 Total Protein 6.6 GM/DL 6.2-8.1 Albumin 3.6 GM/DL 3.2-5.2 Globulin 3.0 GM/DL 2-4 Albumin/Globulin Ratio 1.2 1-3 Bilirubin Total 0.5 mg/dL 0.4-1.5 68 Alkaline Phosphatase 68 U/L 30-110 Alt (SGPT) 56 U/L High 14-54 Ast (Sgot) 46 U/L High 12-42 eGFR Non- 72.9 > 60 eGFR 93.8 > 60 69 Urine Microalbumin 03/08/2012 [facility] Microalbumin (MG/L) 7.0 mg/L Random [address] [place] [address] [phone] Urine Creatinine 124.7 mg/dL Yogesh Alb/Creatinine Ratio 5.6 UG/MG Less Than 30 70 Laboratory test 01/17/2012 [facility] Hepatitis A Positive Negative [address] [place] [address] [phone] Hepatitis B Surface Ag Nonreactive Nonreactive Hepatitis B Core AB, Total Negative Negative 72 Hepatitis C Antibody Nonreactive Nonreactive Ferritin 123 NG/ML 11.0-307 Liver Function 01/17/2012 [facility] Total Protein 7.0 GM/DL 6.2-8.[address] [place] [address] [phone] Albumin 3.6 GM/DL 3.2-5.2 Globulin 3.4 GM/DL 2-4 Albumin/Globulin Ratio 1.1 1-3 Bilirubin Total 0.5 mg/dL 0.4-1.5 73 Bilirubin Direct 0.1 mg/dL 0.1-0.5 Indirect Bilirubin 0.4 mg/dL 0.3-1.0 74 Alkaline Phosphatase 61 U/L 30-110 Alt (SGPT) 52 U/L 14-54 Ast (Sgot) 52 U/L High 12-42 Liver Function 12/13/2011 [facility] Total Protein 6.9 GM/DL 6.2-8.[address] [place] [address] [phone] Albumin 3.7 GM/DL 3.2-5.2 Globulin 3.2 GM/DL 2-4 Albumin/Globulin Ratio 1.2 1-3 Bilirubin Total 0.7 mg/dL 0.4-1.5 75 Bilirubin Direct 0.1 mg/dL 0.1-0.5 Indirect Bilirubin 0.6 mg/dL 0.3-1.0 76 Alkaline Phosphatase 59 U/L 30-110 Alt (SGPT) 55 U/L High 14-54 Ast (Sgot) 46 U/L High 12-42 Laboratory test 11/10/2011 [facility] Hemoglobin A1c 6.6 % High Less Than [address] [place] [address] [phone] CMP Panel 11/10/2011 [facility] Sodium 139 135-[address] DRIVE mmol/L [place], [place] [address] [phone] Potassium 4.3 mmol/L 3.5-5.0 Chloride 102 mmol/L 101-111 Co2 (Carbon Dioxide) 29.0 mmol/L 22-32 Anion Gap 8.0 mmol/L 2-11 78 Glucose 100 mg/dL 70-100 BUN 11 mg/dL 6-24 Creatinine 0.8 mg/dL 0.50-1.40 One Over Creatinine 1.25 BUN/Creatinine Ratio 13.8 8-20 Calcium 9.5 mg/dL 8.1-9.9 Total Protein 7.0 GM/DL 6.2-8.1 Albumin 3.8 GM/DL 3.2-5.2 Globulin 3.2 GM/DL 2-4 Albumin/Globulin Ratio 1.2 1-3 Bilirubin Total 0.6 mg/dL 0.4-1.5 79 Alkaline Phosphatase 60 U/L 30-110 Alt (SGPT) 58 U/L High 14-54 Ast (Sgot) 46 U/L High 12-42 eGFR Non- 72.9 > 60 eGFR 93.8 > 60 80 Urine Culture 10/04/2011 [facility] [address] <SEE NOTE> [place], [place] [id number] [phone] Laboratory 06/12/2011 [facility] TSH 1.15 MIU/ML 0.34 test finding -5.6 [place] [address] [phone] Lipid Profile 05/31/2011 [facility] Triglyceride 95 mg/dL 40- 2 (Trig/Chol/HDL [address] ) [place], [place] [address] [phone] Cholesterol 107 mg/dL Less Than 200 82 High Density Lipoprotein 41 mg/dL 40-60 83 Cholesterol/HDL Ratio 2.61 AVERAGE 1-4.44 Low Density Lipoprotein 47 mg/dL Less Than 100 84 Urine Microalbumin 05/31/2011 [facility] Microalbumin (MG/L) 8.0 mg/L Random [address] [place] [address] [phone] Urine Creatinine 91.30 mg/dL Yogesh Alb/Creatinine Ratio 8.7 UG/MG Less Than 30 85 Laboratory test 05/31/2011 [facility] Hemoglobin A1c 6.8 % High Less Than [address] [place] [address] [phone] Laboratory test 02/28/2011 [facility] TSH 1.07 0.34-5.[address] MIU/[place] [address] [phone] Hemoglobin A1c 7.0 % High Less Than 6.0 87 Urine Microalbumin 09/06/2010 [facility] Microalbumin (MG/L) 3.0 mg/L Random [address] [place] [address] [phone] Urine Creatinine 77.37 mg/dL Yogesh Alb/Creatinine Ratio 3.8 UG/MG Less Than 30 88 Comp Metabolic Panel 09/06/2010 [facility] Sodium 134 mmol/L Low 135-[address] [place] [address] [phone] Potassium 4.6 mmol/L 3.5-5.0 Chloride 101 mmol/L [...] 82.4 > 60 92 Lipid Profile 09/06/2010 [facility] Triglyceride 178 mg/dL 40 -200 (Trig/Chol/HDL) [address] [place] [address] [phone] Cholesterol 127 mg/dL Less Than 200 93 High Density Lipoprotein 41 mg/dL 40-60 94 Cholesterol/HDL Ratio 3.10 AVERAGE 1-4.44 Low Density Lipoprotein 50 mg/dL Less Than 100 95 Laboratory test 09/06/2010 [facility] TSH 1.19 MIU/ML 0.34- 5.[address] [place] [address] [phone] Hemoglobin A1c 6.8 % High Less Than 6.0 96 1 Normal Range 180 to 914 Indeterminate Range 145 to 180 Deficient Range <145 2 Desirable: <150 Borderline High: 150-199 High: 200-499 Very High: >500 3 Desirable: <200 Borderline High: 200-239 High: >239 4 Low: <40 Desirable: 40-60 High: >60 5 Desirable: <100 Near Optimal: 100-129 Borderline High: 130-159 High: 160-189 Very High: >189 6 Because ethnic data is not always readily [...] 15-29 5 Kidney failure <15 (or dialysis) 7 Unable to calculate due to low microalbumin 8 Therapeutic target for the treatment of diabetes mellitus patients is <7% HBA1C, and in selective patients <6.0%. Please refer to [employer] diabetic care guidelines for further information. 9 Therapeutic target for the treatment of diabetes mellitus patients is <7% HBA1C, and in selective patients <6.0%. Please refer to [employer] diabetic care guidelines for further [...] 11 SEE RESULT BELOW Name: MELISSA FUNES Eneida : [address]: Opal Allen MD Acct: [id number] Unit: [id number] AGE: 67 Location: [place] Re02/19/18 SEX: F Status: [facility] SPEC: [id number] EWELINA: 02/19/18-[address]: Opal Allen MD REQ: [id number] RECD: 02/19/18 STATUS: SOUT _ ORDERED: LEVEL [...] serially sectioned from lateral to medial and telemarketing sales representative sections are submitted in cassettes A through H to include duct in cassettes C through E, cyst in cassettes F and G and indurated focus in cassette H. Signed (signature on file) Umesh Le MD [id number] END OF REPORT DEPARTMENT OF PATHOLOGY, [address] [place] [address] Umesh Le M.D. Director [facility] # [id number] 12 Cost Manager: [id number] 13 Therapeutic target for the treatment of diabetes mellitus patients is <7% HBA1C, and in selective patients <6.0%. Please refer to [employer] diabetic care guidelines for further [...] and in selective patients <6.0%.Please refer to [employer] Diabetic care guidelines for further information. 20 Unable to calculate due to low microalbumin 21 Desirable <150 Borderline high 150-199 High 200-499 Very High >500 22 Desirable <200 Borderline high 200-239 High >239 23 Low <40 Desirable: 40-60 High: >60 24 Desirable: <100 mg/dL Near Optimal: 100-129 mg/dL Borderline High: 130-159 mg/dL High: 160-189 mg/dL Very High: >189 mg/dL 25 Because ethnic data is not always readily [...] 15-29 5 Kidney failure <15 (or dialysis) 26 Therapeutic target for the treatment of diabetes Mellitus patients is <7% HBA1C, and in selective patients <6.0%.Please refer to [employer] Diabetic care guidelines for further information. 27 Because ethnic data is not always [...] and in selective patients <6.0%.Please refer to [employer] Diabetic care guidelines for further [...] and in selective patients <6.0%.Please refer to [employer] Diabetic care guidelines for further information. 38 FASTING 39 Therapeutic target for the treatment of diabetes Mellitus patients is <7% HBA1C, and in selective patients <6.0%.Please refer to [employer] Diabetic care guidelines for further information. 40 Because ethnic data is not always readily [...] 15-29 5 Kidney failure <15 (or dialysis) 41 Potassium reference range changed effective 09/10/14 [...] and in selective patients <6.0%.Please refer to [employer] Diabetic care guidelines for further information. 44 Therapeutic target for the treatment of diabetes Mellitus patients is <7% HBA1C, and in selective patients <6.0%.Please refer to [employer] Diabetic care guidelines for further [...] and in selective patients <6.0%.Please refer to [employer] Diabetic care guidelines for further [...] and in selective patients <6.0%.Please refer to [employer] Diabetic care guidelines for further information. 54 Therapeutic target for the treatment of diabetes Mellitus patients is <7% HBA1C, and in selective patients <6.0%.Please refer to [employer] Diabetic care guidelines for further information. 55 Because ethnic data is not always readily [...] 15-29 5 Kidney failure <15 (or dialysis) 56 HDL Interpretation: Undesirable: High Risk: Less than 40 mg/dL Desirable: Low Risk: Greater than 60 mg/dL 57 LDL Interpretation: Low Risk Optimal Level: LDL Less than 100 mg/dL Near or Above Optimal: LDL 100-129 mg/dL Borderline High Risk: LDL 130-159 mg/dL High Risk: LDL 160-189 mg/dL Very High Risk: LDL Greater than 189 mg/dL 58 Microalbuminuria in a random sample is defined as: Microalbumin/Creatinine ratio of 30-299 ug/mg. 59 RUN DATE: 10/14/12 [facility] LAB LIVE PAGE 1 RUN TIME: [address] [place] [id number] Specimen Inquiry Name: RACHELMELISSA Eneida : [address]: Rocky Wolfe MD Acct: [id number] Unit: [id number] AGE: 61 Location: THYROID Re10/14/12 SEX: F Status: REG REF SPEC: [id number] EWELINA: 10/14/12- SUBM DR: Derrick STRANGE, Serge Ramirez REQ: [id number] RECD: 10/14/12 STATUS: UVALDO CHIDL DR: Rocky Wolfe MD ENTERED: 10/14/12 SP [...] performed at Main Lab DEPARTMENT OF PATHOLOGY, [facility] [employer] [place] [address] Umesh Le M.D. Director [facility] Permit #[id number] RUN DATE: 10/14/12 [facility] LAB LIVE PAGE 2 RUN TIME: [address] [facility] [employer] [place], [place] [address] Specimen Inquiry Patient: MELISSA FUNES [id number] (Continued) CLINICAL HISTORY (Continued) CLINICAL HISTORY 1.5 [...] performed at Main Lab DEPARTMENT OF PATHOLOGY, [address] [place] [address] Umesh Le M.D. Director [facility] Permit #[id number] Therapeutic target for the treatment of diabetes Mellitus patients is <7% HBA1C, and in selective patients <6.0%.Please refer to [employer] Diabetic care guidelines for further information. 61 A metabolite of Naproxen, O-desmethylnaproxen, has been shown to interfere with the Jendrassik-Rentchler method for measuring total bilirubin. Samples from patients who have taken Naproxen have shown spurious elevation in total bilirubin levels. 62 Because ethnic data is not always readily [...] 15-29 5 Kidney failure <15 (or dialysis) 63 THERAPEUTIC TARGET FOR THE TREATMENT OF DIABETES MELLITUS PATIENTS IS <7% HBA1C, AND IN SELECTIVE PATIENTS <6.0%. PLEASE REFER TO [place] [employer] DIABETIC CARE GUIDELINES FOR FURTHER INFORMATION. 64 CHOLESTEROL INTERPRETATION: Desirable: Less than 200 MG/DL Borderline-High Risk: 200-239 MG/DL High-Risk: 240 MG/DL and over 65 HDL INTERPRETATION: Undesirable: High Risk: Less than 40 MG/DL Desirable: Low Risk: Greater than 60 MG/DL 66 LDL INTERPRETATION: Low Risk Optimal Level: LDL Less than 100 MG/DL Near or Above Optimal: LDL 100-129 MG/DL Borderline High Risk: LDL 130-159 MG/DL High Risk: LDL 160-189 MG/DL Very High Risk: LDL Greater than 189 MG/DL 67 Anion gap measurement may be of limited value in the presence of any alkalosis, especially in a combined acid base disorder. . 68 A metabolite of Naproxen, O-desmethylnaproxen, has been shown to interfere with the Jendrassik-Rentchler method for measuring total bilirubin. Samples from patients who have taken Naproxen have shown spurious elevation in total bilirubin levels. 69 Because ethnic data is not always readily [...] 15-29 5 Kidney failure <15 (or dialysis) 70 MICROALBUMINURIA IN A RANDOM SAMPLE IS DEFINED : MICROALBUMIN/CREATININE RATIO OF 30-299 ug/mg. . 71 Test Performed by: [facility] Dpt of Lab Med and Pathology [address] [place] [address] Wedding Planner: Davey Valdivia III, M.D. 72 Test Performed by: [facility] Dpt of Lab Med and Pathology [address] [place] [address] Wedding Planner: Davey Valdivia III, M.D. 73 A metabolite of Naproxen, O-desmethylnaproxen, has been shown to interfere with the Jendrassik-Carlos method for measuring total bilirubin. Samples from patients who have taken Naproxen have shown spurious elevation in total bilirubin levels. 74 Please note updated reference range, effective 05/30/10 75 A metabolite of Naproxen, O-desmethylnaproxen, has been shown to interfere with the Jendrassik-Rentchler method for measuring total bilirubin. Samples from patients who have taken Naproxen have shown spurious elevation in total bilirubin levels. 76 Please note updated reference range, effective 05/30/10 77 THERAPEUTIC TARGET FOR THE TREATMENT OF DIABETES MELLITUS PATIENTS IS <7% HBA1C, AND IN SELECTIVE PATIENTS <6.0%. PLEASE REFER TO [employer] DIABETIC CARE GUIDELINES FOR FURTHER INFORMATION. 78 Anion gap measurement may be of limited value in the presence of any alkalosis, especially in a combined acid base disorder. . 79 A metabolite of Naproxen, O-desmethylnaproxen, has been shown to interfere with the Jendrassik-Rentchler method for measuring total bilirubin. Samples from patients who have taken Naproxen have shown spurious elevation in total bilirubin levels. 80 Because ethnic data is not always readily [...] 15-29 5 Kidney failure <15 (or dialysis) 81 RUN DATE: 10/06/11 [facility] NMI LIVE PAGE 1 RUN TIME: 1032 Specimen Inquiry RUN USER: INTERFACE Name: MELISSA FUNES Status: DEP CLI Re10/04/11 Age/Sex: 60/F Unit#: [id number] Location: [facility] : 50 SPEC #: [id number] EWELINA: 10/04/11 STATUS: DARNELL REQ #: [id number] RECD: 10/04/[address]: Gregoria Ortiz MD SOURCE: URINE ENTR: 10/04/[address]: Deo STRANGE, Padma Fitch [facility]: ORDERED: URINE C S QUERIES: SPECIMEN DESCRIPTION: [...] *These antibiotics are not available in the [facility] Formulary. Contact the Microbiology Department for any additional antibiotic reporting. - [facility] State Permit #[id number] [facility] [employer] [facility] [address] DEPARTMENT OF PATHOLOGY, [facility] [employer] [place], [place] [address] [facility] Permit #[id number] Umesh Le M.D. Director Felicitas Cueva M.D. Stationary Equipment Mechanic 82 CHOLESTEROL INTERPRETATION: Desirable: Less than 200 MG/DL Borderline-High Risk: 200-239 MG/DL High-Risk: 240 MG/DL and over 83 HDL INTERPRETATION: Undesirable: High Risk: Less than 40 MG/DL Desirable: Low Risk: Greater than 60 MG/DL 84 LDL INTERPRETATION: Low Risk Optimal Level: LDL Less than 100 MG/DL Near or Above Optimal: LDL 100-129 MG/DL Borderline High Risk: LDL 130-159 MG/DL High Risk: LDL 160-189 MG/DL Very High Risk: LDL Greater than 189 MG/DL 85 MICROALBUMINURIA IN A RANDOM SAMPLE IS DEFINED : MICROALBUMIN/CREATININE RATIO OF 30-299 ug/mg. . 86 THERAPEUTIC TARGET FOR THE TREATMENT OF DIABETES MELLITUS PATIENTS IS <7% HBA1C, AND IN SELECTIVE PATIENTS <6.0%. PLEASE REFER TO [place] DIABETIC CARE GUIDELINES FOR FURTHER INFORMATION. 87 THERAPEUTIC TARGET FOR THE TREATMENT OF DIABETES MELLITUS PATIENTS IS <7% HBA1C, AND IN SELECTIVE PATIENTS <6.0%. PLEASE REFER TO [employer] DIABETIC CARE GUIDELINES FOR FURTHER INFORMATION. 88 MICROALBUMINURIA IN A RANDOM SAMPLE IS DEFINED : MICROALBUMIN/CREATININE RATIO OF 30-299 ug/mg. . 89 Anion gap measurement may be of limited value in the presence of any alkalosis, especially in a combined acid base disorder. . 90 Note change in reference range as of 06/29/08. The change was based on recommendations from the [employer]. 91 A metabolite of Naproxen, [...] IN SELECTIVE PATIENTS <6.0%. PLEASE REFER TO [employer] DIABETIC CARE GUIDELINES FOR FURTHER INFORMATION. Procedures Date Code Description Status 06/30/201861982 Inject/Drain Joint/Bursa Major W/O US Completed 05/11/2018 719559326 Diabetic Retinal Eye Exam Completed 03/24/201888536 Inject/Drain Joint/Bursa Major W/O US Completed 02/19/2018 68047 Nipple Exploration Completed 12/11/2017 [id number] Mammogram Completed 10/16/2017 [id number] Diabetic Retinal Eye Exam Completed 04/14/2017 [id number] Diabetic Retinal Eye Exam Completed 10/31/2016 89878808 Mammogram Completed 10/09/2016 [id number] Diabetic Retinal Eye Exam Completed 06/11/2016 786663027 Bone Mineral Density Test Completed 2015 [id number] Mammogram Completed 09/20/2015 [id number] Diabetic Retinal Eye Exam Completed 09/19/2014 [id number] Diabetic Retinal Eye Exam Completed 08/31/2014 66573091 Mammogram Completed 09/30/2013 [id number] Diabetic Retinal Eye Exam Completed 07/14/2013 21750809 Mammogram Completed 09/10/2012 790975028 Diabetic Retinal Eye Exam Completed 05/18/2012 21312 EKG Tracing & Interpretation Completed 03/30/2012 20210863 Mammogram Completed 06/19/2011 05782 Holter Monitor Completed 06/12/2011 19317 EKG Tracing & Interpretation Completed 03/20/2011 42185016 Colonoscopy Completed 11/05/2010 87589352 Mammogram Completed 11/05/2010 924735398 Bone Mineral Density Test Completed 06/15/2009 48964 EKG Tracing & Interpretation Completed 06/07/2008 22357 EKG Tracing & Interpretation Completed 01/31/2008 47800 EKG, Interpretation Only Completed 01/31/2008 28283 EKG, Interpretation Only Completed 01/25/2007 74713 EKG Tracing & Interpretation Completed 12/03/2005 [id number] Mammogram Completed Encounters Type Date Location Provider Dx Diagnosis Office Visit 05/31/2018 Orthopedic Danica Stoddard M17.12 Unilateral primary 9:00a [facility] osteoarthritis, left knee M25.562 Pain in left knee M25.462 Effusion, left knee Office Visit 03/02/2018 9:00a [facility] Internal Padma E11.9 Type 2 diabetes Douglas Desouza M.D. mellitus without [facility] complications R74.0 Nonspec elev of levels of transamns & lactic acid dehydrgnse M25.562 Pain in left knee I10 Essential (primary) hypertension E78.5 Hyperlipidemia, unspecified Office Visit 02/02/2018 10:15a Surgical Opal Ruperto N64.52 Nipple discharge [facility] MD Office Visit 12/21/2017 8:00a Orthopedic Danica Stoddard M17.12 Unilateral [facility] primary C.MCarolyneACarolyne osteoarthritis, left knee M25.562 Pain in left knee M25.462 Effusion, left knee Office Visit 11/27/2017 8:40a [facility] Internal Padma I10 Essential ( primary) Douglas Desouza M.D. hypertension [place] N64.52 Nipple discharge E11.9 Type 2 diabetes mellitus without complications M25.562 Pain in left knee Office Visit 10/08/2017 8:00a Pulmonology And Sleep Araceli Wolf MD R05 Cough [facility] R06.83 Snoring R06.00 Dyspnea, unspecified R53.83 Other fatigue Office Visit 09/24/2017 10:20a [facility] Internal Padma E11.9 Type 2 diabetes Douglas Desouza M.D. mellitus without Kountze complications I10 Essential (primary) hypertension F32.89 Other specified depressive episodes Office Visit 07/17/2017 8:40a [facility] Internal Nadiya Nguyen, F32.9 Major depressive Medicine - N.P. disorder, single Kountze episode, unspecified R05 Cough Z23 Encounter for immunization Office Visit 06/16/2017 11:40a [facility] Internal Nadiya Nguyen, J06.9 Acute upper Medicine - N.P. respiratory Kount[place] infection, unspecified F32.9 Major depressive disorder, single episode, unspecified Office Visit 10/06/2016 8:40a [facility] Internal Padma E11.9 Type 2 diabetes Douglas Desouza M.D. mellitus without Kountze complications I10 Essential (primary) hypertension E78.2 Mixed hyperlipidemia R05 Cough Z12.31 Encntr screen mammogram for malignant neoplasm of breast Z23 Encounter for immunization Office Visit 01/17/2016 3:40p [facility] Internal Padma S61.311D Laceration w/o Douglas Desouza M.D. fb of l idx fngr Kountze w damage to nail, subs Office Visit 01/15/2016 11:40a [facility] Internal Master Cain NP S61.311D Laceration w/o Medicine - fb of l idx fngr Kountze w damage to nail, subs Office Visit 10/02/2015 4:00p [facility] Internal Padma Z00.00 Encntr for Douglas Desouza M.D. general adult K[place] medical exam w/o abnormal findings E11.9 Type 2 diabetes mellitus without complications I10 Essential (primary) hypertension M77.11 Lateral epicondylitis, right elbow Z12.31 Encntr screen mammogram for malignant neoplasm of breast Z23 Encounter for immunization Office Visit 04/09/2015 11:00a [facility] Internal Padma 250.00 Julianna Desouza M.D. Mellitus W/O [place] Compl Type II Or Unspec Controlled 401.1 Hypertension Benign 790.4 Transaminase Or Lactic Acid Dehydrogenase Elevation Nonspec Office Visit 12/25/2014 2:00p Orthopedic Teresa Nguyen, 727.41 Ganglion Joint [facility] Wasserman 715.14 Osteoarthrosis Localized Prim Hand Office Visit 11/21/2014 4:30p [facility] Internal Master Cain NP 727.49 Cyst Synovial Medicine - Other Kountze Office Visit 09/26/2014 3:00p [facility] Internal Padma V70.0 Examination Douglas Desouza M.D. [facility] Charlie Routine AT Health Care Facility 250.00 Diabetes Mellitus W/O Compl Type II Or Unspec Controlled 401.1 Hypertension Benign 790.4 Transaminase Or Lactic Acid Dehydrogenase Elevation Nonspec V04.81 Need For Prophylactic Vaccination & Inoculation/Influenza Office Visit 04/05/2014 9:00a [facility] Padma 250.00 Julianna Desouza M.D. Mellitus W/O [place] Compl Type II Or Unspec Controlled 401.1 Hypertension Benign 790.4 Transaminase Or Lactic Acid Dehydrogenase Elevation Nonspec Office Visit 12/21/2013 9:40a [facility] Padma 790.4 Transaminase Or Douglas Desouza M.D. Lactic Acid [place] Dehydrogenase Elevation Nonspec 250.00 Diabetes Mellitus W/O Compl Type II Or Unspec Controlled 401.1 Hypertension Benign Office Visit 11/15/2013 11:00a [facility] Internal Padma 250.00 Julianna Desouza M.D. Mellitus W/O [place] Compl Type II Or Unspec Controlled 401.1 Hypertension Benign 790.4 Transaminase Or Lactic Acid Dehydrogenase Elevation Nonspec 787.1 Heartburn 782.1 Rash & Other Nonspec Skin Eruption Office Visit 08/15/2013 1:20p [facility] Internal Padma 250.00 Julianna Desouza M.D. Mellitus W/O Kountze Compl Type II Or Unspec Controlled 401.1 Hypertension Benign v04.81 Need For Prophylactic Vaccination & Inoculation/Influenza 787.02 Nausea Alone Office Visit 05/10/2013 9:20a [facility] Internal Padma V70.0 Examination Douglas Desouza M.D. [facility] Routine AT Health Care Facility V72.31 Routine Electronic Service Technician Examination V76.10 Screening For Malignant Neoplasm Breast 250.00 Diabetes Mellitus W/O Compl Type II Or Unspec Controlled 401.1 Hypertension Benign 571.8 Liver Disease Chronic Nonalcoholic Other 246.9 Thyroid Disorders Unspec Office Visit 03/23/2013 3:00p [facility] Nurse Visit A 401.1 Hypertension Medicine - Benign Kountze Office Visit 12/17/2012 9:00a [facility] Internal Padma 250.00 Diabetes Mellitus Douglas Desouza M.D. W/O Compl Type II Kountze Or Unspec Controlled 571.8 Liver Disease Chronic Nonalcoholic Other 401.1 Hypertension Benign Office Visit 09/16/2012 9:20a [facility] Internal Padma 250.00 Julianna Desouza M.D. Mellitus W/O [place] Compl Type II Or Unspec Controlled 401.1 Hypertension Benign 790.4 Transaminase Or Lactic Acid Dehydrogenase Elevation Nonspec 246.9 Thyroid Disorders Unspec V04.81 Need For Prophylactic Vaccination & Inoculation/Influenza V06.1 Pdpzhzzjmx-Rbvnrdb-Gdajrroa Combined (DTaP) Office Visit 06/11/2012 12:40p [facility] Internal Medicine Daisy Hugo M.D. 786.2 Cough [place] 246.9 Thyroid Disorders Unspec Office Visit 05/18/2012 4:00p [facility] Internal Viry Hugo 786.2 Cough Medicine Daisy Garciantwood Office Visit 03/16/2012 9:00a [facility] Padma V70.0 [facility] Douglas Desouza M.D. [facility] Routine AT Health Care Facility V72.31 Routine Electronic Service Technician Examination V76.10 Screening For Malignant Neoplasm Breast 250.00 Diabetes Mellitus W/O Compl Type II Or Unspec Controlled 401.1 Hypertension Benign 790.4 Transaminase Or Lactic Acid Dehydrogenase Elevation Nonspec Office Visit 11/13/2011 11:00a [facility] Internal Padma 250.00 Julianna Desouza M.D. Mellitus W/O Kountze Compl Type II Or Unspec Controlled 401.1 Hypertension Benign 272.0 Hypercholesterolemia Pure 790.4 Transaminase Or Lactic Acid Dehydrogenase Elevation Nonspec Office Visit 10/29/2011 10:00a DO Not Use Nadiya Nguyen, 461.9 Sinusitis [facility] N.P. Unspec v05.3 Viral Hepatitis Vaccination & Inoculation Office Visit 10/15/2011 DO Not Use Nadiya Nguyen, 599.0 UTI Urinary Tract 9:40a Magdiel-Kount[facility] N.P. 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 Plantar Fascia Office Visit 10/16/2009 DO Not [...] And Fatigue Other Plan of Treatment Future Appointment(s):06/30/2019 11:00 am - Padma Desouza M.D. at [facility] Internal Medicine [facility]02/18/2019 9:00 am - Padma Desouza M.D. at [facility] Internal Medicine [facility]10/27/2018 8:00 am - Danica Stoddard M.D. at [facility]/16/2018 7:30 am - Danica Stoddard M.D. at [facility]10/21/2018 - Padma Desouza M.D.Z01.818 Encounter for other preprocedural examinationComments:Stop aspirin 2 weeks prior to surgeryStop all supplements 1 week priorStop all NSAIDs ( ibuprofen, Motrin, Advil, Aleve, naproxen )Tylenol is fineOn the morning of surgery, take your losartan/ hydrochlorothiazide with a sip of wmgjzT14.9 Type 2 diabetes mellitus without complicationsNew Labs:Hemoglobin A1c, Ordered: 10/21/18Comments :Your A1C is 6.4 which is great!Follow up:move the dec appt to February, in Essential (primary) hypertensionNew Orders:EKG, Ordered: 10/21/18G47.33 Obstructive sleep apnea (adult) (pediatric)New Orders:Cpap Machine And Supplies , Ordered: 10/21/18Comments:Use CPAP while on narcotic medication (oxycodone, hydrocodone, hydromorphone and others)
[2018-11-16] MEDS ORDERED: Clindamycin 900 MG/D5W BAG(*) 900 MG/50 ML BAG IVPB ONE (06:46)
[2018-11-16] MEDS ORDERED: Bupivacaine 0.5%* 50 ML VIAL ONE (06:51)
[2018-11-16] MEDS: Lactated Ringers 1000 ML Bag* 1,000 ML IV SCH ×2 (07:10→14:57)
[2018-11-16] MEDS ORDERED: Lidocaine 2% PF * 5 ML VIAL ONE ×3 (07:28→08:33)
[2018-11-16] MEDS ORDERED: fentaNYL* 50 MCG/ML 2 ML VIAL (100 MCG VIAL) ONE (07:29)
[2018-11-16] MEDS ORDERED: Midazolam* 1 MG/ML 2 ML VIAL (2 MG) ONE ×3 (07:29→09:12)
[2018-11-16] MEDS ORDERED: ROPIVACAINE 5 MG/ML 30 ML BTL (0.5%) ONE ×2 (07:29→10:31)
[2018-11-16] MEDS ORDERED: EPINEPHRINE 1 MG/ML 1 ML VIAL ONE ×2 (07:30→10:31)
[2018-11-16] MEDS ORDERED: Dexamethasone IV* 4 MG/ML 1 ML (4 MG) ONE ×2 (07:30→10:31)
[2018-11-16] MEDS ORDERED: Bupivacaine 0.5% SDV PF* 30ML VIAL ONE (07:32)
[2018-11-16] MEDS ORDERED: KETAMINE HCL* 50 MG/ML 10 ML VIAL ONE (08:09)
[2018-11-16] MEDS ORDERED: Propofol* 500 MG/50 ML BTL ONE ×2 (08:09→09:47)
[2018-11-16] MEDS ORDERED: Acetaminophen TAB* 325 MG PO PRN (08:58)
[2018-11-16] MEDS ORDERED: Ondansetron ODT TAB* 4 MG PO PRN (08:58)
[2018-11-16] MEDS ORDERED: Ketorolac INJ* 30 MG/ML 1 ML VIAL IV PRN (08:58)
[2018-11-16] MEDS ORDERED: Naloxone* 0.4 MG/ML 1 ML VIAL IV PRN (08:58)
[2018-11-16] MEDS ORDERED: Scopolamine 1.5 mg* PATCH TRANSDERM PRN (08:58)
[2018-11-16] MEDS ORDERED: HYDROmorphone INJ1* 1 MG/ML SYRINGE IV PRN (08:58)
[2018-11-16] MEDS ORDERED: Bisacodyl SUPP* 10 MG SUPP PR PRN (10:35)
[2018-11-16] MEDS ORDERED: traMADol TAB* 50 MG PO PRN (10:35)
[2018-11-16] MEDS ORDERED: Polyethylene Glycol 3350* 17 GM PACKET PO PRN (10:35)
[2018-11-16] MEDS ORDERED: Ondansetron INJ* 2 MG/ML VIAL IV PRN (10:35)
[2018-11-16] MEDS ORDERED: Morphine VIAL* 4 MG/ML VIAL (1 ml vial) IV PRN (10:35)
[2018-11-16] MEDS ORDERED: oxyCODONE/Acetamin 5/325 MG* TAB PO PRN (10:35)
[2018-11-16] MEDS ORDERED: Cyclobenzaprine TAB* 10 MG PO PRN (10:35)
[2018-11-16] MEDS ORDERED: diPHENhydraMINE IV* 50 MG/ML 1 ml VIAL (BENADRYL) IV PRN (10:35)
[2018-11-16] MEDS ORDERED: Magnesium Hydroxide LIQ* 30 ML UDC PO PRN (10:35)
[2018-11-16] MEDS ORDERED: Scopolamine 1.5 mg* PATCH ONE (10:51)
[2018-11-16] MEDS ORDERED: Lactated Ringers 1000 ML Bag* 1,000 ML IV SCH (11:00)
[2018-11-16] MEDS ORDERED: Acetaminophen TAB* 325 MG PO SCH (11:00)
[2018-11-16] MEDS ORDERED: Ketorolac INJ* 30 MG/ML 1 ML VIAL ONE (12:03)
[2018-11-16] MEDS ORDERED: Ondansetron ODT TAB* 4 MG ONE (12:03)
[2018-11-16] MEDS ORDERED: oxyCODONE TAB* 5 MG TAB ONE ×2 (13:36→14:34)
[2018-11-16] MEDS: oxyCODONE TAB* 5 MG TAB PO PRN ×3 (13:40→19:04)
[2018-11-16] MEDS ORDERED: Acetaminophen TAB* 325 MG ONE (13:56)
--- NOTE | 2018-11-16 15:45 | PN ---
Progress Note - Progress Note Date of Service: 11/16/18 Note: restinf comfortably in bed. pain controlled with current pain regimen. able to dorsi flex/plantar flex, 2+ DP pulse and intact sensation
[2018-11-16] MEDS: Clindamycin 600 MG IVPREMIX(* 600 MG/50 ML SDV IV SCH (16:58)
[2018-11-16] MEDS ORDERED: Warfarin TAB(*) 6 MG PO ONE (17:00)
[2018-11-16] MEDS ORDERED: Dextrose 50% Syringe 50 ML* 25 GM/50 ML SYRINGE IV PUSH PRN (19:47)
[2018-11-16] MEDS ORDERED: PTO: Metformin ER (NF) 500 MG TAB PO SCH (21:00)
[2018-11-16] MEDS: Magnesium Hydroxide LIQ* 30 ML UDC PO SCH (21:16)
[2018-11-16] MEDS: Atorvastatin* 10 MG TAB PO SCH (21:16)
[2018-11-16] MEDS: Docusate CAP* 100 MG PO SCH (21:16)
[2018-11-16] MEDS: Acetaminophen TAB* 325 MG PO SCH (21:22)
[2018-11-16] MEDS: oxyCODONE/Acetamin 5/325 MG* TAB PO PRN (21:29)
--- NOTE | 2018-11-16 22:47 | OP ---
DATE OF OPERATION: 11/16/18 - ROOM #341 DATE OF : 50 SURGEON: Danica Stoddard MD. CASE MANAGER: SANTANA Gutierres. Ms. Ji did help throughout the procedure with preparation of the leg, wound retraction, manipulation of the knee, and wound closure. ANESTHESIOLOGIST: Dr. Lees. ANESTHESIA: Spinal. PRE-OP DIAGNOSIS: Severe endstage degenerative osteoarthritis of the left knee joint. POST-OP DIAGNOSIS: Severe endstage degenerative osteoarthritis of the left knee joint. OPERATIVE PROCEDURE: Left total knee arthroplasty. TOURNIQUET TIME: 53 minutes. COMPLICATIONS: None. SPECIMENS: Bone and cartilage from the left knee joint sent to Pathology. ESTIMATED BLOOD LOSS: 200 cc. HARDWARE USED: This is cemented [employer] total knee arthroplasty hardware. Two packages of Simplex bone cement. For the femur, a left size 4 posterior stabilized Legion narrow femoral component. For the tibia, a size 3 left Rachelle II tibial baseplate. For the insert, a 9-mm posterior stabilized articular insert, size 3-4. For the patella, a 29-mm 3-peg all poly patella with 7.5 thickness. BRIEF HISTORY/INDICATIONS: Ms. Funes is a 68-year-old female. She has had years of increasingly severe left knee pain. She failed conservative treatment with antiinflammatories, pain medication, intraarticular injections, and physical therapy. Due to continued pain and decreased quality of life, she elected to undergo a left total knee arthroplasty. Radiographs showed bone-on- bone arthritis. Informed consent was obtained from the patient. She under- stood the risks of surgery included, but were not limited to bleeding, infection , damage to nearby structures, continued pain, need for further surgery, intraoperative fracture, nerve palsy, hardware failure or loosening, knee stiffness, loss of motion, stroke, heart attack, blood clot, and . She wished to proceed. INTRAOPERATIVE FINDINGS: Intraoperatively, she was found to have extensive osteophyte formation and complete loss of cartilage along the medial and patellofemoral compartments. DESCRIPTION OF PROCEDURE: Ms. Funes was identified in the preanesthesia unit. Her left lower extremity was marked as the correct operative site. Informed consent was signed and placed in the chart. The patient was taken to the operating room and placed under spinal anesthesia. A Price catheter was placed. Tourniquet was placed on the left thigh. Left lower extremity was prepped and draped in the usual sterile fashion. Preop time-out was made to correctly identify the patient side and site. Appropriate perioperative antibiotics were given within 1 hour of incision. Tourniquet was inflated and total tourniquet time for this procedure was 53 minutes. A midline incision was made with a 10-blade and carried down to the extensor mechanism. A new 10-blade was used to make a standard medial parapatellar arthrotomy. The patella was subluxed laterally. Electrocautery was used to subperiosteally elevate soft tissue off the superomedial tibia to the mid sagittal plane. The knee was flexed up. The anterior horn of the lateral meniscus and ACL were sharply released. A drill was used to enter the distal femur. Intramedullary distal cutting guide was pinned on the distal femur and oscillating saw was used to make the distal femoral cut. Next, the external rotation guide was pinned on the distal femur. Distal femur was sized to a size 4. Size 4 multi-cutting jig was pinned on the distal femur. Oscillating saw was used to make the appropriate 4 chamfer cuts. The PCL was completely released. Tibia was subluxed anteriorly. Extramedullary tibial cutting guide was pinned on the proximal tibia. Oscillating saw was used to make the proximal tibial cut perpendicular to the mechanical axis of the tibia. The bone was carefully removed. The knee was brought out into full extension. A spacer block had good fit with the knee in full extension. Medial and lateral ligaments were well balanced. Flexion and extension gaps were well balanced. The knee was flexed up. A lamina internal auditor was placed both medially and laterally. Any remaining meniscus was carefully removed using electrocautery. Curved osteotome was used to remove any posterior osteophytes. Tibial tray and drop ailyn were placed and once again confirmed a satisfactory tibial cut. A size 3 narrow left femoral trial was impacted onto the distal femur and had excellent fit and stability. The box for the posterior stabilized implant was prepared using a reamer and box cut osteotome. Size 3 tibial tray trial with a 9-mm insert trial was placed and the knee was taken through a range of motion. There was full extension to a 130 degrees of flexion with satisfactory patellofemoral tracking. The patella was everted. Then 7 mm of patellar bone and cartilage was carefully removed using an oscillating saw. The patella was sized to a size 29. Three peg holes were drilled through the size 29 guide. A 29 trial patella with 7.5 thickness was placed and the knee was taken through a range of motion. There was satisfactory patellofemoral tracking. All trials were carefully removed. The tibia was subluxed anteriorly and sized to a size 3. Proximal tibia was prepared using a size 3 keel punch. All bony cut surfaces were copiously irrigated with sterile saline and dried. Final implants were cemented into place starting with the tibia, followed by the femur, and lastly the patella. A 9-mm insert trial was placed while the knee was brought out into full extension. Tourniquet was turned down at 53 minutes. The knee was copiously irrigated with sterile saline. Electrocautery was used to obtain meticulous hemostasis. Once the cement had fully cured, the insert trial was removed. Any excess cement was removed from around the capsule and hardware. Final insert chosen was a 9-mm posterior stabilized articular insert, size 3-4. This was locked into position on the tibial tray. Stability of the insert was checked and rechecked and noted to be stable. The extensor mechanism was closed using interrupted #1 Vicryl. The rest of the incision was closed in a layered fashion using 0 and 2-0 Vicryl. Skin was closed using running 3-0 nylon suture. Sterile Xeroform, 4x4s, and Webril were used to cover the incision. Byron wrap and cold pack were placed over this. The patient's anesthesia was reversed without difficulty. She was taken to the PACU in stable condition. Intended weightbearing will be weightbearing as tolerated. Intended DVT prophylaxis will be Coumadin with a Lovenox bridge. [id number]/[facility] #: [id number] [facility] HOSPITALBandar
[2018-11-17] MEDS: Clindamycin 600 MG IVPREMIX(* 600 MG/50 ML SDV IV SCH ×2 (00:34→08:15)
[2018-11-17] MEDS: oxyCODONE TAB* 5 MG TAB PO PRN ×4 (00:35→16:43)
--- NOTE | 2018-11-17 01:07 | CONS ---
[facility] MEDICINE CONSULTATION REPORT: DATE OF CONSULT: 11/16/18 PROVIDER: Nubia Morocho NP ATTENDING PHYSICIAN: Dr. Stoddard. CONSULTING PHYSICIAN: Dr. Janey Betts (dictated by Nubia Morocho NP). REASON FOR CONSULT: Co-management of chronic medical conditions. HISTORY OF PRESENT ILLNESS: Ms. Funes is a 68-year-old female with past medical history significant for diabetes, hypertension, hyperlipidemia, and sleep apnea, who presented to [facility] for an elective left total knee arthroplasty with Dr. Stoddard. Please refer to H and P from SANTANA Gutierres for complete details. In brief, the patient had continued complaints of left knee pain and failed conservative treatment and elected to proceed with left total knee arthroplasty with Dr. Stoddard. In the immediate postoperative period, the patient has mild complaints of left knee pain. Due to her hypertension and diabetes, we were asked to see and consult on the patient. PAST MEDICAL HISTORY: Significant for: 1. Diabetes. 2. Hypertension. 3. Hyperlipidemia. 4. Sleep apnea. PAST SURGICAL HISTORY: 1. Hysterectomy. 2. Partial thyroidectomy. 3. . 4. D and C. 5. Left breast ductal excision. 6. Cholecystectomy. HOME MEDICATIONS: 1. Trulicity 0.75 injection once weekly. 2. Atorvastatin 10 mg p.o. daily. 3. Losartan/hydrochlorothiazide 50/12.5 mg p.o. daily. 4. Metformin 500 mg 3 tablets once daily. 5. Aspirin 81 mg daily. ALLERGIES: PENICILLIN, SULFITES, CECLOR, and ELECTRODE PATCHES. FAMILY HISTORY: Mother with a history of pacemaker. Grandmother with a history of diabetes. No reported history of cancer. SOCIAL HISTORY: The patient denies ever smoking. She does report occasional alcohol use. Denies any illicit drug use. Surrogate decision maker is her daughter. She is a full code. REVIEW OF SYSTEMS: General: The patient denies any fever, chills, or unintended weight loss. Cardiac: Denies any chest pain or edema. Respiratory: Denies any cough, congestion, or hemoptysis. Denies any shortness of breath. GI: Denies any nausea, vomiting, diarrhea, or abdominal pain. : Denies any urinary frequency, urgency, or any dysuria. Neurologic: She denies any focal weakness or sensory loss. She denies any visual complaints. Denies any dysphagia. Denies any arthralgias or myalgias. No rashes or lesions. Denies depression or anxiety. PHYSICAL EXAM: Vital Signs: Blood pressure 128/60, temperature 97.7, heart rate 61, respirations 16, O2 saturation 100% on room air. General: Ms. Funes is alert and oriented, sitting in a chair in her room. She does not appear to be in any acute distress. HEENT: Head is atraumatic, normocephalic. Eyes: EOMs are intact. Sclerae are anicteric, not pale. Oral mucosa appears to be moist. Neck is supple. Lungs are clear to auscultation bilaterally. No wheezes, rales, or rhonchi. Cardiac: S1, S2. Regular rate and rhythm. Abdomen is soft and nontender. Bowel sounds are present x4. Extremities: Pedal pulses are +2 bilaterally. Sensation is intact in bilateral lower extremities. She does have a dressing intact to her left knee with Byron wrap dry and intact. Neurologic: She is awake, alert, and oriented x3. Speech is clear. No gross focal deficits are noted. Skin: She does have a dressing dry and intact to her left knee. LABORATORY DATA: WBCs on 11/04/18 were 6.5, RBCs 4.11, hemoglobin 12.2, hematocrit was 37, platelet count was 226. INR on 11/04/18 was 0.90. Sodium was 138, potassium 4.3, chloride 101, carbon dioxide was 31, anion gap was 6, BUN was 13, creatinine 0.81, glucose was 109. ASTs were 31, ALTs were 37, alkaline phosphatase was 78. Albumin was 4.1. IMPRESSION AND PLAN: Ms. Funes is a 68-year-old female with past medical history significant for diabetes, hypertension, hyperlipidemia, and sleep apnea , who presented for elective left total knee arthroplasty with Dr. Stoddard. In the immediate postoperative period, she has mild discomfort to her left knee that is being controlled by current pain management. Our recommendations are as follows: 1. Status post left total knee arthroplasty management per Orthopedics. DVT prophylaxis per Orthopedics. PT/OT per Orthopedics. Bowel regimen per Orthopedics. 2. Hypertension. At this time, I would hold her hydrochlorothiazide and continue her losartan as long as her systolic blood pressure is greater than 120. 3. Diabetes. I would hold her metformin at this time and start her on fingersticks a.c. with lispro sliding scale. She can resume her metformin at discharge. 4. Hyperlipidemia. She should continue on her atorvastatin as previously prescribed. 5. Sleep apnea. She should use her CPAP machine at night. 6. Diet: I would recommend a consistent carbohydrate diet. 7. DVT prophylaxis: Per Orthopedics. 8. Code status: She is a full code. TIME SPENT: Time spent on this consultation was 45 minutes reviewing events leading thus far to her hospitalization, performing my physical exam, and reviewing my plan of care. I have discussed this with my attending, Dr. Janey Betts, and she is in agreement with my plan. NUBIA MOROCHO, MATIAS [id number]/[facility] #: [id number] MICHAEL
[2018-11-17] MEDS: oxyCODONE/Acetamin 5/325 MG* TAB PO PRN ×4 (03:55→19:02)
[2018-11-17] MEDS: Acetaminophen TAB* 325 MG PO SCH ×3 (06:04→20:38)
[2018-11-17 06:06] LABS: Hematocrit 29 % (35-47); Mean Platelet Volume 9.6 fL (7.4-10.4); Platelet Count 173 10^3/ul (150-450)
[2018-11-17 06:09] LABS: INR 1.06 (0.77-1.02)
[2018-11-17 06:27] LABS: BUN/Creatinine Ratio 21.8 (8-20); Calcium 8.1 mg/dL (8.6-10.3); EGFR Non-African American 73.4 (>60); Potassium 3.9 mmol/L (3.5-5.0)
[2018-11-17] MEDS: Insulin LISPRO* 1 UNITS UNIT SUBCUT SCH ×3 (07:14→17:50)
[2018-11-17] MEDS: Magnesium Hydroxide LIQ* 30 ML UDC PO SCH ×2 (08:16→20:36)
[2018-11-17] MEDS: Losartan TAB* 25 MG PO SCH (08:17)
[2018-11-17] MEDS: Docusate CAP* 100 MG PO SCH ×2 (08:17→20:35)
[2018-11-17] MEDS: Enoxaparin(*) 40 MG/0.4 ML SYR SUBCUT SCH (08:18)
--- NOTE | 2018-11-17 08:28 | PN ---
Progress Note - Progress Note Date of Service: 11/17/18 SOAP: Subjective: []Patient seen and examined at bedside. She reports dizziness without CP, SOB, nausea. LEft knee pain is well controlled. Objective: []General: Well appearing, NAD LLE: left knee dressing CDI, thigh is soft, DF/PF intact, sensation intact to light touch distally, DP2+ Calves supple and nontender without erythema, edema or palpable cords Assessment: []POD [address] Stoddard 11/16/18 Plan: []Stop maintenance LR due to hyponatremia. May use LR to give medication as required. Fluid restrict to 1200 ml today, may alter instruction per hospitalist recommendation once they have evaluated her today. Recheck sodium tomorrow morning Lovenox bridge to coumadin, coumadin 8 mg today WBAT PT/OT Vital Signs Temp 98.3 F 11/17/18 07:15 Pulse 57 11/17/18 07:15 Resp 16 11/17/18 08:17 BP 130/55 11/17/18 07:15 Pulse Ox 99 11/17/18 07:15 Intake & Output 11/16/18 11/17/18 11/17/18 18:59 06:59 18:59 Intake Total 2900 2570 Output Total 500 1575 Balance 2400 995 Intake: IV Fluids 2900 950 CLINDAMYCIN 900MG 100 LR 2800 950 IVPB 50 ABX - CLINDAMYCIN 50 Oral 1570 Output: Price 300 1575 Estimated Blood Loss 200 Laboratory Last Values Hgb 10.0 g/dl (12.0-16.0) L 11/17/18 05:36 Hct 29 % (35-47) L 11/17/18 05:36 Plt Count 173 10^3/ul (150-450) 11/17/18 05:36 MPV 9.6 fL (7.4-10.4) 11/17/18 05:36 INR (Anticoag Therapy) 1.06 (0.77-1.02) H 11/17/18 05:36 Sodium 128 mmol/L (135-145) L 11/17/18 05:36 Potassium 3.9 mmol/L (3.5-5.0) 11/17/18 05:36 Chloride 93 mmol/L (101-111) L 11/17/18 05:36 Carbon Dioxide 29 mmol/L (22-32) 11/17/18 05:36 Anion Gap 6 mmol/L (2-11) 11/17/18 05:36 BUN 17 mg/dL (6-24) 11/17/18 05:36 Creatinine 0.78 mg/dL (0.51-0.95) 11/17/18 05:36 Est GFR ( Amer) 88.9 (>60) 11/17/18 05:36 Est GFR (Non-Af Amer) 73.4 (>60) 11/17/18 05:36 BUN/Creatinine Ratio 21.8 (8-20) H 11/17/18 05:36 Glucose 140 mg/dL (70-100) H 11/17/18 05:36 POC Glucose (mg/dL) 144 mg/dL (70-100) H 11/17/18 07:13 Calcium 8.1 mg/dL (8.6-10.3) L 11/17/18 05:36
[2018-11-17] MEDS ORDERED: Losartan TAB* 25 MG PO SCH (09:00)
[2018-11-17] MEDS ORDERED: Hydrochlorothiazide TAB* 25 MG PO SCH (09:00)
[2018-11-17] MEDS ORDERED: Meclizine TAB* 12.5 MG PO PRN (10:21)
[2018-11-17 10:59] LABS: TSH (Thyroid Stimulating Horm) 0.16 mcIU/mL (0.34-5.60)
--- NOTE | 2018-11-17 11:01 | PN ---
Subjective Date of Service: 11/17/18 Interval History: Pt seen and examined. Meds and labs reviewed. CC: Intermittent vertigo; pt mentions she has previous hx of intermittent vertigo ROS: Denied HARDEN/dizziness, F/C, N/V, CP, SOB, increased cough, sputum production , abd pain, diarrhea, constipation, dysuria, myalgias, arthralgias, throat pain , and new skin lesions. The rest of the 14 point ROS are unremarkable. PHYSICAL EXAM: GEN APPEARANCE: Awake, not in acute distress HEENT: NC/AT, PERRLA, moist oral mucosa, (-) throat erythema NECK: Soft, supple, (-) cervical LAD, (-)JVD HEART: S1S2 WNL, RRR, No MRG CHEST: CTA, BL, GAE, No W/R/R ABD: Soft, ND/NT, NABS 4x Q EXT: No C/C/LLE (+)1 post-op edema SKIN: Warm to touch PSYCH: No active psychosis, hallucinations, depression, SI/HI Objective Active Medications: Acetaminophen (Tylenol Tab*) 975 mg PO Q8HR ON LICENSE OF [facility] Last Admin: 11/17/18 06:04 Dose: Not Given Atorvastatin Calcium (Lipitor*) 10 mg PO BEDTIME ON LICENSE OF [facility] Last Admin: 11/16/18 21:16 Dose: 10 mg Bisacodyl (Dulcolax Supp*) 10 mg IN DAILY PRN PRN Reason: constipation Cyclobenzaprine HCl (Flexeril Tab*) 10 mg PO TID PRN PRN Reason: SPASMS Dextrose (D50w Syringe 50 Ml*) 12.5 gm IV PUSH .FOR FS < 60 - SS PRN PRN Reason: FS < 60 Diphenhydramine HCl (Benadryl Iv*) 12.5 mg IV Q6H PRN PRN Reason: PRURITIS Docusate Sodium (Colace Cap*) 100 mg PO BID ON LICENSE OF [facility] Last Admin: 11/17/18 08:17 Dose: 100 mg Dulaglutide (Trulicity (Nf)) 0.75 mg SUBCUT Sa@0900 ON LICENSE OF [facility] Enoxaparin Sodium (Lovenox(*)) 40 mg SUBCUT Q24H ON LICENSE OF [facility] Last Admin: 11/17/18 08:18 Dose: 40 mg Insulin Human Lispro (Humalog*) 0 units SUBCUT AC ON LICENSE OF [facility]; Protocol Last Admin: 11/17/18 07:14 Dose: Not Given Lactulose (Lactulose*) 30 ml PO Q6H PRN PRN Reason: constipation Losartan Potassium (Cozaar Tab*) 50 mg PO QAM ON LICENSE OF [facility] Last Admin: 11/17/18 08:17 Dose: 50 mg Magnesium Hydroxide (Milk Of Magnesia Liq*) 30 ml PO BID ON LICENSE OF [facility] Last Admin: 11/17/18 08:16 Dose: 30 ml Magnesium Hydroxide (Milk Of Magnesia Liq*) 30 ml PO Q6H PRN PRN Reason: constipation Meclizine HCl (Antivert Tab*) 25 mg PO Q6H PRN PRN Reason: VERTIGO Morphine Sulfate (Morphine Vial*) 2 mg IV Q2H PRN PRN Reason: PAIN Ondansetron HCl (Zofran Inj*) 4 mg IV Q6H PRN PRN Reason: nausea Last Admin: 11/17/18 07:19 Dose: 4 mg Ondansetron HCl (Zofran Tab*) 4 mg PO Q6H PRN PRN Reason: NAUSEA Oxycodone HCl (Roxycodone Tab*) 10 mg PO Q4H PRN PRN Reason: SEVERE PAIN Last Admin: 11/17/18 10:36 Dose: 10 mg Oxycodone/Acetaminophen (Percocet 5/325 Tab*) 1 tab PO Q4H PRN PRN Reason: PAIN Oxycodone/Acetaminophen (Percocet 5/325 Tab*) 2 tab PO Q4H PRN PRN Reason: PAIN Last Admin: 11/17/18 08:17 Dose: 2 tab Pharmacy Profile Note (Coumadin Daily Reminder*) 0 note FOLLOW UP 1700 ON LICENSE OF [facility] Last Admin: 11/16/18 17:07 Dose: 1 note Polyethylene Glycol/Electrolytes (Miralax*) 17 gm PO DAILY PRN PRN Reason: Constipation Tramadol HCl (Ultram*) 50 mg PO Q6H PRN PRN Reason: PAIN Warfarin Sodium (Coumadin Tab(*)) 8 mg PO ONCE@1700 ONE; Protocol Stop: 11/17/18 17:01 Vital Signs - 8 hr 11/17/18 11/17/18 11/17/18 03:47 03:55 05:52 Temperature 97.5 F Pulse Rate 59 Respiratory 17 16 16 Rate Blood Pressure 120/62 (mmHg) O2 Sat by Pulse 98 Oximetry 11/17/18 11/17/18 11/17/18 07:15 08:00 08:15 Temperature 98.3 F Pulse Rate 57 Respiratory 17 18 16 Rate Blood Pressure 130/55 (mmHg) O2 Sat by Pulse 99 99 Oximetry 11/17/18 11/17/18 11/17/18 08:17 09:27 10:36 Temperature Pulse Rate 57 Respiratory 16 18 Rate Blood Pressure 112/55 (mmHg) O2 Sat by Pulse Oximetry Oxygen Devices in Use Now: None Result Diagrams: 11/17/18 05:36 11/17/18 05:36 Assess/Plan/Problems-Billing Assessment: - Patient Problems (1) Hyponatremia Current Visit: Yes Status: Acute Code(s): E87.1 - HYPO-OSMOLALITY AND HYPONATREMIA SNOMED Code(s): 18407383 Comment: #Euvolemic hyponatremia: -Agree with fluid restriction, but would increase fluid restriction to 1000 cc/ 24 hrs -D/C IVFs -Check TSH and serum AM Cortisol level as add on from todays labs already drawn -Sent for Ur and Sr Osm and urine lytes -Continue to follow Sodium levels (2) Vertigo Current Visit: Yes Status: Acute Code(s): R42 - DIZZINESS AND GIDDINESS SNOMED Code(s): 718835844 Comment: -Pt mentions she has had milder intermittent vertigo history but never went to MD to have this officially evaluated -Likely due to BPPV -No other focal neurological complaints -Will pace pt on Meclizine PRN as ordered -Will ask PT to evaluate for vertigo (3) Osteoarthritis Current Visit: Yes Status: Acute Code(s): M19.90 - UNSPECIFIED OSTEOARTHRITIS, UNSPECIFIED SITE SNOMED Code(s): 490889647 Comment: #Severe endstage degenerative osteoarthritis of L. knee joint S/P L. TKA -POD #1 -Defer with ortho for further input (4) HYPERTENSION Current Visit: No Status: Active Comment: -Well controlled post-op -Continue Losartan -Continue to hold HCTZ given BP in the low side of normal -Consider re-start of above in AM if hemodynamically stable, BP data permitting (5) Diabetes mellitus type 2 Current Visit: No Status: Active Code(s): E11.9 - TYPE 2 DIABETES MELLITUS WITHOUT COMPLICATIONS SNOMED Code(s): 86588867 Comment: -Well-controlled -Continue ISS and Trulicity -Continue watchful waiting (6) Hyperlipidemia Current Visit: Yes Status: Acute Code(s): E78.5 - HYPERLIPIDEMIA, UNSPECIFIED SNOMED Code(s): 96207180 Comment: -Continue Atorvastatin (7) Sleep apnea Current Visit: No Status: Active Code(s): G47.30 - SLEEP APNEA, UNSPECIFIED SNOMED Code(s): 00741215 Comment: -Continue CPAP qHS (8) DVT prophylaxis Current Visit: Yes Status: Acute Code(s): KME1433 - SNOMED Code(s): 158062054 Comment: -Continue Lovenox SQ Status and Disposition: -Appreciate PT eval; pt to go home when ready -PT requested to re-eval pt for vertigo as discussed above
[2018-11-17 11:37] LABS: Urine Creatinine Concentration 231.65 mg/dL; Urine Sodium Concentration < 18 mmol/L
[2018-11-17] MEDS ORDERED: Warfarin TAB(*) 4 MG PO ONE (17:00)
[2018-11-17] MEDS: Ondansetron TAB* 4 MG PO PRN (19:02)
[2018-11-17] MEDS: Atorvastatin* 10 MG TAB PO SCH (20:35)
[2018-11-18] MEDS: oxyCODONE TAB* 5 MG TAB PO PRN ×2 (01:07→08:27)
[2018-11-18] MEDS: oxyCODONE/Acetamin 5/325 MG* TAB PO PRN ×3 (04:59→17:29)
[2018-11-18] MEDS: Acetaminophen TAB* 325 MG PO SCH ×3 (05:04→21:51)
[2018-11-18 06:31] LABS: ABS Basophils 0 10^3/ul (0-0.2); ABS Eosinophils 0 10^3/ul (0-0.6); ABS Lymphocytes 1.4 10^3/ul (1.0-4.8); ABS Monocytes 0.7 10^3/ul (0-0.8); ABS Neutrophils 4.9 10^3/ul (1.5-7.7); ABS Nucleated RBC 0 10^3/ul; Eosinophil % 0.7 %; Hematocrit 29 % (35-47); Hemoglobin 9.9 g/dl (12.0-16.0); Lymphocyte % 20.2 %; Mean Corpuscular HGB Conc 34 g/dl (31-36); Mean Corpuscular Hemoglobin 30 pg (27-31); Mean Corpuscular Volume 88 fL (80-97); Mean Platelet Volume 9.6 fL (7.4-10.4); Nucleated Red Blood Cells % 0.1; Platelet Count 183 10^3/ul (150-450); Red Blood Count 3.31 10^6/ul (4.00-5.40); Red Cell Distribution Width 14 % (10.5-15); White Blood Count 7.1 10^3/ul (3.5-10.8)
[2018-11-18 06:35] LABS: INR 1.17 (0.77-1.02)
[2018-11-18 06:49] LABS: Albumin 3.3 g/dL (3.2-5.2); BUN/Creatinine Ratio 24.6 (8-20); Calcium 8.6 mg/dL (8.6-10.3); EGFR Non-African American 84.6 (>60); Globulin 3.2 g/dL (2-4); HDL Cholesterol 45.8 mg/dL; Magnesium 2.2 mg/dL (1.9-2.7); Phosphorus 2.5 mg/dL (2.5-5.0); Potassium 3.9 mmol/L (3.5-5.0); Total Bilirubin 0.5 mg/dL (0.2-1.0); Total Protein 6.5 g/dL (6.4-8.9)
[2018-11-18] MEDS: Ondansetron TAB* 4 MG PO PRN (07:21)
[2018-11-18 07:25] LABS: Free T4 1.09 ng/dL (0.61-1.12)
[2018-11-18] MEDS ORDERED: Cosyntropin* 0.25 MG VIAL IV STA (07:30)
--- NOTE | 2018-11-18 07:39 | PN ---
Hospitalist Progress Note Date of Service: 11/18/18 Reviewed Urine lytes TSH and early AM Cortisol level add on yesterday, which suggests adrenal isufficiency; will perform Cosyntropyn test and if positive will place pt on Hydrocortisone 50 mg IV q6H.
[2018-11-18] MEDS: Enoxaparin(*) 40 MG/0.4 ML SYR SUBCUT SCH (08:25)
[2018-11-18] MEDS: Insulin LISPRO* 1 UNITS UNIT SUBCUT SCH ×3 (08:25→17:51)
[2018-11-18] MEDS: Docusate CAP* 100 MG PO SCH ×2 (08:27→21:27)
[2018-11-18] MEDS: Magnesium Hydroxide LIQ* 30 ML UDC PO SCH ×2 (08:27→21:27)
[2018-11-18] MEDS: Losartan TAB* 25 MG PO SCH (08:27)
[2018-11-18] MEDS ORDERED: Hydrocortisone INJ* 100 MG VIAL IV SCH ×4 (10:00→17:00)
--- NOTE | 2018-11-18 10:59 | PN ---
Progress Note - Progress Note Date of Service: 11/18/18 SOAP: Subjective: []Patient was seen and examined at bedside. She feels dizzy though was able to participate with PT. Denies CP, SOB, nausea. Left knee pain is well controlled, no other complaints Objective: []General: Well appearing, NAD LLE: left knee dressing changed, incision CDI. Thigh is soft, DF/PF intact, sensation intact to light touch distally, DP2+ Calves supple and nontender without erythema, edema or palpable cords Assessment: []POD [address] Stoddard 11/16/18 Hyponatremia Plan: [] Hyponatrmia management per medicine, evaluation for adrenal insufficiency underway Lovenox bridge to coumadin, coumadin 8 mg today WBAT PT/OT Vital Signs Temp 97.8 F 11/18/18 07:53 Pulse 69 11/18/18 08:24 Resp 18 11/18/18 10:51 BP 139/71 11/18/18 08:24 Pulse Ox 98 11/18/18 07:53 Intake & Output 11/17/18 11/18/18 11/18/18 18:59 06:59 18:59 Intake Total 2071 600 240 Output Total 350 0 50 Balance 1721 600 190 Intake: IV Fluids 881 ABX - CLINDAMYCIN 106 LR 775 Oral 1190 600 240 Output: Urine 350 0 50 Other: Estimated Void Small Medium # Voids 1 1 Laboratory Last Values WBC 7.1 10^3/ul (3.5-10.8) 11/18/18 05:53 RBC 3.31 10^6/ul (4.00-5.40) L 11/18/18 05:53 Hgb 9.9 g/dl (12.0-16.0) L 11/18/18 05:53 Hct 29 % (35-47) L 11/18/18 05:53 MCV 88 fL (80-97) 11/18/18 05:53 MCH 30 pg (27-31) 11/18/18 05:53 MCHC 34 g/dl (31-36) 11/18/18 05:53 RDW 14 % (10.5-15) 11/18/18 05:53 Plt Count 183 10^3/ul (150-450) 11/18/18 05:53 MPV 9.6 fL (7.4-10.4) 11/18/18 05:53 Neut % (Auto) 69.2 % 11/18/18 05:53 Lymph % (Auto) 20.2 % 11/18/18 05:53 Izard % (Auto) 9.8 % 11/18/18 05:53 Eos % (Auto) 0.7 % 11/18/18 05:53 Baso % (Auto) 0.1 % 11/18/18 05:53 Absolute Neuts (auto) 4.9 10^3/ul (1.5-7.7) 11/18/18 05:53 Absolute Lymphs (auto) 1.4 10^3/ul (1.0-4.8) 11/18/18 05:53 Absolute Monos (auto) 0.7 10^3/ul (0-0.8) 11/18/18 05:53 Absolute Eos (auto) 0 10^3/ul (0-0.6) 11/18/18 05:53 Absolute Basos (auto) 0 10^3/ul (0-0.2) 11/18/18 05:53 Absolute Nucleated RBC 0 10^3/ul 11/18/18 05:53 Nucleated RBC % 0.1 11/18/18 05:53 INR (Anticoag Therapy) 1.17 (0.77-1.02) H 11/18/18 05:53 Sodium 124 mmol/L (135-145) L 11/18/18 05:53 Potassium 3.9 mmol/L (3.5-5.0) 11/18/18 05:53 Chloride 88 mmol/L (101-111) L 11/18/18 05:53 Carbon Dioxide 32 mmol/L (22-32) 11/18/18 05:53 Anion Gap 4 mmol/L (2-11) 11/18/18 05:53 BUN 17 mg/dL (6-24) 11/18/18 05:53 Creatinine 0.69 mg/dL (0.51-0.95) 11/18/18 05:53 Est GFR ( Amer) 102.4 (>60) 11/18/18 05:53 Est GFR (Non-Af Amer) 84.6 (>60) 11/18/18 05:53 BUN/Creatinine Ratio 24.6 (8-20) H 11/18/18 05:53 Glucose 145 mg/dL (70-100) H 11/18/18 05:53 POC Glucose (mg/dL) 153 mg/dL (70-100) H 11/18/18 07:15 Serum Osmolality 263 mOsm/kg (275-295) L 11/18/18 07:53 Calcium 8.6 mg/dL (8.6-10.3) 11/18/18 05:53 Phosphorus 2.5 mg/dL (2.5-5.0) 11/18/18 05:53 Magnesium 2.2 mg/dL (1.9-2.7) 11/18/18 05:53 Total Bilirubin 0.50 mg/dL (0.2-1.0) 11/18/18 05:53 AST 23 U/L (13-39) 11/18/18 05:53 ALT 25 U/L (7-52) 11/18/18 05:53 Alkaline Phosphatase 49 U/L (34-104) 11/18/18 05:53 Total Protein 6.5 g/dL (6.4-8.9) 11/18/18 05:53 Albumin 3.3 g/dL (3.2-5.2) 11/18/18 05:53 Globulin 3.2 g/dL (2-4) 11/18/18 05:53 Albumin/Globulin Ratio 1.0 (1-3) 11/18/18 05:53 Triglycerides 91 mg/dL 11/18/18 05:53 Cholesterol 88 mg/dL 11/18/18 05:53 LDL Cholesterol 24 mg/dL 11/18/18 05:53 HDL Cholesterol 45.8 mg/dL 11/18/18 05:53 TSH 0.16 mcIU/mL (0.34-5.60) L 11/17/18 05:36 Free T4 1.09 ng/dL (0.61-1.12) 11/18/18 05:53 Cortisol 24.92 mcg/dL 11/18/18 09:08 Urine Osmolality 758 mOsm/kg (100-1150) 11/17/18 10:50 Ur Creatinine Concen 231.65 mg/dL 11/17/18 10:50 U Sodium Concentration < 18 mmol/L 11/17/18 10:50
--- NOTE | 2018-11-18 13:26 | PN ---
Subjective Date of Service: 11/18/18 Interval History: Pt seen and examined. Meds and labs reviewed. Pts sodium level further decreased this AM. Please see discussion below. CC: N/A ROS: Denied HARDEN/dizziness, F/C, N/V, CP, SOB, increased cough, sputum production , abd pain, diarrhea, constipation, dysuria, myalgias, arthralgias, throat pain , and new skin lesions. The rest of the 14 point ROS are unremarkable. PHYSICAL EXAM: GEN APPEARANCE: Awake, not in acute distress HEENT: NC/AT, PERRLA, moist oral mucosa, (-) throat erythema NECK: Soft, supple, (-) cervical LAD, (-)JVD HEART: S1S2 WNL, RRR, No MRG CHEST: CTA, BL, GAE, No W/R/R ABD: Soft, ND/NT, NABS 4x Q EXT: No C/C/LLE (+)1 post-op edema SKIN: Warm to touch PSYCH: No active psychosis, hallucinations, depression, SI/HI Objective Active Medications: Acetaminophen (Tylenol Tab*) 975 mg PO Q8HR [facility] Last Admin: 11/18/18 12:20 Dose: Not Given Atorvastatin Calcium (Lipitor*) 10 mg PO BEDTIME [facility] Last Admin: 11/17/18 20:35 Dose: 10 mg Bisacodyl (Dulcolax Supp*) 10 mg RI DAILY PRN PRN Reason: constipation Cyclobenzaprine HCl (Flexeril Tab*) 10 mg PO TID PRN PRN Reason: SPASMS Dextrose (D50w Syringe 50 Ml*) 12.5 gm IV PUSH .FOR FS < 60 - SS PRN PRN Reason: FS < 60 Diphenhydramine HCl (Benadryl Iv*) 12.5 mg IV Q6H PRN PRN Reason: PRURITIS Docusate Sodium (Colace Cap*) 100 mg PO BID [facility] Last Admin: 11/18/18 08:27 Dose: 100 mg Dulaglutide (Trulicity (Nf)) 0.75 mg SUBCUT Sa@0900 [facility] Enoxaparin Sodium (Lovenox(*)) 40 mg SUBCUT Q24H [facility] Last Admin: 11/18/18 08:25 Dose: 40 mg Hydrocortisone Sodium Succinate (Solu-Cortef*) 50 mg IV Q6H [facility] Insulin Human Lispro (Humalog*) [address] [facility]; Protocol Last Admin: 11/18/18 11:56 Dose: 1 unit Lactulose (Lactulose*) 30 ml PO Q6H PRN PRN Reason: constipation Losartan Potassium (Cozaar Tab*) 50 mg PO QAM [facility] Last Admin: 11/18/18 08:27 Dose: 50 mg Magnesium Hydroxide (Milk Of Magnesia Liq*) 30 ml PO BID [facility] Last Admin: 11/18/18 08:27 Dose: 30 ml Magnesium Hydroxide (Milk Of Magnesia Liq*) 30 ml PO Q6H PRN PRN Reason: constipation Meclizine HCl (Antivert Tab*) 25 mg PO Q6H PRN PRN Reason: VERTIGO Morphine Sulfate (Morphine Vial*) 2 mg IV Q2H PRN PRN Reason: PAIN Ondansetron HCl (Zofran Inj*) 4 mg IV Q6H PRN PRN Reason: nausea Last Admin: 11/17/18 07:19 Dose: 4 mg Ondansetron HCl (Zofran Tab*) 4 mg PO Q6H PRN PRN Reason: NAUSEA Last Admin: 11/18/18 07:21 Dose: 4 mg Oxycodone HCl (Roxycodone Tab*) 10 mg PO Q4H PRN PRN Reason: SEVERE PAIN Last Admin: 11/18/18 08:27 Dose: 10 mg Oxycodone/Acetaminophen (Percocet 5/325 Tab*) 1 tab PO Q4H PRN PRN Reason: PAIN Oxycodone/Acetaminophen (Percocet 5/325 Tab*) 2 tab PO Q4H PRN PRN Reason: PAIN Last Admin: 11/18/18 11:56 Dose: 2 tab Pharmacy Profile Note (Coumadin Daily Reminder*) 0 note FOLLOW UP 1700 [facility] Last Admin: 11/17/18 16:43 Dose: 1 note Polyethylene Glycol/Electrolytes (Miralax*) 17 gm PO DAILY PRN PRN Reason: Constipation Tramadol HCl (Ultram*) 50 mg PO Q6H PRN PRN Reason: PAIN Last Admin: 11/17/18 20:35 Dose: 50 mg Warfarin Sodium (Coumadin Tab(*)) 8 mg PO ONCE@1700 [facility]; Protocol Stop: 11/18/18 17:01 Vital Signs - 8 hr 11/18/18 11/18/18 11/18/18 07:15 07:53 08:00 Temperature 97.8 F Pulse Rate 72 Respiratory 18 16 18 Rate Blood Pressure 132/74 (mmHg) O2 Sat by Pulse 98 99 Oximetry 11/18/18 11/18/18 11/18/18 08:24 08:27 10:51 Temperature Pulse Rate 69 Respiratory 18 18 Rate Blood Pressure 139/71 (mmHg) O2 Sat by Pulse Oximetry 11/18/18 11/18/18 11:22 11:56 Temperature 98.2 F Pulse Rate 80 Respiratory 16 18 Rate Blood Pressure 143/71 (mmHg) O2 Sat by Pulse 99 Oximetry Oxygen Devices in Use Now: None Result Diagrams: 11/18/18 05:53 11/18/18 05:53 Assess/Plan/Problems-Billing Assessment: - Patient Problems (1) Hyponatremia Current Visit: Yes Status: Acute Code(s): E87.1 - HYPO-OSMOLALITY AND HYPONATREMIA SNOMED Code(s): 59379486 Comment: #Euvolemic hyponatremia: -Sodium levels worsened this AM -Given early AM Cortisol was suppressed, performed Cosyntropin test -When 2nd level is drawn for cortisol, pt was started on HydroCortisone, however , pts cortisol level after Cosyntropin being given was >18 ug/dL -Discussed above w/ Dr. Gamble and pt appears to have passed cosyntropin test despite being hypo-osmolal; advised to decrease Hydrocortisone to 50 mg IVq6H for now; does not fully explain why morning cortisol level was suppressed yesterday other than it was not really early intervention specialist but o/n level? -Will await any further input from Endo -For repeat sodium levels at 1400 (2) Vertigo Current Visit: Yes Status: Acute Code(s): R42 - DIZZINESS AND GIDDINESS SNOMED Code(s): 579042778 Comment: -Pt mentions she has had milder intermittent vertigo history but never went to MD to have this officially evaluated -Likely due to BPPV -No other focal neurological complaints -Continue Meclizine PRN as ordered -Will ask PT to evaluate for vertigo (3) Osteoarthritis Current Visit: Yes Status: Acute Code(s): M19.90 - UNSPECIFIED OSTEOARTHRITIS, UNSPECIFIED SITE SNOMED Code(s): 661254180 Comment: #Severe endstage degenerative osteoarthritis of L. knee joint S/P L. TKA -POD #2 -Defer with ortho for further input (4) HYPERTENSION Current Visit: No Status: Active Comment: -Well controlled post-op -Continue Losartan -Continue to hold HCTZ given BP in the low side of normal -Hold off on HCTZ given pt is hyponatremic (5) Diabetes mellitus type 2 Current Visit: No Status: Active Code(s): E11.9 - TYPE 2 DIABETES MELLITUS WITHOUT COMPLICATIONS SNOMED Code(s): 01486025 Comment: -Well-controlled -Continue ISS and Trulicity -Continue watchful waiting (6) Hyperlipidemia Current Visit: Yes Status: Acute Code(s): E78.5 - HYPERLIPIDEMIA, UNSPECIFIED SNOMED Code(s): 46993139 Comment: -Continue Atorvastatin (7) Sleep apnea Current Visit: No Status: Active Code(s): G47.30 - SLEEP APNEA, UNSPECIFIED SNOMED Code(s): 45822491 Comment: -Continue CPAP qHS (8) DVT prophylaxis Current Visit: Yes Status: Acute Code(s): FVP9531 - SNOMED Code(s): 704845072 Comment: -Appreciate PT eval; pt to go home when ready Status and Disposition: -Appreciate PT eval; pt to go home when ready -PT requested to re-eval pt for vertigo as discussed above
[2018-11-18] MEDS ORDERED: Warfarin TAB(*) 4 MG PO ONE (17:00)
[2018-11-18] MEDS: Atorvastatin* 10 MG TAB PO SCH (21:47)
--- NOTE | 2018-11-18 21:56 | CONSULT ---
Consult Consult: [facility] Inpatient Consult Note Date of Consult: 11/18/18 Reason for Consult: hyponatremia Reason for Admission: LEFT total knee replacement ASSESSMENT: 68 yo F with well-controlled T2DM and hypertension, now admitted for LTKA, with post-operative hyponatremia. She is euvolemic on exam, but with low serum osm, high urine osm (>300) and low urine sodium (<25). This pattern is due to either SIADH or hypovolemia. Given recent surgery, I favor SIADH as a likely etiology, but isotonic saline challenge can be used to differentiate SIADH from hypovolemia in this setting: if ADH secretion is appropriate, saline should suppress the hypovolemic stimulus to ADH release, promoting the excretion of a dilute urine and rapid correction of the hyponatremia. If ADH secretion is inappropriate, urine osm will remain high in spite of fluid bolus and hyponatremia will often worsen. Adrenal insufficiency has been excluded by adequate stimulation of cortisol (>18) in response to high-dose ACTH and no improvement of hyponatremia after hydrocortisone given earlier today. Hyperthyroidism is unlikely with low TSH and normal free T4, but should be repeated. PLAN: - reinstate 1L/24H fluid restriction tonight (done) - check urine osm and urine sodium (done) - d/c hydrocortisone (done) - repeat TSH/free T4 (done) - if hyponatremia persists and urine osm remains high on recheck, recommend: - normal saline bolus (1L over 1 hour) - serial measurement of the urine sodium and urine osm BEFORE and AFTER infusion of isotonic saline SUBJECTIVE: History of Present Illness: 68 yo F in generally good health, admitted for elective LTKA. See pre-op note by Dr. Desouza dated 10/21/18 for details. Briefly , she has experienced worsening L knee pain over the past 6 months, worsened by fall, unresponsive to conservative measures. She had normal preop labs on . She underwent uncomplicated LTKA on 11/16/18 and was found to have moderate hyponatremia ([id number]) on 11/17/18 Hospitalist team checked urine/serum sodium and osm and diagnosed euvolemic hyponatremia. Initial AM cortisol was very low (<1) on 11/17/18, but repeat sample on 11/18/18 was adequate (>5) with intact stimulation (>18). Fluid restriction was instituted on 11/17/18, but was challenging for the patient and did not improve hyponatremia. She denies symptoms of adrenal insufficiency, as well as any prior history of hyponatremia. She generally avoids salty foods because of extremity swelling. She has not started any new medications recently. Past Medical History: 1. DM2 2. HTN 3. DL Medications Prior to Admission: Aspirin [Ecotrin Low Strength] 81 mg PO QPM 10/13/12 [History Confirmed 11/16/18 ] Metformin ER (NF) 3 tab PO BEDTIME 10/13/12 [History Confirmed 11/16/18] Losartan/Hydrochlorothiazide [Losartan Potassium/Hydroc 50-12.5 mg] 1 tab PO QAM 02/12/18 [History Confirmed 11/16/18] Atorvastatin* [Lipitor*] 10 mg PO BEDTIME 11/04/18 [History Confirmed 11/16/18] Calcium Carbonate CHEW TAB* [Tums*] 1 tab.chew PO ONCE PRN 11/04/18 [History Confirmed 11/16/18] Dulaglutide [Trulicity] 0.75 mg SUBCUT SA 11/04/18 [History Confirmed 11/16/18] Inpatient Medications: Acetaminophen (Tylenol Tab*) 975 mg PO Q8HR [facility] Last Admin: 11/18/18 21:51 Dose: 975 mg Atorvastatin Calcium (Lipitor*) 10 mg PO BEDTIME [facility] Last Admin: 11/18/18 21:47 Dose: 10 mg Bisacodyl (Dulcolax Supp*) 10 mg SD DAILY PRN PRN Reason: constipation Cyclobenzaprine HCl (Flexeril Tab*) 10 mg PO TID PRN PRN Reason: SPASMS Dextrose (D50w Syringe 50 Ml*) 12.5 gm IV PUSH .FOR FS < 60 - SS PRN PRN Reason: FS < 60 Diphenhydramine HCl (Benadryl Iv*) 12.5 mg IV Q6H PRN PRN Reason: PRURITIS Docusate Sodium (Colace Cap*) 100 mg PO BID [facility] Last Admin: 11/18/18 21:27 Dose: Not Given Dulaglutide (Trulicity (Nf)) 0.75 mg SUBCUT Sa@0900 [place] Enoxaparin Sodium (Lovenox(*)) 40 mg SUBCUT Q24H [facility] Last Admin: 11/18/18 08:25 Dose: 40 mg Hydrocortisone Sodium Succinate (Solu-Cortef*) 50 mg IV Q6H [facility] Last Admin: 11/18/18 17:32 Dose: 50 mg Insulin Human Lispro (Humalog*) 0 units SUBCUT [facility]; Protocol Last Admin: 11/18/18 17:51 Dose: 1 unit Lactulose (Lactulose*) 30 ml PO Q6H PRN PRN Reason: constipation Losartan Potassium (Cozaar Tab*) 50 mg PO QAM [facility] Last Admin: 11/18/18 08:27 Dose: 50 mg Magnesium Hydroxide (Milk Of Magnesia Liq*) 30 ml PO BID [facility] Last Admin: 11/18/18 21:27 Dose: Not Given Magnesium Hydroxide (Milk Of Magnesia Liq*) 30 ml PO Q6H PRN PRN Reason: constipation Meclizine HCl (Antivert Tab*) 25 mg PO Q6H PRN PRN Reason: VERTIGO Morphine Sulfate (Morphine Vial*) 2 mg IV Q2H PRN PRN Reason: PAIN Ondansetron HCl (Zofran Inj*) 4 mg IV Q6H PRN PRN Reason: nausea Last Admin: 11/17/18 07:19 Dose: 4 mg Ondansetron HCl (Zofran Tab*) 4 mg PO Q6H PRN PRN Reason: NAUSEA Last Admin: 11/18/18 07:21 Dose: 4 mg Oxycodone HCl (Roxycodone Tab*) 10 mg PO Q4H PRN PRN Reason: SEVERE PAIN Last Admin: 11/18/18 08:27 Dose: 10 mg Oxycodone/Acetaminophen (Percocet 5/325 Tab*) 1 tab PO Q4H PRN PRN Reason: PAIN Oxycodone/Acetaminophen (Percocet 5/325 Tab*) 2 tab PO Q4H PRN PRN Reason: PAIN Last Admin: 11/18/18 17:29 Dose: 2 tab Pharmacy Profile Note (Coumadin Daily Reminder*) 0 note FOLLOW UP 1700 [facility] Last Admin: 11/18/18 17:35 Dose: 1 note Polyethylene Glycol/Electrolytes (Miralax*) 17 gm PO DAILY PRN PRN Reason: Constipation Tramadol HCl (Ultram*) 50 mg PO Q6H PRN PRN Reason: PAIN Last Admin: 11/17/18 20:35 Dose: 50 mg Allergies/Intolerances: PCN, adhesive tap, sulfa Social History: Lives alone with cat. Retired from [employer]. Denies alcohol or tobacco. Enjoys photography. Family History: Diabetes. Otherwise noncontributory. Review of Systems: As above. OBJECTIVE: Temp Pulse Resp BP Pulse Ox 98.1 F 77 16 148/69 100 11/18/18 19:48 11/18/18 19:48 11/18/18 20:13 11/18/18 19:48 11/18/18 19:48 General: alert, pleasant, oriented, no distress ENT: neck supple, no thyromegaly, no bruit is heard Chest: CTAB, no wheezing or crackles CV: RRR, no murmur Abdomen: soft, non-tender Extremities: no edema, distal pulses intact, LLE dressing Skin: warm, dry, no rash Neuro: grossly intact motor/sensory in extremities Psych: restricted affect, pleasant Labs: WBC 7.1 10^3/ul (3.5-10.8) 11/18/18 05:53 RBC 3.31 10^6/ul (4.00-5.40) L 11/18/18 05:53 Hgb 9.9 g/dl (12.0-16.0) L 11/18/18 05:53 Hct 29 % (35-47) L 11/18/18 05:53 MCV 88 fL (80-97) 11/18/18 05:53 MCH 30 pg (27-31) 11/18/18 05:53 MCHC 34 g/dl (31-36) 11/18/18 05:53 RDW 14 % (10.5-15) 11/18/18 05:53 Plt Count 183 10^3/ul (150-450) 11/18/18 05:53 MPV 9.6 fL (7.4-10.4) 11/18/18 05:53 Neut % (Auto) 69.2 % 11/18/18 05:53 Lymph % (Auto) 20.2 % 11/18/18 05:53 [place] % (Auto) 9.8 % 11/18/18 05:53 Eos % (Auto) 0.7 % 11/18/18 05:53 Baso % (Auto) 0.1 % 11/18/18 05:53 Absolute Neuts (auto) 4.9 10^3/ul (1.5-7.7) 11/18/18 05:53 Absolute Lymphs (auto) 1.4 10^3/ul (1.0-4.8) 11/18/18 05:53 Absolute Monos (auto) 0.7 10^3/ul (0-0.8) 11/18/18 05:53 Absolute Eos (auto) 0 10^3/ul (0-0.6) 11/18/18 05:53 Absolute Basos (auto) 0 10^3/ul (0-0.2) 11/18/18 05:53 Absolute Nucleated RBC 0 10^3/ul 11/18/18 05:53 Nucleated RBC % 0.1 11/18/18 05:53 INR (Anticoag Therapy) 1.17 (0.77-1.02) H 11/18/18 05:53 Sodium 123 mmol/L (135-145) L 11/18/18 15:36 Potassium 3.9 mmol/L (3.5-5.0) 11/18/18 05:53 Chloride 88 mmol/L (101-111) L 11/18/18 05:53 Carbon Dioxide 32 mmol/L (22-32) 11/18/18 05:53 Anion Gap 4 mmol/L (2-11) 11/18/18 05:53 BUN 17 mg/dL (6-24) 11/18/18 05:53 Creatinine 0.69 mg/dL (0.51-0.95) 11/18/18 05:53 Est GFR ( Amer) 102.4 (>60) 11/18/18 05:53 Est GFR (Non-Af Amer) 84.6 (>60) 11/18/18 05:53 BUN/Creatinine Ratio 24.6 (8-20) H 11/18/18 05:53 Glucose 145 mg/dL (70-100) H 11/18/18 05:53 POC Glucose (mg/dL) 185 mg/dL (70-100) H 11/18/18 17:35 Serum Osmolality 263 mOsm/kg (275-295) L 11/18/18 07:53 Calcium 8.6 mg/dL (8.6-10.3) 11/18/18 05:53 Phosphorus 2.5 mg/dL (2.5-5.0) 11/18/18 05:53 Magnesium 2.2 mg/dL (1.9-2.7) 11/18/18 05:53 Total Bilirubin 0.50 mg/dL (0.2-1.0) 11/18/18 05:53 AST 23 U/L (13-39) 11/18/18 05:53 ALT 25 U/L (7-52) 11/18/18 05:53 Alkaline Phosphatase 49 U/L (34-104) 11/18/18 05:53 Total Protein 6.5 g/dL (6.4-8.9) 11/18/18 05:53 Albumin 3.3 g/dL (3.2-5.2) 11/18/18 05:53 Globulin 3.2 g/dL (2-4) 11/18/18 05:53 Albumin/Globulin Ratio 1.0 (1-3) 11/18/18 05:53 Triglycerides 91 mg/dL 11/18/18 05:53 Cholesterol 88 mg/dL 11/18/18 05:53 LDL Cholesterol 24 mg/dL 11/18/18 05:53 HDL Cholesterol 45.8 mg/dL 11/18/18 05:53 TSH 0.16 mcIU/mL (0.34-5.60) L 11/17/18 05:36 Free T4 1.09 ng/dL (0.61-1.12) 11/18/18 05:53 Cortisol 24.92 mcg/dL 11/18/18 09:08 Urine Osmolality 758 mOsm/kg (100-1150) 11/17/18 10:50 Ur Creatinine Concen 231.65 mg/dL 11/17/18 10:50 U Sodium Concentration < 18 mmol/L 11/17/18 10:50
[2018-11-18 22:45] LABS: TSH (Thyroid Stimulating Horm) 2.04 mcIU/mL (0.34-5.60)
[2018-11-19] MEDS: oxyCODONE TAB* 5 MG TAB PO PRN ×2 (00:53→08:10)
[2018-11-19] MEDS: Acetaminophen TAB* 325 MG PO SCH ×2 (05:57→13:14)
[2018-11-19 06:19] LABS: ABS Basophils 0 10^3/ul (0-0.2); ABS Eosinophils 0 10^3/ul (0-0.6); ABS Lymphocytes 1.9 10^3/ul (1.0-4.8); ABS Monocytes 0.9 10^3/ul (0-0.8); ABS Neutrophils 4.8 10^3/ul (1.5-7.7); ABS Nucleated RBC 0 10^3/ul; Eosinophil % 0.3 %; Hematocrit 29 % (35-47); Hemoglobin 9.6 g/dl (12.0-16.0); Lymphocyte % 24.5 %; Mean Corpuscular HGB Conc 33 g/dl (31-36); Mean Corpuscular Hemoglobin 29 pg (27-31); Mean Corpuscular Volume 88 fL (80-97); Mean Platelet Volume 9.9 fL (7.4-10.4); Nucleated Red Blood Cells % 0; Platelet Count 206 10^3/ul (150-450); Red Blood Count 3.25 10^6/ul (4.00-5.40); Red Cell Distribution Width 14 % (10.5-15); White Blood Count 7.6 10^3/ul (3.5-10.8)
[2018-11-19 06:24] LABS: INR 1.91 (0.77-1.02)
[2018-11-19 06:38] LABS: Albumin 3.3 g/dL (3.2-5.2); BUN/Creatinine Ratio 17.1 (8-20); Calcium 9.2 mg/dL (8.6-10.3); EGFR Non-African American 75.7 (>60); Globulin 3.2 g/dL (2-4); Magnesium 2.6 mg/dL (1.9-2.7); Phosphorus 1.9 mg/dL (2.5-5.0); Potassium 4.4 mmol/L (3.5-5.0); Total Bilirubin 0.3 mg/dL (0.2-1.0); Total Protein 6.5 g/dL (6.4-8.9)
[2018-11-19] MEDS ORDERED: Sodium Phosphate INJ* 15 MMOLE in NS 0.9% 250 ML* 250 ML IVPB ONE (07:34)
[2018-11-19] MEDS: Insulin LISPRO* 1 UNITS UNIT SUBCUT SCH ×2 (07:37→11:57)
[2018-11-19] MEDS: Magnesium Hydroxide LIQ* 30 ML UDC PO SCH (08:06)
[2018-11-19] MEDS: Enoxaparin(*) 40 MG/0.4 ML SYR SUBCUT SCH (08:10)
[2018-11-19] MEDS: Docusate CAP* 100 MG PO SCH (08:10)
[2018-11-19] MEDS: Losartan TAB* 25 MG PO SCH (08:10)
--- NOTE | 2018-11-19 11:40 | PN ---
Subjective Date of Service: 11/19/18 Interval History: Pt seen and examined. Meds and labs reviewed. D/W Dr. Gamble and Lavonne gavin AM. Please see discussion below CC: N/A ROS: Denied HARDEN/dizziness, F/C, N/V, CP, SOB, increased cough, sputum production , abd pain, diarrhea, constipation, dysuria, myalgias, arthralgias, throat pain , and new skin lesions. The rest of the 14 point ROS are unremarkable. PHYSICAL EXAM: GEN APPEARANCE: Awake, not in acute distress HEENT: NC/AT, PERRLA, moist oral mucosa, (-) throat erythema NECK: Soft, supple, (-) cervical LAD, (-)JVD HEART: S1S2 WNL, RRR, No MRG CHEST: CTA, BL, GAE, No W/R/R ABD: Soft, ND/NT, NABS 4x Q EXT: No C/C/LLE (+)1 post-op edema SKIN: Warm to touch PSYCH: No active psychosis, hallucinations, depression, SI/HI Objective Active Medications: Acetaminophen (Tylenol Tab*) 975 mg PO Q8HR [facility] Last Admin: 11/19/18 05:57 Dose: 975 mg Atorvastatin Calcium (Lipitor*) 10 mg PO BEDTIME [facility] Last Admin: 11/18/18 21:47 Dose: 10 mg Bisacodyl (Dulcolax Supp*) 10 mg ND DAILY PRN PRN Reason: constipation Cyclobenzaprine HCl (Flexeril Tab*) 10 mg PO TID PRN PRN Reason: SPASMS Dextrose (D50w Syringe 50 Ml*) 12.5 gm IV PUSH .FOR FS < 60 - SS PRN PRN Reason: FS < 60 Diphenhydramine HCl (Benadryl Iv*) 12.5 mg IV Q6H PRN PRN Reason: PRURITIS Docusate Sodium (Colace Cap*) 100 mg PO BID [facility] Last Admin: 11/19/18 08:10 Dose: 100 mg Dulaglutide (Trulicity (Nf)) 0.75 mg SUBCUT Sa@0900 [place] Enoxaparin Sodium (Lovenox(*)) 40 mg SUBCUT Q24H [facility] Last Admin: 11/19/18 08:10 Dose: 40 mg Sodium Phosphate 15 mmole/ (Sodium Chloride) 255 mls @ 42 mls/hr IVPB ONCE ONE Stop: 11/19/18 13:31 Last Admin: 11/19/18 09:28 Dose: 42 mls/hr Insulin Human Lispro (Humalog*) 0 units SUBCUT [facility]; Protocol Last Admin: 11/19/18 07:37 Dose: Not Given Lactulose (Lactulose*) 30 ml PO Q6H PRN PRN Reason: constipation Losartan Potassium (Cozaar Tab*) 50 mg PO QAM [facility] Last Admin: 11/19/18 08:10 Dose: 50 mg Magnesium Hydroxide (Milk Of Magnesia Liq*) 30 ml PO BID [facility] Last Admin: 11/19/18 08:06 Dose: Not Given Magnesium Hydroxide (Milk Of Magnesia Liq*) 30 ml PO Q6H PRN PRN Reason: constipation Meclizine HCl (Antivert Tab*) 25 mg PO Q6H PRN PRN Reason: VERTIGO Morphine Sulfate (Morphine Vial*) 2 mg IV Q2H PRN PRN Reason: PAIN Ondansetron HCl (Zofran Inj*) 4 mg IV Q6H PRN PRN Reason: nausea Last Admin: 11/17/18 07:19 Dose: 4 mg Ondansetron HCl (Zofran Tab*) 4 mg PO Q6H PRN PRN Reason: NAUSEA Last Admin: 11/18/18 07:21 Dose: 4 mg Oxycodone HCl (Roxycodone Tab*) 10 mg PO Q4H PRN PRN Reason: SEVERE PAIN Last Admin: 11/19/18 08:10 Dose: 10 mg Oxycodone/Acetaminophen (Percocet 5/325 Tab*) 1 tab PO Q4H PRN PRN Reason: PAIN Oxycodone/Acetaminophen (Percocet 5/325 Tab*) 2 tab PO Q4H PRN PRN Reason: PAIN Last Admin: 11/18/18 17:29 Dose: 2 tab Pharmacy Profile Note (Coumadin Daily Reminder*) 0 note FOLLOW UP 1700 [facility] Last Admin: 11/18/18 17:35 Dose: 1 note Polyethylene Glycol/Electrolytes (Miralax*) 17 gm PO DAILY PRN PRN Reason: Constipation Tramadol HCl (Ultram*) 50 mg PO Q6H PRN PRN Reason: PAIN Last Admin: 11/17/18 20:35 Dose: 50 mg Vital Signs - 8 hr 11/19/18 11/19/18 11/19/18 03:48 07:43 08:00 Temperature 98.5 F 98.2 F Pulse Rate 75 81 Respiratory 16 14 18 Rate Blood Pressure 100/46 127/73 (mmHg) O2 Sat by Pulse 98 98 98 Oximetry 11/19/18 11/19/18 08:10 10:18 Temperature Pulse Rate Respiratory 18 18 Rate Blood Pressure (mmHg) O2 Sat by Pulse Oximetry Oxygen Devices in Use Now: None Result Diagrams: 11/19/18 05:37 11/19/18 05:37 Assess/Plan/Problems-Billing Assessment: - Patient Problems (1) Hyponatremia Current Visit: Yes Status: Acute Code(s): E87.1 - HYPO-OSMOLALITY AND HYPONATREMIA SNOMED Code(s): 32435778 Comment: #Euvolemic hyponatremia: -D/W Dr. Gamble; per his review 1st AM Cortisol level is likely erroneous and pt likely have transient SIADH due to pain and/or intraoperative meds given that may cause SIADH and reason why Urine Sodium is low is possibly due to fluid shifts perioperatively and may have some form of intravascular hypovolemia despite being clinically hypovolemic -Continue with 1500 cc fluid restriction until re-evaluated by PCP; per Dr. Gamble , no need to follow in his office and will defer w/PCP---defer w/Dr. Gamble (2) Vertigo Current Visit: Yes Status: Acute Code(s): R42 - DIZZINESS AND GIDDINESS SNOMED Code(s): 413432307 Comment: -Pt mentions she has had milder intermittent vertigo history but never went to MD to have this officially evaluated -Likely due to BPPV -No other focal neurological complaints -Continue Meclizine PRN as ordered (3) Osteoarthritis Current Visit: Yes Status: Acute Code(s): M19.90 - UNSPECIFIED OSTEOARTHRITIS, UNSPECIFIED SITE SNOMED Code(s): 338295499 Comment: #Severe endstage degenerative osteoarthritis of L. knee joint S/P L. TKA -POD #3 -Defer with ortho for further input (4) HYPERTENSION Current Visit: No Status: Active Comment: -Placed pt back on home meds in anticipation of planned D/Cupdated Med recc (5) Diabetes mellitus type 2 Current Visit: No Status: Active Code(s): E11.9 - TYPE 2 DIABETES MELLITUS WITHOUT COMPLICATIONS SNOMED Code(s): 81900205 Comment: -Placed pt back on home meds in anticipation of planned D/Cupdated Med recc (6) Hyperlipidemia Current Visit: Yes Status: Acute Code(s): E78.5 - HYPERLIPIDEMIA, UNSPECIFIED SNOMED Code(s): 55685091 Comment: -Continue Atorvastatin (7) Sleep apnea Current Visit: No Status: Active Code(s): G47.30 - SLEEP APNEA, UNSPECIFIED SNOMED Code(s): 24463813 Comment: -Continue CPAP qHS (8) DVT prophylaxis Current Visit: Yes Status: Acute Code(s): MGV9618 - SNOMED Code(s): 942479883 Comment: -Pt almost therapeutic with INR; Defer w/Ortho to order; my inclination is to continue with current warfarin dose as pt likely to be therapeutic in 1-2 days? Will defer Status and Disposition: -Will S/O of pts care at this time and agree with planned D/C later today -Defer pain meds and choice of DVT prophylaxis and other ortho related issues with Orthopedic team
[2018-11-19 11:57] VITALS: BP 123/66
--- NOTE | 2018-11-19 21:21 | DS ---
DISCHARGE SUMMARY: DATE OF ADMISSION: 11/16/18 DATE OF DISCHARGE: 11/19/18 ATTENDING PHYSICIAN: Dr. Danica Stoddard.* (DICTATED BY SANTANA ROSENBAUM) ADMISSION DIAGNOSIS: Severe end-stage degenerative osteoarthritis of the left knee. DISCHARGE DIAGNOSES: 1. Severe end-stage degenerative osteoarthritis of the left knee joint. 2. Postoperative hyponatremia. SURGERY PERFORMED: Left total knee arthroplasty. HOSPITAL COURSE: The patient is a 68-year-old female with years of increasingly severe left knee pain. She failed conservative management with anti- inflammatories, pain medication, intraarticular corticosteroid injections , and physical therapy. Due to continued pain and decreased quality of life, she elected to proceed with left total knee arthroplasty. She was taken to the operating room under the care of Dr. Danica Stoddard on the date of 11/16/18 for the aforementioned procedure. She left the operating room in stable condition. Postoperatively, she progressed satisfactorily with her physical therapy and occupational therapy goals, bearing weight as tolerated on the left lower extremity. Postoperatively, it was noted that she had low sodium levels. Her fluids were restricted, but her levels did not improve. She was followed by the Medical Service and consultation was requested, and Dr. Gamble evaluated the patient. It was felt that SIADH was most likely the cause of her hyponatremia, which did resolve by the date of 11/19/18. There was recommendation of mild water restriction upon her discharge today to 1.5 L of fluid daily. It was felt that a followup with her primary care physician, Dr. Desouza, next week with a serum sodium measurement in a week would be appropriate and she was stable for discharge to home this afternoon. CONDITION ON DISCHARGE: The patient is feeling well. She denies shortness of breath, chest pain, or dizziness upon ambulation. She is bearing weight as tolerated on the left lower extremity. Vital signs show that her temperature is 98.2, pulse 71, respiratory rate 16, O2 sat is 100% on room air, blood pressure 123/66. Her sodium level increased to 135 today from a measurement of 123 on 11/18/18. Her left knee incision is healing without evidence of infection. Her calf is soft and nontender. She has active dorsiflexion of her left ankle. Her sensation and circulation remain intact distally. PLAN: Discharge to home, 11/19/18, bearing weight as tolerated on the left lower extremity. She was provided with a prescription of oxycodone 10 mg 1 p.o. q.4 hours p.r.n. pain, #42 tablets. Prescription of Coumadin for her DVT prophylaxis is also provided. She is instructed to take 4 mg of Coumadin, Thursday11/19/18; 2 mg of Coumadin, Thursday11/20/18; and 4 mg Thursday11/21/18. She will have repeat INR blood draw on 11/22/18, with subsequent dosages to follow. The patient will follow up with Dr. Desouza within 1 week and have repeat sodium levels done. She will continue with the 1500 cc fluid restriction as recommended. We will see her in followup in the office in 10 to 14 days as previously scheduled with Dr. Stoddard. SANTANA ROSENBAUM [id number]/[facility] #: [id number] MICHAEL
[2018-11-20] MEDS ORDERED: PTO: Dulaglutide (NF) 0.75 MG/0.5 ML SYRINGE SUBCUT SCH (10:42)
== END 2018-11-19 15:31 | disposition home or self-care (01) | DRG 470 ==
LOC: AA 06:18 → SSU 10:35
PROVIDERS: ADMIT Orthopaedic Surgery Adult Reconstructive Orthopaedic Surgery; ATTEND Orthopaedic Surgery Adult Reconstructive Orthopaedic Surgery
PROC: 0SRD0J9 Replacement of Left Knee Joint with Synthetic Substitute, Cemented, Open Approach (ICD-10-PCS; principal; 2018-11-16 08:00)
DX: M17.12 Unilateral primary osteoarthritis, left knee (principal); E22.2 Syndrome of inappropriate secretion of antidiuretic hormone; I10 Essential (primary) hypertension; E78.5 Hyperlipidemia, unspecified; E89.0 Postprocedural hypothyroidism; M25.462 Effusion, left knee; G47.33 Obstructive sleep apnea (adult) (pediatric); E11.319 Type 2 diabetes mellitus with unspecified diabetic retinopathy without macular edema; K76.0 Fatty (change of) liver, not elsewhere classified; M25.762 Osteophyte, left knee; Z77.22 Contact with and (suspected) exposure to environmental tobacco smoke (acute) (chronic); R42 Dizziness and giddiness; E66.9 Obesity, unspecified; Z90.710 Acquired absence of both cervix and uterus; Z90.49 Acquired absence of other specified parts of digestive tract; Z88.0 Allergy status to penicillin; Z88.2 Allergy status to sulfonamides; Z88.8 Allergy status to other drugs, medicaments and biological substances; Z82.49 Family history of ischemic heart disease and other diseases of the circulatory system; Z83.3 Family history of diabetes mellitus; Z72.89 Other problems related to lifestyle; Z68.29 Body mass index [BMI] 29.0-29.9, adult
CPT/HCPCS: 36415; 80048; 80053; 80061; 82533; 82570; 83735; 83930; 83935; 84100; 84300; 84439; 84443; 85014; 85018; 85025; 85049; 85610; 88305; 88311; A9270-GY; G8978-GP-CJ; G8979-GP-CI; G8987-GO-CI; G8988-GO-CI; G8989-GO-CI; J0834; J1100; J1650; J1720; J1885; J2250; J2405; J2704; J2795; J3010